=== PATIENT | female | born 1970 | race Caucasian/White ===

== ENCOUNTER 2020-02-12 08:18 | Outpatient (CLI) | payer OTHER, SELFPAY ==
--- NOTE | ~2020-02-12 | US_ITS ---
EXAMINATION: US carotid duplex BI EXAM DATE: 02/12/2020 09:04 INDICATION: Disturbance. TECHNIQUE: Grayscale, color and pulsed Doppler images of the cervical carotid arteries were obtained . The degree of vessel stenosis is placed in one of the following categories: normal, <50% stenosis, 50-69% stenosis, >=70% stenosis but less than near-occlusion, near-occlusion, or occlusion. Note that percent stenosis relative to normal distal artery lumen diameter is indirectly measured from velocit y measurements as described by Malcom, et al. Radiology 2003; 229:340-346. There is no prior study fo r comparison. FINDINGS: RIGHT SIDE: Right common carotid artery peak systolic velocity (PSV in cm/s): 128 Right bulb/internal carotid artery peak systolic velocity (PSV in cm/s): 123 Right internal carotid artery end diastolic velocity (EDV in cm/s): 33 Right ICA/CCA peak systolic ratio: 1.0 Right external carotid artery peak systolic velocity (PSV in cm/s): 198 Right vertebral artery antegrade flow: yes There is no focal plaque identified. LEFT SIDE: Left common carotid artery peak systolic velocity (PSV in cm/s): 122 Left bulb/internal carotid artery peak systolic velocity (PSV in cm/s): 110 Left internal carotid artery end diastolic velocity (EDV in cm/s): 37 Left ICA/CCA peak systolic ratio: 0.9 Left external carotid artery peak systolic velocity (PSV in cm/s): 122 Left vertebral artery antegrade flow: yes There is no focal plaque identified. IMPRESSION: 1. Normal right internal carotid artery. 2. Normal left internal carotid artery. Reviewed, dictated and finalized at location A.
== END 2020-02-12 08:19 | disposition home or self-care (01) ==
LOC: ANHIMG 08:20
PROVIDERS: PCP Internal Medicine; Visit Provider Clinical Nurse Specialist
DX: H53.9 Unspecified visual disturbance (principal)
CPT/HCPCS: 93880

== ENCOUNTER → 2021-09-28 14:49 | Outpatient (CLI) | payer OTHER, SELFPAY ==
--- NOTE | ~2021-09-28 | MR_ITS ---
EXAMINATION: MR shoulder RT wo con DATE: 09/28/2021 15:29 INDICATION: Right shoulder pain TECHNIQUE: Magnetic resonance imaging (MRI) of the right shoulder was performed without intravenous c ontrast. Sequences included axial PD-weighted FS FSE, coronal oblique PD-weighted FS FSE, coronal obl ique T2-weighted FS FSE, sagittal PD-weighted FS FSE, and sagittal T1-weighted SE. COMPARISON: None. FINDINGS: Coracoacromial arch: The acromion undersurface is curved in morphology (type II). The coracoacromial ligament is normal. M oderate acromioclavicular osteoarthritis with small inferiorly directed osteophytes. Rotator cuff: Severe supraspinatus tendinopathy with small amount of subtle bursal sided fraying without discrete t ear. Moderate infraspinatus tendinopathy also without discrete tear. The teres minor tendon is normal . Mild to moderate subscapularis tendinopathy with small split tear between the portion of the tendon attached to the lesser tuberosity and the portion attached to the transverse humeral ligament. Is pa rtial subluxation of the long head of the biceps tendon across the medial rim of the intertubercular groove and into the tear defect. Normal rotator cuff muscle bulk and signal. Biceps tendon, glenoid labrum and glenohumeral cartilage: Long head of the biceps tendon is normal. Small tear at the base of the 9:30-10:30 position of the po sterior superior glenoid labrum. Partial-thickness cartilage loss at the glenoid with smooth chondral surface which is greatest at the posterior superior glenoid. Additional partial thickness cartilage loss along the apex of the humeral head. Fluid: Physiologic amount of fluid in the glenohumeral joint and biceps tendon sheath. No loose osteochondr al bodies. Small amount of fluid in the subacromial/subdeltoid bursa consistent with mild bursitis. Bones: No fracture or pathologic marrow replacing process. Mild cystic changes along the superior facet of t he greater tuberosity as well as at the lesser tuberosity likely related to chronic rotator cuff dise ase. IMPRESSION: 1. Severe supraspinatus and moderate infraspinatus tendinopathy with small amount of shallow bursal s ided fraying of the distal supraspinatus tendon. 2. Mild to moderate subscapularis tendinopathy with the long head of the biceps tendon subluxed acros s the medial rim of the intertubercular groove into a 1 cm long longitudinal split tear situated betw een the portion of the tendon attached to the lesser tuberosity and the bursal side of the tendon whi ch is contiguous with the transverse humeral ligament. 3. Mild glenohumeral osteoarthritis with small tear at the posterior superior glenoid labrum. 4. Moderate acromioclavicular osteoarthritis with mild underlying subacromial/subdeltoid bursitis. Reviewed, dictated and finalized at location A. IMPRESSION: 1. Severe supraspinatus and moderate infraspinatus tendinopathy with small amou nt of shallow bursal sided fraying of the distal supraspinatus tendon. 2. Mild to moderate subscapularis tendinopathy with the long head of the biceps tendon subluxed across the medial rim of the intertubercular groove into a 1 c m long longitudinal split tear situated between the portion of the tendon attac hed to the lesser tuberosity and the bursal side of the tendon which is contigu ous with the transverse humeral ligament. 3. Mild glenohumeral osteoarthritis with small tear at the posterior superior g lenoid labrum. 4. Moderate acromioclavicular osteoarthritis with mild underlying subacromial/s ubdeltoid bursitis.
== END ==
PROVIDERS: Visit Provider Orthopaedic Surgery
DX: M19.011 Primary osteoarthritis, right shoulder (principal)
CPT/HCPCS: 73221

== ENCOUNTER 2022-09-02 00:59 | Day surgery (SDC) | payer OTHER, SELFPAY ==
[2022-08-16 13:31] VITALS: BMI 39.5
[2022-09-02 09:20] VITALS: BP 139/75; PULSE 60; RESP 18; TEMP 35.9; O2SAT 100
[2022-09-02] MEDS: LACTATED RINGERS 1,000 ML 150 ML IV CONT (09:29)
--- NOTE | 2022-09-02 09:33 | WPDANESEPPF ---
Anes - Initial Pre Proc Eval Procedure: Operation Date: 09/02/22 10:30 Proposed Procedures p Screening Colonoscopy - Jamie Dixon MD Date/Time: 09/02/22 09:33 Surgeon: Jamie Dixon MD Pre Op Diagnosis: neoplasm screening Patient Data Age: 52 Gender: F Height: 1.73 m Weight: 119 kg Last Vital Signs Temp 35.9 C L 09/02/22 09:20 Pulse 60 09/02/22 09:20 Resp 18 09/02/22 09:20 BP 139/75 09/02/22 09:20 Pulse Ox 100 09/02/22 09:20 O2 Del Method Room Air 09/02/22 09:20 Allergies Allergy/AdvReac Type Severity Reaction Status Date / Time No Known Allergies Allergy Verified 09/02/22 09:19 Home Medications Medication Instructions Recorded Confirmed Type multivitamin 1 tablet PO DAILY 04/17/21 08/16/22 History cetirizine 10 mg capsule (Zyrtec) 10 mg PO DAILY 07/17/22 08/16/22 History montelukast 10 mg tablet 10 mg PO DAILY 08/16/22 08/16/22 History Patient hx anesthesia problems: none Family hx anesthesia problems: none Results Review: All pre-operative results and documents have been reviewed as part of the pre-operative evaluation. [facility] Past Medical History Medical History Genital warts Hammer toe Screening mammogram, encounter for Surgical History Surgical History Delivery by section x2 2002, 2006 History of cervical polypectomy (01/24/12) in office--benign endocervical polyp History of dilation and curettage 02/04/12 hscope d&c--benign proliferative endometrium 02/23/14 hscope d&c--early secretory endometrium History of endometrial ablation 06/18/12 Novasure ablation--menorrhagia History of foot surgery (~2001) hammer toes History of rotator cuff surgery (03/18/17) left shoulder Family History Family History Father Diabetes mellitus Family history of lung cancer Family history of atrial fibrillation Heart disease Kidney disease Grandparent Family history of cardiovascular disease Family history of pancreatic cancer Family history of lung cancer Family history of throat cancer Mother Family history of liver disease Family history of atrial fibrillation Cerebrovascular accident Osteoporosis Social History Social History Smoking status: Never smoker Alcohol intake: current Drinks per week: 1 Alcohol use details: occasionally Substance use: never Substance use type: does not use Lack of Transportation: No Lack of Food: Never True Current Housing: I Have Housing Concerned About Future Housing: No Difficulty Paying Gas/Electric Bills: No Difficulty Paying for Meds: No Currently Unemployed: No Education: Bachelor's Degree Difficulty w/ Childcare or Family Care: No Living arrangements: with family Additional living arrangements comments: Occupation/Education: occupation 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[employer] Gender identity (if verbalized by the patient): Female Sexual Orientation (if Verbalized by the Patient): Straight or Heterosexual Spiritual care concerns: No Anes - Eval Final PreProcedure Day of Procedure 09/02/22 09:33 Patient weight: morbidly obese Heart: regular rate and rhythm Lungs: clear to auscultation and normal air movement Airway: Mallampati scale class II Neurological: alert and oriented Last oral intake: >/= 8 hours ASA classification: III Emergent: no Anesthetic plan: proceed Anesthesia type and monitoring: general GIVS Results Review: All pre-operative results and documents have been reviewed as part of the pre-operative evaluation. Informed Consent: The patient's anesthetic plan and its attendant risks and benefits were discussed with the patient/family/POA. Question
--- NOTE | 2022-09-02 09:57 | PM.HPGS ---
History of Present Illness History of Present Illness Consent: Risks, benefits, and alternatives have been discussed and questions answered. Patient agrees to proceed with procedure. Chief complaint: neoplasm screening Narrative: Romi Bradley is a 52 year old female here for first screening colonoscopy Review of Systems Constitutional: Constitutional: Denies headache(s) and Denies weakness Eyes: Eyes: Denies blurry vision ENT: Reports Normal hearing present, Denies headache(s) and Denies neck pain Cardiovascular: Cardiovascular: Denies chest pain and Denies dyspnea Respiratory: Respiratory: Denies dyspnea Gastrointestinal: Gastrointestinal: Reports no additional gastrointestinal complaints Genitourinary: Genitourinary: Denies dysuria Musculoskeletal: Musculoskeletal: Denies neck pain Integumentary/Breasts: Skin/Breast: Denies dry skin Neurologic: Reports Normal hearing present, Denies headache(s) and Denies weakness Psychiatric: Psychiatric: Denies anxiety Endocrine: Endocrine: Denies change in body appearance Hematologic/Lymphatic: Hematologic/Lymphatic: Denies easy bleeding Allergic/Immunologic: Allergic/Immunologic: Denies urticaria PMF Past Medical History Medical History (Updated 09/02/22 @ 09:57 by Jamie Dixon MD) Colon cancer screening Genital warts Hammer toe Screening mammogram, encounter for Surgical History Surgical History Delivery by section x2 2002, 2006 History of cervical polypectomy (01/24/12) in office--benign endocervical polyp History of dilation and curettage 02/04/12 hscope d&c--benign proliferative endometrium 02/23/14 hscope d&c--early secretory endometrium History of endometrial ablation 06/18/12 Novasure ablation--menorrhagia History of foot surgery (~2001) hammer toes History of rotator cuff surgery (03/18/17) left shoulder Family History Family History Father Diabetes mellitus Family history of lung cancer Family history of atrial fibrillation Heart disease Kidney disease Grandparent Family history of cardiovascular disease Family history of pancreatic cancer Family history of lung cancer Family history of throat cancer Mother Family history of liver disease Family history of atrial fibrillation Cerebrovascular accident Osteoporosis Social History Social History Smoking status: Never smoker Alcohol intake: current Drinks per week: 1 Alcohol use details: occasionally Substance use: never Substance use type: does not use Lack of Transportation: No Lack of Food: Never True Current Housing: I Have Housing Concerned About Future Housing: No Difficulty Paying Gas/Electric Bills: No Difficulty Paying for Meds: No Currently Unemployed: No Education: Bachelor's Degree Difficulty w/ Childcare or Family Care: No Living arrangements: with family Additional living arrangements comments: Occupation/Education: occupation 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[employer] Gender identity (if verbalized by the patient): Female Sexual Orientation (if Verbalized by the Patient): Straight or Heterosexual Spiritual care concerns: No Meds Home Medications and Allergies Home Medications Medication Instructions Recorded Confirmed Type multivitamin 1 tablet PO DAILY 04/17/21 08/16/22 History cetirizine 10 mg capsule (Zyrtec) 10 mg PO DAILY 07/17/22 08/16/22 History montelukast 10 mg tablet 10 mg PO DAILY 08/16/22 08/16/22 History Allergies Allergy/AdvReac Type Severity Reaction Status Date / Time No Known Allergies Allergy Verified 09/02/22 09:19 Vital Signs Vital Signs - 24 hr 09/02/22 09:20 Temperature 96.6 F L Pulse Rate 60 Respiratory Rate 18 Blood Pressure 139/
[2022-09-02 10:18] VITALS: BP 87/48; PULSE 82; RESP 20; O2SAT 97
[2022-09-02 10:28] VITALS: BP 97/52; PULSE 72; RESP 17; O2SAT 96
[2022-09-02 10:38] VITALS: BP 102/52; PULSE 74; RESP 16; O2SAT 98
== END 2022-09-02 10:49 | disposition home or self-care (01) ==
PROVIDERS: PCP Physician Assistant; Visit Provider Internal Medicine Gastroenterology
PROC: 0DJD8ZZ Inspection of Lower Intestinal Tract, Via Natural or Artificial Opening Endoscopic (ICD-10-PCS; CPT 45378; principal; 2022-09-02 10:30)
DX: Z12.11 Encounter for screening for malignant neoplasm of colon (principal); K57.30 Diverticulosis of large intestine without perforation or abscess without bleeding; K64.8 Other hemorrhoids; E66.01 Morbid (severe) obesity due to excess calories; Z68.39 Body mass index [BMI] 39.0-39.9, adult
CPT/HCPCS: 45378; J2704; J7120

== ENCOUNTER 2022-09-27 08:03 | Outpatient (CLI) | payer OTHER, SELFPAY ==
--- NOTE | ~2022-09-27 | MM_ITS ---
EXAMINATION: MM screening laura BI w cami HISTORY: Screening mammogram TECHNIQUE: Craniocaudal and mediolateral oblique 3-D tomosynthesis images were obtained and synthetic 2-D images were generated. CAD analysis was submitted and interpreted. COMPARISON: 03/23/2018, 02/22/2017, 12/21/2015 bilateral screening mammogram examinations BREAST PARENCHYMAL COMPOSITION: There are scattered areas of fibroglandular density. FINDINGS: There is no evidence of suspicious mass, calcification, or architectural distortion to sugg est malignancy in either breast. There has been no suspicious interval change. IMPRESSION: 1. No mammographic evidence of malignancy. 2. Recommend routine screening mammography in one year. BI-RADS Category 1: Negative Reviewed, dictated and finalized at location A.
== END 2022-09-27 08:04 | disposition home or self-care (01) ==
LOC: ANHIMG 08:04
PROVIDERS: PCP Physician Assistant; Visit Provider Obstetrics & Gynecology
DX: Z12.31 Encounter for screening mammogram for malignant neoplasm of breast (principal)
CPT/HCPCS: 77063; 77067

== ENCOUNTER 2023-09-29 07:21 | Outpatient (CLI) | payer OTHER, SELFPAY ==
--- NOTE | ~2023-09-29 | MM_ITS ---
EXAMINATION: MM screening laura BI w cami HISTORY: Screening TECHNIQUE: Craniocaudal and mediolateral oblique 3-D tomosynthesis images were obtained and synthetic 2-D images were generated. CAD analysis was submitted and interpreted. COMPARISON: Comparison to multiple prior studies sequentially, with oldest reviewed study dated 09/2014. BREAST PARENCHYMAL COMPOSITION: Not dense: There are scattered areas of fibroglandular density. FINDINGS: There is no evidence of suspicious mass, calcification, or architectural distortion to sugg est malignancy in either breast. There has been no suspicious interval change. IMPRESSION: 1. No mammographic evidence of malignancy. 2. Recommend routine screening mammography in one year. BI-RADS Category 1: Negative Reviewed, dictated and finalized at location A.
== END 2023-09-29 07:22 | disposition home or self-care (01) ==
LOC: ANHIMG 07:23
PROVIDERS: PCP Physician Assistant; Visit Provider Obstetrics & Gynecology
DX: Z12.31 Encounter for screening mammogram for malignant neoplasm of breast (principal)
CPT/HCPCS: 77063; 77067

== ENCOUNTER 2023-11-07 16:58 | Observation (INO) | payer OTHER, SELFPAY ==
[2023-11-07] VITALS (15 sets, daily range): BP systolic 102–142; BP diastolic 67–118; PULSE 56–158; RESP 12–20; TEMP 36.2–36.8; O2SAT 97–100
--- NOTE | ~2023-11-07 | XR_ITS ---
EXAMINATION: XR chest 2V DATE: 11/07/2023 17:39 INDICATION: Mid chest pain TECHNIQUE: PA and lateral views of the chest were obtained. COMPARISON: Chest radiograph dated 02/08/2013 FINDINGS: The lungs remain clear with no focal airspace opacities, pulmonary edema, pleural effusion or pneumot horax. The cardiomediastinal silhouette is normal. Moderate thoracic spondylosis. IMPRESSION: 1. No acute cardiopulmonary disease. Reviewed, dictated and finalized at location A.
--- NOTE | ~2023-11-07 | CT_ITS ---
EXAMINATION: CTA chest PE protocol DATE: 11/08/2023 17:43 INDICATION: AFib, chest pain, elevated Trop TECHNIQUE: Computed tomography angiography (CTA) of the chest was performed with 100 mL Omnipaque-350 intravenous contrast timed to evaluate the pulmonary arteries. Coronal maximum intensity projection 3D-reconstructions were created by the technologist. The dose-length product (DLP) was 840.19 mGy-cm. Automated exposure control and iterative reconstruction technique were employed. COMPARISON: X-ray chest, same date. FINDINGS: Lung parenchyma and airways: Scattered patchy areas of groundglass opacity. Mild septal thickening. P atent airways. Pleura: Unremarkable. Thoracic inlet, axillae and chest wall: Unremarkable. Thoracic aorta: No significant dilation. No dissection. Mediastinum: Normal. Heart and pericardium: Mild cardiomegaly. Coronary artery calcifications: Absent. Upper abdomen: No significant finding. Bones: No acute osseous finding. Pulmonary arteries: Study quality: Adequate. No pulmonary emboli detected. IMPRESSION: No CT evidence of acute pulmonary embolus. No acute process detected in the chest. Reviewed, dictated and finalized at location K.
--- NOTE | 2023-11-07 17:09 | ECG_ITS ---
SEE SCANNED COPY FOR CONFIRMED REPORT MTDD
[2023-11-07 17:25] LABS: Basophils Percent Auto 0.5 % (0.2-1.2); Eosinophils Absolute Auto 0.1 K/mm3 (0-0.3); Eosinophils Percent Auto 1.6 % (0-4.4); Hematocrit 41.8 % (37.0-47.0); Hemoglobin 13.4 g/dL (12.0-15.0); Immature Granulocyte Absolute 0.04 K/mm3 (0.00-0.031); Immature Granulocyte Percent A 0.5 % (0-0.5); Lymphocytes Absolute Auto 1.65 K/mm3 (0.9-3.2); Lymphocytes Percent Auto 21.3 % (18.3-44.2); Mean Corpuscular HGB Conc 32.1 g/dl (32-36); Mean Corpuscular Hemoglobin 27.5 pg (26-34); Mean Corpuscular Volume 85.7 fl (80-100); Mean Platelet Volume 9.8 fl (7.4-10.4); Monocytes Absolute Auto 0.5 K/mm3 (0.1-0.6); Monocytes Percent Auto 6.7 % (2.6-8.5); Neutrophils Absolute Auto 5.4 K/mm3 (1.3-6.7); Neutrophils Percent Auto 69.4 % (45.5-73.1); Platelet Count Result 301 k/mm3 (150-375); Red Blood Count 4.88 M/mm3 (4.2-5.4); Red Cell Distribution Width 14.2 % (11.5-14.5); White Blood Count 7.7 K/mm3 (4.5-10.0)
[2023-11-07 17:34] LABS: Prothrombin Time 13.5 Seconds (11.1-14.7)
[2023-11-07 17:35] LABS: Alanine Aminotransferase 33 U/L (6-35); Albumin Level 4.2 g/dL (3.5-5.1); Alkaline Phosphatase 87 U/L (38-126); Anion Gap 8 mmol/L (4-12); Aspartate Amino Transferase 37 U/L (14-36); Bilirubin,Total 0.5 mg/dL (0.2-1.3); Blood Urea Nitrogen 16 mg/dL (7-17); Carbon Dioxide 23 mmol/L (22-30); Chloride 108 mmol/L (98-107); Estimated CRCL calculation 129 ml/min; Estimated Glomerular Filt Rate > 60; Glucose 119 mg/dL (65-110); Lipase 202 U/L (23-300); Partial Thromboplastin Time 30.7 Seconds (22.3-36.8); Potassium 4.1 mmol/L (3.4-5.0); Sodium 139 mmol/L (137-145)
[2023-11-07 17:47] LABS: Troponin I 0.026 ng/mL (0.000-0.034)
--- NOTE | 2023-11-07 17:47 | ED.GENADULT ---
HPI - General Adult General Chief complaint: Arrhythmia/Palpitations Stated complaint: chest pain/panic attack Time Seen by Provider: 11/07/23 17:25 History of Present Illness HPI narrative: Patient is a 53 year old female with history of vertigo, phantom smells here with palpitations and chest pain. Patient notes that at 1 pm she began feeling mid sternal chest pressure along with palpitations. She notes that it is anxiety provoking and caused her to seek care. About 2 months ago she had a similar episode but it self resolved. She has been awaiting to get in with her PCP but there has been a delay in being able to get into the clinic and coordinate schedules with her PCP. Patient denies any recent illnesses. Denies any changes in medications. No personal cardiac history. She notes that both of her parents have history of afib. Related Data Home Medications Medication Instructions Recorded Confirmed multivitamin 1 tablet PO DAILY 04/17/21 07/18/23 cetirizine 10 mg capsule (Zyrtec) 10 mg PO DAILY 07/17/22 07/18/23 calcium carbonate (Calcium Antacid) 400 mg PO DAILY 04/28/23 07/18/23 Allergies Allergy/AdvReac Type Severity Reaction Status Date / Time No Known Allergies Allergy Verified 11/07/23 17:08 Review of Systems Review of Systems: All systems reviewed & are unremarkable except as noted in HPI and below [facility] Past Medical History Medical History Colon cancer screening Genital warts Hammer toe Screening mammogram, encounter for Surgical History Surgical History Delivery by section x2 2002, 2006 History of cervical polypectomy (01/24/12) in office--benign endocervical polyp History of dilation and curettage 02/04/12 hscope d&c--benign proliferative endometrium 02/23/14 hscope d&c--early secretory endometrium History of endometrial ablation 06/18/12 Novasure ablation--menorrhagia History of foot surgery (~2001) hammer toes History of rotator cuff surgery (03/18/17) left shoulder Family History Family History Father Diabetes mellitus Family history of lung cancer Family history of atrial fibrillation Heart disease Kidney disease Grandparent Family history of cardiovascular disease Family history of pancreatic cancer Family history of lung cancer Family history of throat cancer Mother Family history of liver disease Family history of atrial fibrillation Cerebrovascular accident Osteoporosis Carcinoma of colon Social History Social History Smoking status: Never smoker Second hand tobacco smoke exposure: No Alcohol intake: current Drinks per week: 1 Alcohol use details: occasionally Substance use: never Substance use type: does not use Lack of Transportation: No Lack of Food: Never True Current Housing: I Have Housing Concerned About Future Housing: No Difficulty Paying Gas/Electric Bills: No Difficulty Paying for Meds: No Currently Unemployed: No Education: Bachelor's Degree Difficulty w/ Childcare or Family Care: No Living arrangements: with family Additional living arrangements comments: Occupation/Education: occupation 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 HEAD: Normocephalic, atraumatic. EYES: PERRLA and EOMI. ENT: Nares clear. Mucous membranes moist. NECK: Supple. CHEST: Clear to auscultation. No respiratory distress. HEART: Tachycardia, irregularly irregular. Normal peripheral pulses. ABDOMEN: Soft,
[2023-11-07] MEDS: METOPROLOL TARTRATE INJ 5 MG/5 ML VIAL IV PUSH (17:58)
[2023-11-07] MEDS: LACTATED RINGERS 1,000 ML 999 ML IV CONT (18:02)
[2023-11-07] MEDS: ONDANSETRON INJ 4 MG/2 ML VIAL IV PUSH (18:02)
[2023-11-07] MEDS: ASPIRIN 81 MG CHEWABLE TABLET 324 MG PO (18:15)
[2023-11-07 20:47] LABS: Troponin I 0.128 ng/mL (0.000-0.034)
--- NOTE | 2023-11-07 20:50 | ECG_ITS ---
SEE SCANNED COPY FOR CONFIRMED REPORT MTDD
[2023-11-07] MEDS: ENOXAPARIN 120 MG/0.8 ML SYRINGE SUB-Q (21:32)
--- NOTE | 2023-11-07 21:43 | ADMGEN ---
2143: This patient, Romi Bradley, was admitted to IMU Room 211-01. Patient/family oriented to hospital policies and general routines including ID bracelet, bed and alarms, visiting hours, pain management, procedures, bathroom and other care routines, personal items, smoking policy, room service/diet, and visiting hours. Information on how to activate the Rapid Response Team has been discussed. Patient/Family are encouraged to report perceived risks to care and to ask questions if they do not understand what they are told or what they should do.
--- NOTE | 2023-11-07 23:22 | PM.IMHP ---
H&P: HPI History of Present Illness Date/Time: 11/07/23 23:00 Chief Complaint: Palpitations. Narrative: This is a pleasant 53-year-old female out significant medical history presented to the emergency department via private vehicle for evaluation of palpitations. The patient provides the following history. She has been working on a stressful project at work and today she was sitting at her desk when she suddenly developed palpitations and heaviness in the center of her chest associated with mild shortness of breath and nausea. Symptoms lasted several hours and did not let up so she came in for evaluation. On arrival to the ED her heart rate was in the upper 190s, presumably in rapid atrial fibrillation. She converted to normal sinus rhythm after receiving 5 mg IV metoprolol tartrate. The heaviness she had been feeling in her chest went away as soon as her heart rate slowed down. She has had similar palpitation though they have always been self-limiting and have never lasted this long. Several times they have occurred at nighttime or while lying down in bed. She has been told that she has a heart murmur and remembers having an echo done many years ago and that it was benign. She has no known history of thyroid disease or sleep apnea. No significant caffeine or alcohol use. She has not had any episodes of exertional chest pain or shortness of breath. Review of Systems Review of Systems: 12 systems were reviewed and are negative except for as per HPI. [facility] Past Medical History Medical History (Updated 11/07/23 @ 23:27 by Brionna Kolb PA-C) Morbid obesity with BMI of 40.0-44.9, adult Perimenopause Phantosmia Surgical History Surgical History Delivery by section x2 2002, 2006 History of cervical polypectomy (01/24/12) in office--benign endocervical polyp History of dilation and curettage 02/04/12 hscope d&c--benign proliferative endometrium 02/23/14 hscope d&c--early secretory endometrium History of endometrial ablation 06/18/12 Novasure ablation--menorrhagia History of foot surgery (2001) hammer toes History of rotator cuff surgery (03/18/17) left shoulder Family History Family History Father Diabetes mellitus Family history of lung cancer Family history of atrial fibrillation Heart disease Kidney disease Grandparent Family history of cardiovascular disease Family history of pancreatic cancer Family history of lung cancer Family history of throat cancer Mother Family history of liver disease Family history of atrial fibrillation Cerebrovascular accident Osteoporosis Carcinoma of colon Social History Social History (Updated 11/07/23 @ 23:28 by Brionna Kolb PA-C) Social History: Surrogate medical decision maker: Doyle Rohanlele, spouse. Code status: Full code. Smoking status: Never smoker Second hand tobacco smoke exposure: No Alcohol intake: current Drinks per week: 1 Alcohol use details: occasionally Substance use: never Substance use type: does not use Do You Feel Safe in your Home?: Yes Lack of Transportation: No Lack of Food: Never True Current Housing: I Have Housing Concerned About Future Housing: No Difficulty Paying Gas/Electric Bills: No Difficulty Paying for Meds: No Currently Unemployed: No Education: Bachelor's Degree Difficulty w/ Childcare or Family Care: No Living arrangements: with family Additional living arrangements comments: . Lives with spouse in [place]. They have 2 children. 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 Spiritual care concerns: No Meds Home Medications and Allergies Home Medications Medication Instructions Recorded Confirmed Type multivitamin 1 tablet PO DAILY 04/17/21
[2023-11-07] MEDS: MELATONIN 5 MG TABLET PO (23:30)
[2023-11-07 23:34] LABS: Cholesterol 191 mg/dL (0-200); HDL Direct 51 mg/dL; Triglycerides 140 mg/dL (<150)
[2023-11-07 23:44] LABS: LDL Cholesterol Direct 116 mg/dL
[2023-11-07 23:52] LABS: Troponin I 0.396 ng/mL (0.000-0.034)
[2023-11-07] MEDS: METOPROLOL TARTRATE 25 MG TABLET PO (23:59)
[2023-11-08] VITALS (13 sets, daily range): BP systolic 102–117; BP diastolic 51–71; PULSE 60–92; RESP 16–18; TEMP 36.2–36.8; O2SAT 95–99
[2023-11-08 05:02] LABS: Anion Gap 2 mmol/L (4-12); Blood Urea Nitrogen 17 mg/dL (7-17); Calcium 8.6 mg/dL (8.4-10.2); Carbon Dioxide 31 mmol/L (22-30); Chloride 106 mmol/L (98-107); Estimated CRCL calculation 112 ml/min; Estimated Glomerular Filt Rate > 60; Glucose 108 mg/dL (65-110); Potassium 4.5 mmol/L (3.4-5.0); Sodium 139 mmol/L (137-145)
--- NOTE | 2023-11-08 06:00 | ECHO_ITS ---
Patient Info Name: Romi Bradley Age: 53 years : 1970 Gender: Female Ht: 68 in Wt: 273 lbs BSA: 2.50 m2 HR: 63 bpm BP: 102 / 51 mmHg Heart Rhythm: Sinus Rhythm Technical Quality: Good Exam Date: 11/08/2023 8:43 AM Exam Location: Echo Lab Patient Status: Outpatient Admit Date: 11/07/2023 Staff Ordering Physician: Radha Tello MD Java Software Engineer: Prince Leija RDCS Attending Provider: Sánchez Fernandez MD Exam Type: CA echo doppler color flow Study Info Indications - elevated troponin Complete two-dimensional, color flow and Doppler transthoracic echocardiogram is performed. Summary 1. Complete two-dimensional, color flow and Doppler transthoracic echocardiogram is performed. 2. Technically difficult study with limited views. Regional wall motion assessment limited due to poor endomyocardial border definition several views. 3. Left ventricular chamber dimension is normal. 4. Left ventricular systolic function is normal, estimated at 65-70%. 5. There is moderately increased left ventricular wall thickness. 6. The left ventricular diastolic function is normal. 7. Left atrial chamber dimension is mildly enlarged. 8. Right atrial chamber dimension is mildly enlarged. 9. There is mild mitral valve regurgitation. 10. The mitral valve has thickened leaflets. 11. There is trace tricuspid valve regurgitation. 12. Mild pulmonary hypertension, estimated pulmonary arterial systolic pressure is 35 mmHg. Left Ventricle Technically difficult study with limited views. Regional wall motion assessment limited due to poor endomyocardial border definition several views. Left ventricular chamber dimension is normal. Left ventricular systolic function is normal, estimated at 65-70%. There is moderately increased left ventricular wall thickness. The left ventricular diastolic function is normal. Right Ventricle Right ventricular chamber dimension is normal. Right ventricular systolic function is normal. Left Atria Left atrial chamber dimension is mildly enlarged. Right Atria Right atrial chamber dimension is mildly enlarged. Aortic Valve The aortic valve is not well visualized. There is no aortic valve stenosis. There is no aortic valve regurgitation. Pulmonic Valve The pulmonic valve is not well visualized. There is trace pulmonic regurgitation. Mitral Valve The mitral valve has thickened leaflets. There is mild mitral valve regurgitation. Tricuspid Valve The tricuspid valve leaflets are normal. There is trace tricuspid valve regurgitation. Mild pulmonary hypertension, estimated pulmonary arterial systolic pressure is 35 mmHg. Pericardium/Pleural The pericardium appears normal. There is small pericardial effusion. Aorta The aortic root size at the sinus of Valsalva is normal. The prox ascending aorta size is normal. Left Ventricular Outflow Tract Name Value Normal LVOT 2D LVOT Diameter 2.2 cm LVOT Doppler LVOT Peak Gradient 11 mmHg LVOT Mean Gradient 6 mmHg LVOT VTI 40 cm LVOT VTI/AV VTI Ratio 1.0 LVOT Stroke Volume 155 ml LVOT CO
[2023-11-08] MEDS: CALCIUM CARBONATE (TUMS) 500 MG (200 MG ELEMENTAL) 400 MG BY MOUTH (09:12)
[2023-11-08] MEDS: LORATADINE 10 MG TABLET PO (09:13)
[2023-11-08] MEDS: METOPROLOL TARTRATE 25 MG TABLET PO (09:13)
[2023-11-08] MEDS: MULTIVITAMINS THERAPEUTIC TAB (*BKC) 1 TABLET PO (09:14)
[2023-11-08] MEDS: MONTELUKAST SODIUM 10 MG TABLET PO (09:14)
--- NOTE | 2023-11-08 11:14 | PM.CNCAR ---
Assessment and Plan Assessment and plan (1) Atrial fibrillation with rapid ventricular response: Code(s): I48.91 - Unspecified atrial fibrillation Status: Acute Assessment and Plan: New diagnosis paroxysmal atrial fibrillation with RVR symptomatic presents with sustained very rapid AFib with heart rates in the 190s with associated chest pain, shortness of breath, nausea high fatigue. Chest pain resolved immediately after conversion to sinus rhythm with gradual resolution of her other symptoms. CHADS2 Vasc score 1 (female) associated with nonetheless, given elevated troponin associated chest pain I recommend initiation of aspirin 81 mg daily as well as statin therapy. Continue beta-dean therapy but change metoprolol tartrate to Toprol XL 25 mg daily upon discharge. I discussed pathophysiology, management options associated with atrial fibrillation bleeding versus stroke risk, antiplatelet versus anticoagulant therapy antiarrhythmic versus AV jasper blocking agents. We discussed at length contributing medical conditions and assessing for secondary reversible treatable causes. Apnea link negative. TSH normal. Electrolytes unremarkable. (2) Elevated troponin: Code(s): R79.89 - Other specified abnormal findings of blood chemistry Status: Acute Assessment and Plan: As above, while troponin elevation most likely type 2 infarction secondary to demand ischemia not 2nd to primary acute coronary syndrome and/or plaque rupture given associated chest pain with elevated troponin on recommend outpatient noninvasive ischemic evaluation with Lexiscan nuclear stress test to be set up in our office. Furthermore, add aspirin 81 mg daily, Atorvastatin 40 mg at bedtime. Repeat troponin and 12 lead ECG. She has no known prior history of CAD, myocardial infarction. Repeat 12 lead ECG. The patient remains asymptomatic, sinus rhythm with hour troponin trend improvement in ECG changes she may be acceptable for discharge later today to follow up as an outpatient within the next 4 weeks had a stress test with the next 1-2 weeks. Greatly he discussion held with the patient this regard. Patient verbalized understanding agree with care. (3) LVH (left ventricular hypertrophy): Code(s): I51.7 - Cardiomegaly Status: Acute Assessment and Plan: Moderate LVH by echocardiogram without a known history of hypertension or prior treatment etiology unclear at this time. No other symptoms or history suggestive of high likelihood for infiltrative process at this time. Nonetheless, patient has been counseled to monitor blood pressure closely at home. Further recommendations and potential addition of Humberto inhibitor versus ARB may be considered as appropriate. She is not decompensated heart failure and is otherwise asymptomatic in this regard. This was an incidental finding yet nonetheless with that should be monitored moving forward as an outpatient. (4) Mixed hyperlipidemia: Code(s): E78.2 - Mixed hyperlipidemia Status: Acute Assessment and Plan: As above, add atorvastatin 40 mg at bedtime. (5) Morbid obesity with BMI of 40.0-44.9, adult: Code(s): E66.01 - Morbid (severe) obesity due to excess calories; Z68.41 - Body mass index [BMI] 40.0-44.9, adult Status: Acute Assessment and Plan: Lifestyle modification counseling performed. History of Present Illness History of Present Illness Consult date/time: Date of service: 11/08/23 11:14 Requesting physician: Brionna Kolb PA-C Consult reason: atrial fibrillation Reason For Visit: New Onset AFIB with RVR,Elevated Troponin Narrative: Patient is a 53-year-old female with no significant past medical history who presented emergency department complaints of palpitations which began suddenly while at work during stressful situation with associated heaviness center of her chest, shortness of breath and nausea. The symptoms persisted fo
--- NOTE | 2023-11-08 11:16 | ECG_ITS ---
SEE SCANNED COPY FOR CONFIRMED REPORT MTDD
[2023-11-08 12:29] LABS: Troponin I 0.276 ng/mL (0.000-0.034)
--- NOTE | 2023-11-08 18:16 | PM.DS ---
DS: Admitting Diagnosis Discharge Date 11/08/23 Admitting Diagnosis Palpitations DS: Discharge Diagnosis Discharge Diagnosis (1) Atrial fibrillation with rapid ventricular response: Code(s): I48.91 - Unspecified atrial fibrillation Status: Acute (2) Elevated troponin: Code(s): R79.89 - Other specified abnormal findings of blood chemistry Status: Acute (3) LVH (left ventricular hypertrophy): Code(s): I51.7 - Cardiomegaly Status: Acute (4) Morbid obesity with BMI of 40.0-44.9, adult: Code(s): E66.01 - Morbid (severe) obesity due to excess calories; Z68.41 - Body mass index [BMI] 40.0-44.9, adult Status: Acute (5) Mixed hyperlipidemia: Code(s): E78.2 - Mixed hyperlipidemia Status: Acute DS: Summary Hospital Course Reason for hospitalization: 53yo female with morbid obesity here for palpitations. Please see H&P for details. Hospital Course: The patient presented to the emergency department for evaluation of palpitations and mid chest heaviness. CXR was clear. CBC, CMP, PT, PTT and lipase were normal. TSH normal. Troponin peaked at 0.396. She was found to be in rapid atrial fibrillation but converted to normal sinus rhythm after receiving 5 mg IV metoprolol. EKG showing normal sinus with LVH. She does not have HTN. Apnea link was normal on room air. Echo showing normal LV systolic and diastolic fxn with EF 65-70%, moderately increased LV wall thickness and mild valvular disease. Also with mild pulmonary HTN. Elevated Troponin related to demand ischemia from the rapid atrial fibrillation. Cardiology consulted. She ws monitored on tele. Tele showing 8 beat run of NSVT. Potassium and mag levels normal. She did receive aspirin 324 mg x 1 and enoxaparin 1 milligram/kilogram x1 as well but further anticoagulation was held. [id number] 1. She was started on oral metoprolol. CTA chest was negative for PE. She overall did well and was able to be discharged home on 11/08/23. Status at Discharge Cognitive/behavioral status at discharge: stable Time Spent with Patient Time attestation: Total time spent providing and/or coordinating discharge services: 35 minutes Time spent: Greater than 30 minutes Exam Narrative: AF 98.0 115/65 68 18 97% ra Gen - NARD Chest - CTA bilaterally, nml RR CV - RRR S1/S2. Tele showing 8 beat run of NSVT Abd - Soft, NT/ND, Positive BS Ext - No pedal edema Neuro - Alert and oriented. Nonfocal exam. Psych - Nml mood and affect Skin - Warm and dry DS: Data Data Completed and Pending Labs on day of discharge: Labs from last 24 hours 11/08/23 11/08/23 11/07/23 11:55 03:53 23:13 Sodium 139 Potassium 4.5 Chloride 106 Carbon Dioxide 31 H Anion Gap 2 L BUN 17 Creatinine 0.70 Estim Creat Clear Calc 112 Estimated GFR > 60 Glucose 108 Calcium 8.6 Troponin I 0.276 H* 0.396 H* D Triglycerides 140 Cholesterol 191 LDL Cholesterol Direct 116 HDL Direct 51 TSH 11/07/23 11/07/23 20:15 17:18 Sodium Potassium Chloride Carbon Dioxide Anion Gap BUN Creatinine Estim Creat Clear Calc Estimated GFR Glucose Calcium Troponin I 0.128 H* D Triglycerides Cholesterol LDL Cholesterol Direct HDL Direct TSH 1.850 Discharge Plan Discharge Attending physician on discharge: Obey Brenner Consulting providers: Jean Guillaume Discharging Clinician: Obey Brenner Anticipated Discharge Date/Time: 11/08/23 18:33 Patient Disposition: Home, Self-Care Activity: no straining Diet: heart healthy Discharge Instructions: Check blood pressure 1 to 2 times a day. Record and bring into your doctor for review. Call your doctor if your blood pressure is greater than 180/110. Contact your doctor or call 911 and come to the Emergency Room if you have recurrent chest pain, palpitations or other worrisome symp
--- NOTE | 2023-11-08 20:19 | PC.NURSE ---
Patient discharged by Rochelle Hensley RN.
== END 2023-11-08 19:30 | disposition home or self-care (01) ==
LOC: ANHED 21:17 → ANHIMU 21:43
PROVIDERS: Internal Medicine Cardiovascular Disease; Physician Assistant; Admitting Provider Hospitalist; Emergency Provider Student in an Organized Health Care Education/Training Program; PCP Physician Assistant; Visit Provider Internal Medicine
DX: I48.91 Unspecified atrial fibrillation (principal); I34.0 Nonrheumatic mitral (valve) insufficiency; R79.89 Other specified abnormal findings of blood chemistry; I51.7 Cardiomegaly; R43.9 Unspecified disturbances of smell and taste; F41.9 Anxiety disorder, unspecified; E78.2 Mixed hyperlipidemia; I27.20 Pulmonary hypertension, unspecified; E66.01 Morbid (severe) obesity due to excess calories; Z68.41 Body mass index [BMI] 40.0-44.9, adult; F10.90 Alcohol use, unspecified, uncomplicated; Z79.899 Other long term (current) drug therapy
CPT/HCPCS: 36415; 71046; 71275; 80048; 80053; 80061; 83690; 83735; 84443; 84484; 85025; 85610; 85730; 93005; 93306; 94762; 96361; 96372; 96374; 96375; 99285; A9270; G0378; J1650; J2405; J7120; Q9967

== ENCOUNTER 2023-11-21 13:56 | Outpatient (CLI) | payer OTHER, SELFPAY ==
[2023-11-21 14:14] LABS: Basophils Absolute Auto 0.1 K/mm3 (0.0-0.1); Basophils Percent Auto 0.8 % (0.2-1.2); Eosinophils Absolute Auto 0.1 K/mm3 (0-0.3); Eosinophils Percent Auto 2.1 % (0-4.4); Hematocrit 41.3 % (37.0-47.0); Hemoglobin 13.4 g/dL (12.0-15.0); Immature Granulocyte Absolute 0.02 K/mm3 (0.00-0.031); Immature Granulocyte Percent A 0.3 % (0-0.5); Lymphocytes Absolute Auto 1.66 K/mm3 (0.9-3.2); Lymphocytes Percent Auto 26.6 % (18.3-44.2); Mean Corpuscular HGB Conc 32.4 g/dl (32-36); Mean Corpuscular Hemoglobin 27.7 pg (26-34); Mean Corpuscular Volume 85.5 fl (80-100); Mean Platelet Volume 9.9 fl (7.4-10.4); Monocytes Absolute Auto 0.4 K/mm3 (0.1-0.6); Monocytes Percent Auto 6.7 % (2.6-8.5); Neutrophils Percent Auto 63.5 % (45.5-73.1); Platelet Count Result 268 k/mm3 (150-375); Red Blood Count 4.83 M/mm3 (4.2-5.4); Red Cell Distribution Width 14.1 % (11.5-14.5); White Blood Count 6.2 K/mm3 (4.5-10.0)
[2023-11-21 16:42] LABS: Alanine Aminotransferase 46 U/L (6-35); Albumin Level 4.6 g/dL (3.5-5.1); Alkaline Phosphatase 84 U/L (38-126); Anion Gap 6 mmol/L (4-12); Aspartate Amino Transferase 37 U/L (14-36); Bilirubin,Total 0.7 mg/dL (0.2-1.3); Blood Urea Nitrogen 12 mg/dL (7-17); Calcium 9.7 mg/dL (8.4-10.2); Carbon Dioxide 31 mmol/L (22-30); Chloride 104 mmol/L (98-107); Cholesterol 144 mg/dL (0-200); Estimated Glomerular Filt Rate > 60; Glucose 94 mg/dL (65-110); HDL Direct 56 mg/dL; Sodium 141 mmol/L (137-145); Triglycerides 143 mg/dL (<150)
[2023-11-21 16:53] LABS: LDL Cholesterol Direct 69 mg/dL
[2023-11-21 18:05] LABS: Folic Acid > 20.0 ng/mL (2.76->20)
== END 2023-11-21 13:57 | disposition home or self-care (01) ==
LOC: ANHLAB 13:58
PROVIDERS: PCP Physician Assistant; Visit Provider Physician Assistant
DX: Z00.00 Encounter for general adult medical examination without abnormal findings (principal)
CPT/HCPCS: 36415; 80053; 80061; 82607; 82746; 84443; 85025

== ENCOUNTER 2024-03-09 12:30 | Outpatient (RCR) | payer OTHER, SELFPAY ==
--- NOTE | 2024-02-04 13:46 | OPREHPOC ---
Outpatient Therapy Plan of Care This is a Multidisciplinary Plan of Care that may contain components documented by all disciplines (PT, OT, and ST.) PT Problem 1 PT Problem #1 Knowledge Deficit PT Goal 1 Goal *indep with HEP Target Visit 8 PT Problem 2 PT Problem #2 Pain PT Goal 1 Goal 1* pain rating at the worst of 3/10 2* self assessment Quick DASH rating of 8% limitation in activity level 3* pt report she is not taking any over the counter meds for shoulder pain Target Visit 8 PT Problem 3 PT Problem #3 Impaired Flexibility PT Goal 1 Goal increase R shoulder flexibility to improve ability for dressing 1* standing shoulder IR- reach behind back, fingers to bra strap 2* shoulder IR without pain increase Target Visit 8 PT Problem 4 PT Problem #4 Impaired Strength PT Goal 1 Goal increase strength of R shoulder to improve ability to use R UE for home and self care tasks 1* pt maintain good shoulder-scapular stability with exercises 2* prone overhead lift x 20 reps 3* push ups from knees x 10 reps Target Visit 8
--- NOTE | 2024-02-04 13:47 | PTOPEVAL1 ---
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 x ray reports changes in A-C joint. Self assessment with Quick DASH rating of 16% limitation in activity. 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 Medical history includes L shoulder surgery, pain/ tendonitis in both elbows. With the evaluation: shoulder flexion and abduction motions are WNL, most pain increase with abduction > IR motion; rounded shoulder posture and weakness of scapular musculature. Skilled PT services are indicated for modalities to decrease pain; therapeutic exercise to increase strength and flexibility over R shoulder- scapular complex and education for home exercises and posture correction. Plan of Care Interventions Electrical Stimulation,Hot Pack/Cold Pack,Manual Therapy,Neuro Re-education,Patient Education,Therapeutic Activities,Therapeutic Exercise,Ultrasound,Other Other Interventions GÉNESIS iqbal PT Services Indicated Yes Treatment Frequency and 1-2 x/wk for 8
--- NOTE | 2024-03-03 09:57 | PCPTNOTE ---
Patient was canceled 02/26/24 due to therapist out with illness.
--- NOTE | 2024-03-05 11:32 | PCPTNOTE ---
Pt. cancelled today and RS to Friday.
--- NOTE | 2024-03-09 13:21 | PTOPDC ---
Assessment and note entered by Earlene Gonzalez, PT, DPT Evaluation Information Assessment Status Discharge Diagnosis R shoulder pain ICD-10 Condition Codes (PT) M25.511 Onset September 2023 Subjective Information Pt states her shoulder is doing awesome, she states it feels almost perfect. She has not had any pain in a couple of weeks. She states it still gets sore and tired but this has improved. She states her pain/soreness is highest once she leaves therapy. Reported Pain Level Pain Score 0: Self Report Pain Score 0: Self Report Assessment PT Clinical Summary Pt presents to therapy today for her progress report following 6 visits of therapy. She reports improved pain, ROM, and function. She has met all of her therapy goals and no longer needs skilled therapy services. Educated to continue HEP upon discharge
== END 2024-03-09 14:19 | disposition home or self-care (01) ==
LOC: ANHGOSHPT 12:30
PROVIDERS: PCP Physician Assistant; Visit Provider Physician Assistant Surgical
DX: M25.511 Pain in right shoulder (principal)
CPT/HCPCS: 97110; 97112; 97140; 97161; 97530

== ENCOUNTER 2024-08-13 07:34 | Outpatient (CLI) | payer OTHER, SELFPAY ==
--- OUTSIDE RECORDS SUMMARY | 2024-08-13 07:38 | XMS_ITS | Clinical Summary ---
Author Organization [facility] [address] Address [address] [place] [id number] Care Team Providers Care Autocad Draftsman Name Role Phone Hiren Nuno Primary Care Provider Allergies No known active allergies Medications aspirin 81 mg enteric coated tablet Take 1 tablet (81 mg total) by mouth daily 4 Active montelukast (SINGULAIR) 10 mg tablet Take 1 tablet (10 mg total) by mouth daily 4 Active multivit with calcium,iron,min (MULTIPLE VITAMIN, WOMENS ORAL) Take by mouth Active calcium carbonate-vitamin D3 1,250 mg (500 mg elemental)-125 unit per tablet Take 1 tablet by mouth daily Active metoprolol XL (TOPROL-XL) 25 mg extended release tabletIndications:P aroxysmal atrial fibrillation (CMS/HCC) (HCC) Take 1 tablet (25 mg total) by mouth daily 90 tablet 3 4 Active atorvastatin (LIPITOR) 40 mg tabletIndications:H yperlipidemia, unspecified hyperlipidemia type Take 1 tablet (40 mg total) by mouth nightly at bedtime. 90 tablet 3 4 Active Active Problems Problem Noted Date Diagnosed Date Dizziness 01/30/2016 Overview (10/24/2016): Dizziness Surgical History Surgery Date Site/Laterality Comments SECTION 2002, 2006 Medical History Medical History Date Comments Hx Other Medical Hx Other Medical Bilateral foot surgery Anxiety 1988 Family History Medical History Relation Name Comments Diabetes Father Shaheed Diabetes mellit us; Heart disease Father Shaheed Heart disease; Kidney disease Father Shaheed Obesity Father Shaheed Sensorineural hearing loss Maternal Grandfather Sensorineural hearing loss; Sensorineural hearing loss Maternal Grandmother Sensorineural hearing loss; Alcohol abuse Mother Sherri Arthritis Mother Sherri Depression Mother Sherri Diabetes Mother Sherri Diabetes cory us; Stroke Mother Sherri Relation Name Status Comments Father Shaheed Maternal Grandfather Maternal Grandmother Mother Sherri Social History Tobacco Use Types Packs/Day Years Used Date Smoking Tobacco: Never Smokeless Tobacco: Never Alcohol Use Standard Drinks/Week Comments Yes 0 (1 standard drink = 0.6 oz pur e alcohol) Comments Unknown Sex and Gender Information Value Date Recorded Sex Assigned at Not on file Legal Sex 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 Gender Identity Female 03/30/2024 9:27 PM CDT Sexual Orientation Straight 03/30/2024 9: 27 PM CDT Obstetrics History Last Filed Vital Signs Vital Sign Reading Time Taken Comments Blood Pressure 116/66 01/08/2024 9:28 AM CDT Pulse 57 01/08/2024 9:28 AM CDT Temperature - - Respiratory Rate - - Oxygen Saturation 96% 01/08/2024 9:28 AM CDT Inhaled Oxygen Concentration - - Weight 123.8 kg (273 lb) 01/08/2024 9:28 AM CDT Height 175.3 cm (5' 9 ) 01/08/2024 9:28 AM CDT Body Mass Index 40.32 01/08/2024 9:28 AM CDT Plan of Treatment Health Maintenance Due Date Last Done Comments Breast Cancer Screening-Mammogram 1970 Cervical Cancer Screening 1970 Colon Cancer Screening-Colonoscopy 1970 Depression Screening 1970 Hepatitis C Screening 1970 DTaP/Tdap/Td Vaccine (1 - Tdap) 1982 Hepatitis B Screening 1989 Regular Well Visit/Exam 18-64 1989 Zoster Vaccine (2 of 2) 07/05/2022 05/10/2022 Covid-19 Vaccine ( - season) 2024 05/12/2023, 06/18/2022, 06/09/2021, Additional history exists Influenza Vaccine (#1) 2024 3, 06/18/2022, 05/02/2021, Additional history exists Pneumococcal vaccine <65 Aged Out No longer eligible based on patient's age to complete this topic Insurance * Guarantor: Romi Bradley Account Type Relation to Patient Date of Phone Billing Address Personal/Family Self [address] [place] [address] [facility] [employer] Member Subscriber Plan / Payer (Ef fective 2023-Present) Name:Romi Bradley Relation to Subscriber:Spouse Name:SILVERIO BRADLEY Date of :1967 Address: [address] [place] [address] Payer ID:[id number] Type:MANAGED CARE OTHER Address: [address] [place] [address] * Guarantor: Romi Bradley Account Type Relation to Patient Date of Phone Billing Address Personal/Family Self [address] [place] [address] [facility] [employer] Member Subscriber Plan / Payer ( fective 2023-Present) Name:Romi Bradley Relation to Subscriber:Spouse Name:SILVERIO BRADLEY Date of :1967 (Home) Address: [address] [place] [address] Payer ID:[id number] Type:MANAGED CARE OTHER Address: [address] [place] [address] * Guarantor: Romi Bradley Account Type Relation to Patient Date of Phone Billing Address Personal/Family Self 1970 [address] [place] [address] Care Teams Autocad Draftsman Relationship Specialty Start Date End Date Hiren Nuno PA [address] [facility] [address] [place] [address] PCP - General Physician Corporation Secretary 09/12/23
--- OUTSIDE RECORDS SUMMARY | 2024-08-13 07:38 | XMS_ITS | Referral Summary ---
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
--- OUTSIDE RECORDS SUMMARY | 2024-08-13 07:39 | XMS_ITS | Referral Summary ---
Author Organization [facility] Address [address] [place] [address] Care Team Providers Care Fractionating Still Operator Name Role Phone Ray Turner DO Primary Care Provider [phone] Source Comments [facility],non-owned Affiliates and Associated Physician Practices is amultiple site organization consisting of ambulatory clinics and hospital sitesin [place], [place], [place] and [place]. This disclosure is being madepursuant to the Care Everywhere program and may not contain all information available regarding this patient. Last updated 18.[facility] Allergies No known active allergies Medications * Be aware that medications may not be up to date on this document. Alwaysverify current medications with the patient. Medication Sig Dispensed Refills Start Date End Date Status Montelukast Sodium (SINGULAIR PO) Active Cetirizine HCl (ZYRTEC PO) Active Immunizations Name Administration Dates Next Due INFLUENZA VACCINE, QUADR. (F LUZONE; FLULAVAL; FLUARIX; AFLURIA QUADRIVALENT; 6MO+), 0.5 ML (IIV4) 05/02/2021 Social History Tobacco Use Types Packs/Day Years Used Date Smoking Tobacco: Never Smokeless Tobacco: Never Comments:parents smoked Sex and Gender Information Value Date Recorded Sex Assigned at Female 04/30/2021 6:33 PM CDT Gender Identity Female 04/30/2021 6:33 PM CDT Sexual Orientation Straight 04/30/2021 6: 33 PM CDT Last Filed Vital Signs Vital Sign Reading Time Taken Comments Blood Pressure 126/78 05/02/2021 12:27 PM CDT Pulse 76 05/02/2021 12:27 PM CDT Temperature 36.7 ??C (98.1 ??F) 05/02/2021 12:27 PM C DT Respiratory Rate 18 05/02/2021 12:27 PM CDT Oxygen Saturation 96% 05/02/2021 12:27 PM CDT Inhaled Oxygen Concentration - - Weight 117.5 kg (259 lb) 09/09/2018 10:54 AM YARD SWITCH OPERATOR Height 170.2 cm (5' 7 ) 09/09/2018 10:54 AM YARD SWITCH OPERATOR Body Mass Index 40.57 09/09/2018 10:54 AM YARD SWITCH OPERATOR Plan of Treatment Not on file Care Teams Fractionating Still Operator Relationship Specialty Start Date End Date Ray Turner DO PCP - General Internal Medicine 07/02/16
--- OUTSIDE RECORDS SUMMARY | 2024-08-13 07:39 | XMS_ITS | Clinical Summary ---
Author Organization [facility] [employer] Address [address] [place] [address] Care Team Providers Care Horse Buyer Name Role Phone Ray Turner DO Primary Care Provider [phone] Source Comments [facility] [employer],non-owned Affiliates and Associated Physician Practices is amultiple site organization consisting of ambulatory clinics and hospital sitesin [place], [place], [place] and [place]. This disclosure is being madepursuant to the Care Everywhere program and may not contain all information available regarding this patient. 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 Plan of Treatment Health Maintenance Due Date Last Done Comments COLOGUARD (AGES 45-75) - COL ON CA SCREENING 1971 COLON MONITORING 1971 COLONOSCOPY - COLON CA SCREENING 1971 CT COLONOGRAPHY - COLON CA SCREENING 1971 Colorectal Cancer Screening 1971 FIT - COLON CA SCREENING 1971 FLEX SIG - COLON CA SCREENING 1971 LIPID TESTING 1971 MAMMOGRAM 1971 PAP SMEAR 1971 HIV SCREENING 1986 HEPATITIS C SCREENING 12/31/1988 DTAP/TDAP/TD VACCINES (1 - Tdap) 1990 HEPATITIS B VACCINE (1 of 3 - 19+ 3-dose series) 1990 PNEUMOCOCCAL VACCINE 50+ (1 of 1 - PCV) 2021 ZOSTER VACCINE (1 of 2) 2021 COVID-19 VACCINE (3 - 2023-2 5 season) 2024 11/06/2020, 10/10/2020 INFLUENZA VACCINE (#1) 2024 , 05/05/2020 DEPRESSION SCREENING 07/14/2024 HIB VACCINE Aged Out No longer eligi ble based on patient's age to complete this topic HPV VACCINE Aged Out No longer eligi ble based on patient's age to complete this topic MENINGOCOCCAL (Group B) VACCINE Aged Out No longer eligible b ased on patient's age to complete this topic MENINGOCOCCAL VACCINE Aged Out No kip luz eligible based on patient's age to complete this topic PNEUMOCOCCAL VACCINE Aged Out No long er eligible based on patient's age to complete this topic Care Teams Horse Buyer Relationship Specialty Start Date End Date Ray Turner DO PCP - General Internal Medicine 07/02/16
--- OUTSIDE RECORDS SUMMARY | 2024-08-13 07:39 | XMS_ITS | Patient Health Summary ---
Author Organization [facility] Address [address] [place] [address] Care Team Providers Care Systems Software Developer Name Role Phone Ray Turner DO Primary Care Provider [phone] Note from [facility],non-owned Affiliates and Associated Physician Practices is amultiple site organization consisting of ambulatory clinics and hospital sitesin [place], [place], [place] and [place]. This disclosure is being madepursuant to the Care Everywhere program and may not contain all information available regarding this patient. Last updated 18.[facility] Allergies No known active allergies Medications * Be aware that medications may not be up to date on this document. Alwaysverify current medications with the patient. * Montelukast Sodium (SINGULAIR PO) * Cetirizine HCl (ZYRTEC PO) Immunizations * INFLUENZA VACCINE, QUADR. 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 Height 170.2 cm (5' 7 ) 09/09/2018 10:54 AM IT TECHNICAL SPECIALIST Body Mass Index 40.57 09/09/2018 10:54 AM IT TECHNICAL SPECIALIST Procedures * STREP A SCREEN - POINT OF CARE (AMB) STL(Performed 05/02/2021) Performed for Need for prophylactic vaccination and inoculation against influenza * INFLUENZA A+B - POINT OF CARE (AMB)(Performed 09/09/2018) Performed for Lower respiratory infection * STREP A SCREEN - POINT OF CARE (AMB) STL(Performed 09/09/2018) Performed for Lower respiratory infection * STREP A SCREEN - POINT OF CARE (AMB) STL(Performed 03/21/2018) Performed for Enlarged submental lymph node, Upper respiratory tract infection, unspecified type Results * STREP A SCREEN - POINT OF CARE (AMB) STL (05/02/2021 12:40 PM CDT) Only the most recent of3 resultswithin the time period is included. Strep A Rapid POCT Negative Negative [facility] Strep A Internal Control Present [facility] Lot # [id number] [facility] Expiration Date 11/10/21 [facility] Throat ENTIRE THROAT (SURFACE REGION OF NECK) / Unknown 05/02/2021 12:40 PM CDT Michelle Ekaterina Bharati PACE-FINANCIAL WRITER [facility] - POINT OF CA RE ORDERABLES [facility] [address] [place] [address], [facility] [phone] * INFLUENZA A+B - POINT OF CARE (AMB) (09/09/2018 11:05 AM IT TECHNICAL SPECIALIST) Influenza A Antigen Rapid Negative Negative Influenza B Antigen Rapid Negative Negative Influenza Internal Control present NEGATIVE - POSITIVE Influenza Lot Number [id number] Influenza Expiration Date 04 16 2020 Other NASOPHARYNGEAL SWAB / Unknown 09/09/2018 11:05 AM IT TECHNICAL SPECIALIST Randolph Moralez DRIVER TRAINER-FINANCIAL WRITER LAB - POINT OF CA RE ORDERABLES Care Teams Systems Software Developer Relationship Specialty Start Date End Date Ray Turner DO PCP - General Internal Medicine 07/02/16
[2024-08-13 07:56] LABS: Hematocrit 40.1 % (37.0-47.0); Hemoglobin 13.1 g/dL (12.0-15.0); Mean Corpuscular HGB Conc 32.7 g/dl (32-36); Mean Corpuscular Hemoglobin 28.1 pg (26-34); Mean Corpuscular Volume 86.1 fl (80-100); Mean Platelet Volume 9.7 fl (7.4-10.4); Platelet Count Result 216 k/mm3 (150-375); Red Blood Count 4.66 M/mm3 (4.2-5.4); Red Cell Distribution Width 14.1 % (11.5-14.5); White Blood Count 6.8 K/mm3 (4.5-10.0)
[2024-08-13 08:08] LABS: Hemoglobin A1C 5.8 % (<5.7)
[2024-08-13 08:16] LABS: Alanine Aminotransferase 39 U/L (6-35); Albumin Level 3.9 g/dL (3.5-5.1); Alkaline Phosphatase 74 U/L (38-126); Anion Gap 7 mmol/L (4-12); Aspartate Amino Transferase 29 U/L (14-36); Bilirubin,Total 0.6 mg/dL (0.2-1.3); Blood Urea Nitrogen 19 mg/dL (7-17); Calcium 9.1 mg/dL (8.4-10.2); Carbon Dioxide 29 mmol/L (22-30); Chloride 106 mmol/L (98-107); Cholesterol 145 mg/dL (0-200); Estimated Glomerular Filt Rate > 60; Glucose 95 mg/dL (65-110); HDL Direct 50 mg/dL; Potassium 4.4 mmol/L (3.4-5.0); Sodium 142 mmol/L (137-145); Triglycerides 141 mg/dL (<150)
[2024-08-13 08:27] LABS: LDL Cholesterol Direct 76 mg/dL
== END 2024-08-13 07:35 | disposition home or self-care (01) ==
LOC: ANHLAB 07:36
PROVIDERS: PCP Nurse Practitioner; Visit Provider Nurse Practitioner
DX: Z00.00 Encounter for general adult medical examination without abnormal findings (principal); E78.5 Hyperlipidemia, unspecified; E66.01 Morbid (severe) obesity due to excess calories; Z68.41 Body mass index [BMI] 40.0-44.9, adult; D64.9 Anemia, unspecified
CPT/HCPCS: 36415; 80053; 80061; 83036; 84443; 85027

== ENCOUNTER 2024-10-21 09:30 | Outpatient (CLI) | payer OTHER, SELFPAY ==
--- NOTE | ~2024-10-21 | MM_ITS ---
EXAMINATION: MM screening laura BI w cami HISTORY: Screening TECHNIQUE: Craniocaudal and mediolateral oblique 3-D tomosynthesis images were obtained and synthetic 2-D images were generated. CAD analysis was submitted and interpreted. COMPARISON: Comparison to multiple prior studies sequentially, with oldest reviewed study dated 09/2014. BREAST PARENCHYMAL COMPOSITION: Not dense: There are scattered areas of fibroglandular density. FINDINGS: There is no evidence of suspicious mass, calcification, or architectural distortion to sugg est malignancy in either breast. There has been no suspicious interval change. IMPRESSION: 1. No mammographic evidence of malignancy. 2. Recommend routine screening mammography in one year. BI-RADS Category 1: Negative Reviewed, dictated and finalized at location A.
--- OUTSIDE RECORDS SUMMARY | 2024-10-21 09:53 | XMS_ITS | Encounter Summary ---
Author Organization [facility] Address [address] [place] [id number] Care Team Providers Care Business Services Vice President Name Role Phone Hiren Nuno Primary Care Provider Encounter Details Date Type Department Care Team (Late st Contact Info) Description 10/01/2024 Results Follow-Up [facility] at [address] [place] [address] Niko Boswell MD [address] [address] Social History Tobacco Use Types Packs/Day Years Used Date Smoking Tobacco: Never Smokeless Tobacco: Never Alcohol Use Standard Drinks/Week Comments Yes 0 (1 standard drink = 0.6 oz pur e alcohol) Personal Safety Answer Date Recorded Have you ever been in or are you currently in a harmful physical or emotional relationship or is someone making you feel afraid or unsafe? 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
--- OUTSIDE RECORDS SUMMARY | 2024-10-21 09:53 | XMS_ITS | Clinical Summary ---
Author Organization [facility] [address] Address [address] [place] [id number] Care Team Providers Care Major Gifts Manager Name Role Phone Hiren Nuno Primary Care [...] mg extended release tabletIndications:P aroxysmal atrial fibrillation (HCC) Take 1 tablet (25 mg total) by mouth daily 90 tablet 3 4 Active atorvastatin (LIPITOR) 40 mg tabletIndications:H yperlipidemia, unspecified hyperlipidemia type Take 1 tablet (40 mg total) by mouth nightly at bedtime. 90 tablet 3 4 Active Active Problems Problem Noted Date Diagnosed Date Biatrial enlargement 09/02/2024 LVH (left ventricular hypertrophy) 09/02/2024 Hypersomnolence 09/02/2024 Hyperlipidemia LDL goal <100 09/02/2024 PAF (paroxysmal atrial fibrillation) 09/02/2024 Systolic ejection murmur 09/02/2024 Severe obesity 09/02/2024 Body mass index 40.0-44.9, adult (CMS/HCC) 09/02 Dizziness 01/30/2016 Overview (10/24/2016): Dizziness Encounters Date Type Department Care Team Description 10/01/2024 Telephone [facility] Cardiology [address] [facility] [address] [place] [address] Jonnie Sanchez MD 10/01/2024 Results Follow-Up [facility] Cardiology at [address] [place] [address] Jonnie Sanchez MD 09/30/2024 11:00 AM CDT Ancillary Procedure [facility] Cardiology at [address] [place] [phone] PAF (paroxysmal atrial fibrillation) (HCC); LVH (left ventricular hypertrophy); Biatrial enlargement; Systolic ejection murmur 09/20/2024 10:28 AM CDT - 09/20/2024 1:24 PM CDT Emergency [facility] Emergency Department [address] [place] [address] Adolph Palacios MD Atrial fibrillation with rapid ventricular response (HCC) (Primary Dx) Discharge Disposition: Discharge to home or self care 09/16/2024 Results Follow-Up [facility] Cardiology [address] [phone] Jonnie Sanchez MD Sleep apnea in adult (Primary Dx) 09/15/2024 8:00 AM 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 - 09/15/2024 11:59 PM [employer]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 Hospital Encounter [facility] [address] [place] [address] Hypersomnolence Discharge Disposition: Discharge to home or self care 09/02/2024 8:30 AM 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 Office Visit [facility] Cardiology [address] [facility] [address] [place] [phone] Jonnie Sanchez MD PAF (paroxysmal atrial fibrillation) (HCC) (Primary Dx); Hyperlipidemia LDL goal <100; Hypersomnolence; LVH (left ventricular hypertrophy); Biatrial enlargement; Systolic ejection murmur; Severe obesity (HCC); Body mass index 40.0-44.9, adult (CMS/HCC) (HCC) 09/02/2024 Orders Only [facility] Cardiology [address] [place] [address] Provider, MD Anjelica from Last 3 Months Surgical History Surgery Date Site/Laterality Comments SECTION 2002, 2006 Medical History Medical History Date Comments Hx Other Medical Hx Other Medical Bilateral foot surgery Anxiety 1988 Family History Medical History Relation Name Comments Diabetes Father Shaheed Diabetes mellit us; Heart disease Father Shahede Heart disease; Kidney disease Father Shaheed Obesity Father Shaheed Sensorineural hearing loss Maternal Grandfather Sensorineural hearing loss; Sensorineural hearing loss Maternal Grandmother Sensorineural hearing loss; Alcohol abuse Mother Sherri Arthritis Mother Sherri Depression Mother Sherri Diabetes Mother Sherri Diabetes mellit us; Stroke Mother Sherri Relation Name Status [...] on file Legal Sex Female 4:09 AM [employer] VE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 Gender Identity Female 03/30/2024 9:27 PM CDT Sexual Orientation Straight 03/30/2024 9: 27 PM CDT Obstetrics History Last Filed Vital Signs Vital Sign Reading Time Taken Comments Blood Pressure 125/95 09/20/2024 12:00 PM CDT Pulse 66 09/20/2024 12:00 PM CDT Temperature 36.4 C (97.6 F) 09/20/2024 10:34 AM CDT Respiratory Rate 16 09/20/2024 12:0 0 PM CDT Oxygen Saturation 97% 09/20/2024 12: 00 PM CDT Inhaled Oxygen Concentration - - Weight 128.8 kg (283 lb 15.2 oz) 2024 10:34 AM CDT Height 175.3 cm (5' 9.02 ) 09/20/2024 1 0:34 AM CDT Body Mass Index 41.91 09/20/2024 10:34 AM CDT Plan of Treatment Health Maintenance Due Date Last Done Comments Breast Cancer Screening-Mammogram 1971 Cervical Cancer Screening 1971 Colon Cancer Screening-Colonoscopy 1971 Depression Screening 1971 Hepatitis C Screening 1971 DTaP/Tdap/Td Vaccine (1 - Tdap) 1982 Hepatitis B Screening 1989 Regular Well Visit/Exam 18-64 1989 Pneumococcal vaccine <65 (1 of 2 - PCV) 1990 Zoster Vaccine (2 of 2) 07/05/2022 05/10/2022 Covid-19 Vaccine (6 - 2023-2 5 season) 2024 05/12/2023, 06/18/2022, 06/09/2021, Additional history exists Influenza Vaccine (Season Ended) 2025 05/12/2023, 06/18/2022, 05/02/2021, Additional history exists Procedures Procedure Name Priority Date/Time Associated Diagnosis Comments TRANSTHORACIC ECHO (TTE) COMPLETE W DOPPLER/CF WO CONTRAST Routine 09/30/2024 12:00 PM CDT PAF (paroxysmal atrial fibrillation) (HCC) LVH (left ventricular hypertrophy) Biatrial enlargement Systolic ejection murmur ECG 12-LEAD Routine 09/20/2024 1:52 PM CDT ED CRITICAL CARE Routine 09/20/2024 1:24 PM CDT TROPONIN I HIGH-SENSITIVITY 2-HOUR Timed 09/20/2024 12:49 PM CDT XR CHEST PA LATERAL 2 VIEWS ED 09/20/2024 12:30 PM CDT POCUS CARDIAC 09/20/2024 12:19 PM CDT ECG 12-LEAD STAT 09/20/2024 10:55 AM CDT URINALYSIS, MICROSCOPIC ONLY STAT 09/20/2024 10:52 AM CDT URINE CULTURE STAT 09/20/2024 10:52 AM CDT URINALYSIS AND REFLEX TO MICROSCOPIC AND CULTURE STAT 09/20/2024 10:52 AM CDT EGFR STAT 09/20/2024 10:51 AM CDT PRO B-TYPE NATRIURETIC PEPTIDE STAT 09/20/2024 10:51 AM CDT TROPONIN I HIGH-SENSITIVITY SERIES (BASELINE, 2HR, 4HR, 6HR) STAT 09/20/2024 10:51 AM CDT TSH STAT 09/20/2024 10:51 AM CDT BASIC METABOLIC PANEL STAT 09/20/2024 10:51 AM CDT PORTABLE/HOME SLEEP STUDY Routine 09/16/2024 Hypersomnolence LIPID PANEL Routine 08/13/2024 5:39 PM 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 from Last 3 Months Results * TRANSTHORACIC ECHO (TTE) COMPLETE W DOPPLER/CF WO CONTRAST (09/30/2024 12:00 PM CDT) LV EF 70-75 % CONS SCIMAGE Anatomical Region Laterality Modality Ultrasound 09/30/2024 11:1 2 AM CDT Narrative 09/30/2024 12:56 PM CDT [facility] [address], [address], [place] [address] P:[phone] P:[phone] Echocardiographic Report Patient Name: ROMI BRADLEY : 1970 Study Date: 09/30/2024 11:12:56 AM Gender: F Tech: Location: [facility] Ref Provider: JONNIE SANCHEZ Height(Cm): 175 BSA: 2.5 Weight(Kg): 128.4 Heart Rate: 69 BP: 125 / 95 Quality: Good Order Provider: JONNIE SANCHEZ PROCEDURES: Echocardiographic Report: Transthoracic echocardiogram with complete 2D, M-Mode, and color Doppler examination. With Strain Analysis. INDICATIONS: Left Ventricular Hypertrophy, Biatrial Enlargement, Systolic Ejection Murmur and I48.0 Paroxysmal atrial fibrillation. MEASUREMENTS: 2D/MM Value Range Doppler Value Range EF Mod BP 69 % [ 54 - 74 ] PRISCA Vmax 2.19 cm2 [ 2.00 - 4.00 ] EF Teich MM 74 % [ 54 - 74 ] AV Mean PG 25 mmHg Estimated EF 70-75 % AV Peak Maximiliano 3.61 m/s [ 1.00 - 1.70 ] LVIDd 2D 4.51 cm [ 3.80 - 5.20 ] AV Peak PG 52 mmHg LVIDd MM 4.38 cm [ 3.80 - 5.20 ] AV VTI 68.48 cm LVIDs 2D 2.38 cm [ 2.20 - 3.50 ] LVOT Diam 1.95 cm [ 1.70 - 2.10 ] LVIDs MM 2.51 cm [ 2.20 - 3.50 ] LVOT Peak Maximiliano 2.64 m/s [ 0.70 - 1.10 ] LVPWd 2D 1.31 cm [ 0.60 - 0.90 ] LVOT VTI 45.35 cm LVPWd MM 1.32 cm [ 0.60 - 0.90 ] MV E Peak Maximiliano 1.11 m/s [ 0.60 - 1.30 ] IVSd 2D 1.28 cm [ 0.60 - 0.90 ] MV A Peak Maximiliano 0.53 m/s [ 1.00 - 1.20 ] IVSd MM 1.47 cm [ 0.60 - 0.90 ] MV Decel Time 187 msec [ 104 - 258 ] LA Dimension MM 4.47 cm [ 2.70 - 3.80 ] PV Peak Maximiliano 0.99 m/s [ 0.40 - 0.80 ] AoR Diam MM 3.03 cm [ 2.70 - 3.70 ] TR Peak Maximiliano 2.35 m/s [ 1.00 - 2.80 ] LA Volume Index 32 cc/m2 [ 16 - 34 ] TR Peak PG 22 mmHg ACS MM 2.27 cm RVSP 30.00 mmHg [ 10.00 - 36.00 ] Lateral E` 0.06 m/s [ 0.10 - 0.15 ] E/E` 18 2D/MM Value Range Doppler Value Range - FINDINGS: Interpretation Site: Exam was interpreted at [facility]. Left Ventricle: Normal left ventricular systolic function. No focal wall motion abnormalities. Normal left ventricular size. Severe concentric left ventricular hypertrophy. Resting outflow tract gradient with Valsalva of up to 186 mmHG. There is pseudonormal diastolic dysfunction Grade II. Ejection fraction is measured at 69 %. Ejection Fraction is visually estimated to be 70-75 %. Global Longitudinal Strain is -11 %. GLS is abnormal. Right Ventricle: Normal right ventricular size. Normal right ventricular systolic function. Mild right ventricular hypertrophy. Left Atrium: There is mild enlargement of left atrium. Right Atrium: The right atrium is normal in size. Atrial Septum: Normal atrial septum. Mitral Valve: Mitral valve leaflets appear mildly thickened. Moderate mitral valve regurgitation. There is no hemodynamically significant mitral stenosis by Doppler. Mild systolic anterior motion of mitral valve. Aortic Valve: No evidence of hemodynamically significant aortic stenosis by Doppler. Aortic cusps appear mildly sclerotic. Trileaflet aortic valve. Trace aortic valve regurgitation. Tricuspid Valve: Normal appearance of the tricuspid valve. Normal right ventricular systolic pressure. Estimated peak RVSP is 30 mmHg. Mild tricuspid regurgitation. Pulmonic Valve: Normal appearance of the pulmonic valve. No pulmonic stenosis. Mild pulmonic regurgitation. Pericardium: Normal pericardium with no significant pericardial effusion. Aorta: Normal aortic root. IVC: Normal size and normal respiratory collapse consistent with normal right atrial pressure (<5 mmHg). CONCLUSIONS: Normal left ventricular systolic function. No focal wall motion abnormalities. Normal left ventricular size. Severe concentric left ventricular hypertrophy. Resting outflow tract gradient with Valsalva of up to 186 mmHG There is pseudonormal diastolic dysfunction Grade II. Ejection fraction is measured at 69 %. Ejection Fraction is visually estimated to be 70-75 %. Global Longitudinal Strain is -11 %. GLS is abnormal. Normal right ventricular size. Normal right ventricular systolic function. Mild right ventricular hypertrophy. There is mild enlargement of left atrium. Mitral valve leaflets appear mildly thickened. Moderate mitral valve regurgitation. Mild systolic anterior motion of mitral valve. Mild tricuspid regurgitation. Mild pulmonic regurgitation. Normal sinus rhythm. Electronically Signed By: Jonnie Sanchez MD 09/30/2024 12:56:00 PM CDT Procedure Note Jonnie Sanchez MD - 09/30/2024 [facility] [address] [facility], [address], [place] [address] [phone] P:[phone] Echocardiographic Report Patient Name: ROMI BRADLEY : 1970 Study Date: 09/30/2024 11:12:56 AM Gender: F Tech: Location: [facility] Ref Provider: JONNIE SANCHEZ Height(Cm): 175 BSA: 2.5 Weight(Kg): 128.4 Heart Rate: 69 BP: 125 / 95 Quality: Good Order Provider: JONNIE SANCHEZ PROCEDURES: Echocardiographic Report: Transthoracic echocardiogram with complete 2D, M-Mode, and color Dopplerexamination. With Strain Analysis. INDICATIONS: Left Ventricular Hypertrophy, Biatrial Enlargement, Systolic EjectionMurmur and I48.0 Paroxysmal atrial fibrillation. MEASUREMENTS: 2D/MM Value Range Doppler ValueRange EF Mod BP 69 % [ 54 - 74 ] PRISCA Vmax 2.19cm2 [ 2.00 - 4.00 ] EF Teich MM 74 % [ 54 - 74 ] AV Mean PG 25mmHg Estimated EF 70-75 % AV Peak Maximiliano 3.61m/s [ 1.00 - 1.70 ] LVIDd 2D 4.51 cm [ 3.80 - 5.20 ] AV Peak PG 52mmHg LVIDd MM 4.38 cm [ 3.80 - 5.20 ] AV VTI 68.48cm LVIDs 2D 2.38 cm [ 2.20 - 3.50 ] LVOT Diam 1.95 cm[ 1.70 - 2.10 ] LVIDs MM 2.51 cm [ 2.20 - 3.50 ] LVOT Peak Maximiliano 2.64m/s [ 0.70 - 1.10 ] LVPWd 2D 1.31 cm [ 0.60 - 0.90 ] LVOT VTI 45.35cm LVPWd MM 1.32 cm [ 0.60 - 0.90 ] MV E Peak Maximiliano 1.11m/s [ 0.60 - 1.30 ] IVSd 2D 1.28 cm [ 0.60 - 0.90 ] MV A Peak Maximiliano 0.53m/s [ 1.00 - 1.20 ] IVSd MM 1.47 cm [ 0.60 - 0.90 ] MV Decel Time 187msec [ 104 - 258 ] LA Dimension MM 4.47 cm [ 2.70 - 3.80 ] PV Peak Maximiliano 0.99m/s [ 0.40 - 0.80 ] AoR Diam MM 3.03 cm [ 2.70 - 3.70 ] TR Peak Maximiliano 2.35m/s [ 1.00 - 2.80 ] LA Volume Index 32 cc/m2 [ 16 - 34 ] TR Peak PG 22mmHg ACS MM 2.27 cm RVSP 30.00mmHg [ 10.00 - 36.00 ] Lateral E` 0.06 m/s [ 0.10 - 0.15 ] E/E` 18 2D/MM Value Range Doppler ValueRange - FINDINGS: Interpretation Site: Exam was interpreted at [facility]. Left Ventricle: Normal left ventricular systolic function. No focal wall motionabnormalities. Normal left ventricular size. Severe concentric left ventricular hypertrophy.Resting outflow tract gradient with Valsalva of up to 186 mmHG. There is pseudonormaldiastolic dysfunction Grade II. Ejection fraction is measured at 69 %. EjectionFraction is visually estimated to be 70-75 %. Global Longitudinal Strain is -11 %. GLSis abnormal. Right Ventricle: Normal right ventricular size. Normal right ventricular systolic function.Mild right ventricular hypertrophy. Left Atrium: There is mild enlargement of left atrium. Right Atrium: The right atrium is normal in size. Atrial Septum: Normal atrial septum. Mitral Valve: Mitral valve leaflets appear mildly thickened. Moderate mitral valveregurgitation. There is no hemodynamically significant mitral stenosis by Doppler. Mildsystolic anterior motion of mitral valve. Aortic Valve: No evidence of hemodynamically significant aortic stenosis by Doppler.Aortic cusps appear mildly sclerotic. Trileaflet aortic valve. Trace aortic valveregurgitation. Tricuspid Valve: Normal appearance of the tricuspid valve. Normal right ventricularsystolic pressure. Estimated peak RVSP is 30 mmHg. Mild tricuspid regurgitation. Pulmonic Valve: Normal appearance of the pulmonic valve. No pulmonic stenosis. Mildpulmonic regurgitation. Pericardium: Normal pericardium with no significant pericardial effusion. Aorta: Normal aortic root. IVC: Normal size and normal respiratory collapse consistent with normal rightatrial pressure (<5 mmHg). CONCLUSIONS: Normal left ventricular systolic function. No focal wall motionabnormalities. Normal left ventricular size. Severe concentric left ventricular hypertrophy.Resting outflow tract gradient with Valsalva of up to 186 mmHG There is pseudonormaldiastolic dysfunction Grade II. Ejection fraction is measured at 69 %. EjectionFraction is visually estimated to be 70-75 %. Global Longitudinal Strain is -11 %. GLSis abnormal. Normal right ventricular size. Normal right ventricular systolic function.Mild right ventricular hypertrophy. There is mild enlargement of left atrium. Mitral valve leaflets appear mildly thickened. Moderate mitral valveregurgitation. Mild systolic anterior motion of mitral valve. Mild tricuspid regurgitation. Mild pulmonic regurgitation. Normal sinus rhythm. Electronically Signed By: Jonnie Sanchez MD 09/30/2024 12:56:00 PM CDT us Jonnie Sanchez MD CV ECHO PROCEDURES Final Result * ECG 12-LEAD (09/20/2024 1:52 PM CDT) Narrative [facility] - 09/20/2024 1:52 PM CDT Adolph Palacios MD 09/20/2024 1:53 PM ECG 12 lead Date/Time: 09/20/2024 1:52 PM Performed by: Adolph Palacios MD Authorized by: Lanre Shafer MD Rate: ECG rate: 63 ECG rate assessment: normal Rhythm: Rhythm: sinus rhythm Ectopy: Ectopy: none QRS: QRS axis: Normal QRS intervals: Normal Conduction: Conduction: normal ST segments: ST segments: Normal T waves: T waves: inverted Inverted: AVL and I Other findings: Other findings: LVH with strain Previous ECG: Previous ECG: Compared to current Date of previous EC09/20/2024 Comparison ECG info: Spont conversion from atrial fib with REVR to noraml sinus rhythm. Similarity: Changes noted Interpretation: Interpretation: No acute injury pattern Recommended Follow-up: Recommended follow up: cardiac workup Procedure Note Adolph Palacios MD - 09/20/2024 1:24 PM CDT Procedure ECG 12 lead Date/Time: 09/20/2024 1:52 PM Performed by: Adolph Palacios MD Authorized by: Lanre Shafer MD Rate: ECG rate: 63 ECG rate assessment: normal Rhythm: Rhythm: sinus rhythm Ectopy: Ectopy: none QRS: QRS axis: Normal QRS intervals: Normal Conduction: Conduction: normal ST segments: ST segments: Normal T waves: T waves: inverted Inverted: AVL and I Other findings: Other findings: LVH with strain Previous ECG: Previous ECG: Compared to current Date of previous EC09/20/2024 Comparison ECG info: Spont conversion from atrial fib with REVR tonoraml sinus rhythm. Similarity: Changes noted Interpretation: Interpretation: No acute injury pattern Recommended Follow-up: Recommended follow up: cardiac workup Adolph Palacios MD 09/20/24 1353 us Lanre Shafer MD ECG ORDERABLES Final Re sult [facility] * Critical Care (09/20/2024 1:24 PM CDT) Narrative Adolph Palacios MD - 09/20/2024 1:24 PM CDT Aodlph Palacios MD 09/20/2024 6:30 PM Critical Care Performed by: Adolph Palacios MD Authorized by: Adolph Palacios MD Critical care provider statement: As reflected in the history, physical exam, orders, notes, and/or MDM, I was personally present while the patient was critically ill and provided critical care services for 25 minutes, excluding time involved in separately billable procedures. Critical care was necessary to treat or prevent imminent or life-threatening deterioration of the following condition(s): unstable vital signs atrial fibrillation Critical care was time spent by me providing the following: continuous telemetry, serial bedside patient exams, interpretation of bedside monitors, imaging, and arterial/venous lab draws, continuous pulse oximetry and serial laboratory checks initiation of rate controlling agent I provided emergent necessary critical care medicine services to this patient. I ordered and reviewed test results and/or imaging studies. I spent time discussing the management and therapeutic options for this critically ill patient with the patient themselves or with the appropriate designated surrogate decision-maker. I spent time documenting in the medical record. us Adolph Palacios MD IN CLINIC/BEDSIDE ORDERA BLES Final Result * Troponin I high-sensitivity 2-hour (09/20/2024 12:49 PM CDT) Trop I hs 11 <=17 ng/L Comment: Interpretive Data For further hscTnI resources including the diagnostic algorithm and an aid in interpretation, copy and paste this link: https://bjhlab.testcatalog.org/show/hsTrop-1 Current Interpretive Data last revised 2020. Trop I hs delta 3 ng/L [facility] Trop I hs interp Insignificant [facility] Blood 09/20/2024 12:4 9 PM CDT 09/20/2024 1:21 PM CDT us Adolph Palacios MD LAB BLOOD ORDERABLES Fin al Result [facility] Department [place] [address] * XR Chest Pa Lateral 2 Vw (09/20/2024 12:30 PM CDT) Anatomical Region Laterality Modality Body, Chest N/A Computed Radiogr aphy 09/20/2024 12:3 2 PM CDT Impressions 09/20/2024 12:32 PM CDT No priors for comparison. No focal consolidation effusion or pneumothorax. Cardiomediastinal silhouette is normal. Electronically signed by: Angel Sheehan M.D. Narrative 09/20/2024 12:32 PM CDT EXAMINATION: 2 view chest radiograph Procedure Note Angel Sheehan MD PhD - 09/20/2024 EXAMINATION: 2 view chest radiograph IMPRESSION: No priors for comparison. No focal consolidation effusion or pneumothorax. Cardiomediastinal silhouette is normal. Electronically signed by: Angel Sheehan M.D. Adolph Palacios MD IMG XR PROCEDURES Final Result * POCUS Cardiac (09/20/2024 12:19 PM CDT) Anatomical Region Laterality Modality Other 09/20/2024 11:5 7 AM CDT Narrative 09/20/2024 2:01 PM CDT Performed by: Suzie Qureshi Cardiac: Exam type: Diagnostic Exam Information: Indication(s) for Exam: Tachycardia or arrhythmia Findings : Pericardial effusion: Absent Left ventricle: Normal EF Right ventricle: Normal IVC: Normal IVC respiratory variation: High collapsibility (>50%) Interpretation: Normal LVEF Electronically signed by Suzie Qureshi on Friday, September 20, 2024 at 12:30 PM I have reviewed the images & the resident's interpretation. I agree with the findings. Electronically signed by Radha Lainez on Friday, September 20, 2024 at 2:01 PM I have reviewed the images & the resident's interpretation. I agree with the findings. Procedure Note Radha Lainez MD - 09/20/2024 Performed by: Suzie Qureshi Cardiac: Exam type: Diagnostic Exam Information: Indication(s) for Exam: Tachycardia or arrhythmia Findings : Pericardial effusion: Absent Left ventricle: Normal EF Right ventricle: Normal IVC: Normal IVC respiratory variation: High collapsibility (>50%) Interpretation: Normal LVEF Electronically signed by Suzie Qureshi on Friday, September 20, 2024 at 12:30PM I have reviewed the images & the resident's interpretation. I agree withthe findings. Electronically signed by Radha Lainez on Friday, September 20, 2024 at 2:01PM I have reviewed the images & the resident's interpretation. I agree withthe findings. us Radha Lainez MD POCUS ORDERABLES Final Resu lt * (ABNORMAL) ECG 12-LEAD (09/20/2024 10:55 AM CDT) Narrative [facility] - 09/20/2024 10:55 AM CDT Adolph Palacios MD 09/20/2024 11:03 AM ECG 12 lead Date/Time: 09/20/2024 10:55 AM Performed by: Adolph Palacios MD Authorized by: Adolph Palacios MD Rate: ECG rate: 145 ECG rate assessment: tachycardic Rhythm: Rhythm: atrial fibrillation Ectopy: Ectopy: none QRS: QRS axis: Normal QRS intervals: Normal Conduction: Conduction: normal ST segments: ST segments: Abnormal Elevation: V1, V2 and aVR Depression: I, aVL, V5 and V6 T waves: T waves: inverted Inverted: I and aVL Other findings: Other findings: prolonged qTc interval Previous ECG: Previous ECG: Unavailable Interpretation: Interpretation: abnormal Recommended Follow-up: Recommended follow up: cardiac workup and further workup in the ED Procedure Note Adolph Palacios MD - 09/20/2024 10:55 AM CDT Procedure ECG 12 lead Date/Time: 09/20/2024 10:55 AM Performed by: Adolph Palacios MD Authorized by: Adolph Palacios MD Rate: ECG rate: 145 ECG rate assessment: tachycardic Rhythm: Rhythm: atrial fibrillation Ectopy: Ectopy: none QRS: QRS axis: Normal QRS intervals: Normal Conduction: Conduction: normal ST segments: ST segments: Abnormal Elevation: V1, V2 and aVR Depression: I, aVL, V5 and V6 T waves: T waves: inverted Inverted: I and aVL Other findings: Other findings: prolonged qTc interval Previous ECG: Previous ECG: Unavailable Interpretation: Interpretation: abnormal Recommended Follow-up: Recommended follow up: cardiac workup and further workup in the ED Adolph Palacios MD 09/20/24 1100 Adolph Palacios MD 09/20/24 1103 Adolph Palacios MD ECG ORDERABLES Edited R esult - Final [facility] * (ABNORMAL) Urinalysis reflex to microscopic and culture Urine (09/20/2024 10:52 AM CDT) Color, ur Yellow Yellow Clarity, ur Turbid(A) Clear [facility] Specific gravity, ur 1.011 1.003 - 1.030 [facility] pH, urine 6.0 [facility] Comment: Interpretive Data U rine pH is affected by diet, medications, systemic acid-base disturbances, and renal tubular function. pH may affect urinary stone formation. For example, urine pH below 6.0 may help reduce the tendency for calcium phosphate stones and pH greater than 6.0 may reduce the tendency for uric acid stone formation. Source: [facility] Current Interpretive Data was last revised on 2017 Protein, ur ql Trace Negative [facility] Glucose, ur ql Negative Negative [facility] Ketones, ur Negative Negative [facility] Bilirubin, ur Negative Negative [facility] Blood, ur Negative Negative [facility] Urobilinogen, ur <2.0 <2.0 mg/dL [facility] Nitrite, ur Negative Negative [facility] Leukocyte esterase, ur 3+(A) Negative [facility] UA reflex comment Reflex to microscopic UA will be performed. [facility] Urine 09/20/2024 10:5 2 AM CDT 09/20/2024 11:03 AM CDT Adolph Palacios MD LAB MICROBIOLOGY - GENER AL ORDERABLES Final Result [facility] [place] [address] * (ABNORMAL) Urinalysis, microscopic only (09/20/2024 10:52 AM CDT) Pathologist [facility] WBC, ur 11-20(A) 0 - 5 /HPF RBC, ur 0-2 0 - 2 /HPF [facility] Epithelial cells, squamous, ur 21-50(A) 0 - 5 /HPF [facility] Comment:Suggestive of contam ination. Consider recollection by clean catch. Bacteria, ur 3+(A) [facility] Culture Reflex Comment Reflex to urine culture will be performed. [facility] Urine 09/20/2024 10:5 2 AM CDT 09/20/2024 11:03 AM CDT Adolph Palacios MD LAB URINE ORDERABLES Fin al Result Performing Organization Address City/[facility] Co de Phone Number [facility] [place] [address] * Urine culture Urine (09/20/2024 10:52 AM CDT) Pathologist [facility] Report Final Report: Less than 100,000 colonies/mL (clinically insignificant growth based on current clinical standards) Organism (CLINICALLY INSIGNIFICANT GROWTH [facility] Urine 09/20/2024 10:5 2 AM CDT 09/20/2024 12:51 PM CDT Narrative [facility] - 09/21/2024 3:42 PM CDT Urine culture reflexed based upon urinalysis results. Testing performed by [facility] ([phone]) Adolph Palacios MD LAB MICROBIOLOGY - GENER AL ORDERABLES Final Result Performing Organization Address City/[facility]/ZIP Co de Phone Number [facility] [place] [address] * Troponin I high-sensitivity series (baseline, 2hr, 4hr, 6hr) (09/20/2024 10:51 AM CDT) Trop I hs 8 <=17 ng/L Comment: Interpretive Data For further hscTnI resources including the diagnostic algorithm and an aid in interpretation, copy and paste this link: https://bjhlab.testcatalog.org/show/[email or web address] Current Interpretive Data last revised 2020. Blood 09/20/2024 10:5 1 AM CDT 09/20/2024 11:08 AM CDT us Adolph Palacios MD LAB BLOOD ORDERABLES Fin al Result Performing Organization Address City/[facility]/ZIP Co de Phone Number [facility] [place] [address] * eGFR (09/20/2024 10:51 AM CDT) eGFR >90 >=60 mL/min/1. 73 m2 Comment: Interpretive Data Reference Interval Normal >/= 90 mL/min/1.73m2 Mildly decreased* 60 - 89 mL/min/1.73m2 Mildly to moderately decreased 45 - 59 mL/min/1.73m2 Moderately to severely decreased 30 - 44 mL/min/1.73m2 Severely decreased 15 - 29 mL/min/1.73m2 Kidney Failure < 15 mL/min/1.73m2 *Relative to young adult level Estimated glomerular filtration rate is determined by the 2020 CKD-EPI equation recommended by the National Kidney Foundation (A Unifying Approach to GFR Estimation: Recommendations of the NKF-ASK Task Force on Reassessing the Inclusion of Race in Diagnosing Kidney Disease, JASN 2020). The CKD-EPI equation should not be used for patients with unstable renal function and has not been validated in children and those over 70. Current interpretive data was last reviewed 2021. Blood 09/20/2024 10:5 1 AM CDT 09/20/2024 11:08 AM CDT us Lanre Shafer MD LAB BLOOD ORDERABLES Fin al Result [facility] [place] [address] * (ABNORMAL) Pro B-type natriuretic peptide (09/20/2024 10:51 AM CDT) NT-proBNP 2,537(H) <=300 pg/mL Comment: Interpretive Comments: A. Dyspnea in Acute Care Setting All Ages: < 300 pg/ml, acute heart failure unlikely. < 50 yrs: 300 - 450 pg/ml, further investigation warranted. > 450 pg/ml, acute heart failure likely. 50 - 74 yrs: 300 - 900 pg/ml, further investigation warranted. > 900 pg/ml, acute heart failure likely . > or = 75 yrs: 450 - 1800 pg/ml, further investigation warranted. > 1800 pg/ml, acute heart failure likely. B. Non-acute Setting < 75 yrs < 125 pg/ml, rules out heart failure. > or = 125 pg/ml, further investigation warranted. > or = 75 yrs < 450 pg/ml, rules out heart failure. > or = 450 pg/ml, further investigation warranted. - Knowledge of each individual patient's NT-proBNP range may be more useful than using similar cut-points for every patient. Please note that marked elevations in NT-proBNP levels may be observed in state other than Left Ventricular Congestive Failure, including: acute coronary syndromes, right heart strain/failure (including pulmonary embolism and cor pulmonale), critical illness, renal failure, as well as advanced age. - References: 1. Lilian STEPHENSON et.al. Eur Heart J. 2006:27:330-337. 2. Justina RW, Augusto AM. J. AM Guerita Cardiol: Cardiovasc Imag. 2009;2: 216- 225. Interpretive Data Last Revised Date: 2018. Blood 09/20/2024 10:5 1 AM CDT 09/20/2024 11:08 AM CDT us Adolph Palacios MD LAB BLOOD ORDERABLES Fin al Result [facility] [place] [address] * TSH (09/20/2024 10:51 AM CDT) Pathologist [facility] Thyroid Stimulating Hormone 2.48 0.30 - 4.20 mcIUnit/mL Blood 09/20/2024 10:5 1 AM CDT 09/20/2024 11:08 AM CDT Lanre Shafer MD LAB BLOOD ORDERABLES Fin al Result Performing Organization Address City/[facility] de Phone Number [facility] [place] [address] * Basic metabolic panel (09/20/2024 10:51 AM CDT) [facility] Sodium 141 135 - 145 mmol/L Potassium, pl 3.9 3.3 - 4.9 mmol/L [facility] Chloride 107 97 - 110 mmol/L [facility] CO2 25 22 - 32 mmol/L [facility] Anion gap 9 2 - 15 mmol/L [facility] BUN 19 6 - 25 mg/dL [facility] Creatinine 0.71 0.60 - 1.10 mg/dL [facility] Glucose 126 70 - 199 mg/dL [facility] Comment: Interpretive Data Fasting glucose >/= 126 mg/dl is diagnostic for diabetes. Fasting is defined as no caloric intake for at least 8 hours. Fasting glucose between 100 mg/dl to 125 mg/dl is diagnostic of prediabetes. In a patient with classic symptoms of hyperglycemia or hyperglycemic crisis, a random glucose >/= 200 mg/dl is diagnostic for diabetes. In the absence of unequivocal hyperglycemia, results should be confirmed by repeat testing. The classification and Diagnosis of Diabetes Diabetes Care 202; 46: S19-S40. Current interpretive data was last revised 2022. Calcium 8.8 8.5 - 10.3 mg/dL [facility] Blood 09/20/2024 10:5 1 AM CDT 09/20/2024 11:08 AM CDT Lanre Shafer MD LAB BLOOD ORDERABLES Fin al Result Performing Organization Address [facility] Co de Phone Number [facility] [place] [address] * Portable/Home Sleep Study (09/16/2024) Shannan Juan MD - 09/16/2024 HOME SLEEP APNEA TEST HISTORY: Romi Bradley is a 54 y.o. female who presents for Home sleep apnea test. (HSAT). Reason for sleep study: Snoring, atrial fibrillation [place] Sleepiness Score: 14 Weight: 284 lbs BMI: 41.94 PROCEDURE: This is a single night diagnostic study. This Home Sleep apnea Test (HSAT) utilized an unattended FDA approved [employer] apnea link home air portable monitoring device investigating for obstructive sleep apnea. The patient was provided instructions of the device and application by the registered creative technologist at the [facility]. This test was performed without a electrical design technologist in attendance. In this study, the following parameters were monitored: Emerald-nasal airflow, snoring, chest respiratory effort, abdominal respiratory effort, body position, movement, oxygen saturation, and heart rate. Respiratory events are scored according to the criteria from The [place] [employer] (AASM) Manual for the scoring of sleep and associated events - version 2.6. FINDINGS: The recorded bed time starts at 10:36 pm. The total recording duration is 7:30 hours. The respiratory events (RE) included 17 apneas and 24 hypopneas. The total Respiratory event index (KRISHNA) was 5.6 per hour. Obstructive apnea index was 0.4, central apnea index was 0.0, mixed apnea index was 0.0. Lowest SpO2 was 80 % and time spent < 88% was 0:08 hours. Oxygen desaturation index was 5.7. Patient spent 2:11 hours in supine and 4:59 hours in non-supine position. Average heart rate was 74/min, minimum heart rate was 62/min, and maximum heart rate was 97/min. INTERPRETATION: This is an adequate quality Home Sleep apnea Test. (HSAT) 1. This home sleep apnea test is positive for mild obstructive sleep apnea with Respiratory Event Index (equivalent of Apnea Hypopnea Index) of 5.6 per hour. RECOMMENDATIONS: 1. Based on the findings of this home sleep test, the patient has mild obstructive sleep apnea. Given the comorbid conditions including atrial fibrillation and hypersomnolence, patient will benefit from treatment of mild obstructive sleep apnea. Treatment with Positive Airway Pressure (PAP) devices such as continuous PAP (CPAP), auto- adjusting PAP (APAP), and bi-level PAP (Bi-PAP) is recommended. Consider CPAP titration study to determine the optimal pressure required to alleviate sleep disordered breathing. 2. Other treatment options include ENT evaluation for upper airway abnormalities, or mandibular advancement device. 3. Obesity, hypothyroidism or obstructive/structural abnormalities in the upper airway can be contributory to obstructive sleep apnea/hypopnea. An evaluation and management of these factors should be considered. 4. Hypnotics and sedatives can worsen the sleep apnea, hence should be avoided. 5. Patients with sleep apnea may have excessive daytime sleepiness. Patients should avoid driving, if drowsy or sleepy. 6. Weight loss for ideal body weight range is recommended. Limitations of the study: 1. A sleep EEG was not recorded; therefore, the actual amount of time spent in sleep, stages of sleep and respiratory events associated with arousals cannot be determined by this study. 2. All indexes are computed against monitoring time, not total sleep time. For this reason, the degree of severity may be underestimated * Please note: The severity of the sleep apnea may vary from night to night depending on body position during sleep, REM sleep and sleep efficiency. These factors should be taken into consideration. Shannan Nickerson MD [facility] Sleep [facility] Narrative Shannan Nickerson MD - 09/16/2024 Ocst is ready for review Jonnie Sanchez MD SLEEP CENTER ORDERABLES F inal Result * Lipid panel (08/13/2024 5:39 PM MOTOR VEHIC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) SCRIBED Cholesterol, Total 145 <200 EXTERNAL LAB SCRIBED HDL 50 >40 EXTERNAL LAB SCRIBED LDL 76 <100 EXTERNAL LAB SCRIBED Triglycerides 141 <150 EXTERNAL LAB Blood Historical Provider LAB BLOOD ORDERABLES Edit ed Result - Final EXTERNAL LAB from Last 3 Months Insurance [facility] [employer] Member Subscriber Plan / Payer ( fective 2023-Present) Name:Romi Bradley Relation to Subscriber:Spouse Name:SILVERIO BRADLEY Date of :1967 Address: [address] [place] [address] Payer ID:[id number] Type:MANAGED CARE OTHER Address: [address] [place] [address] * Guarantor: Romi Bradley Account Type Relation to Patient Date of Phone Billing Address Personal/Family Self [address] [place] [address] [facility] [employer] Member Subscriber Plan / Payer ( fective 2023-Present) Name:Romi Bradley Relation to Subscriber:Spouse Name:SILVERIO BRADLEY Date of :1967 (Home) Address: [address] [place] [address] Payer ID:[id number] Type:MANAGED CARE OTHER Address: [address] [place] [address] Care Teams Major Gifts Manager Relationship Specialty Start Date End Date Hiren Nuno PA [address] [place], [place] [id number] PCP - General Physician Regional Merchandising Manager 09/12/23
--- OUTSIDE RECORDS SUMMARY | 2024-10-21 09:53 | XMS_ITS | Referral Summary ---
Author Organization [facility] Address [address] [place] [phone] Care Team Providers Care Insulation Extruder Operator Name Role Phone Hiren Nuno Primary Care Provider Encounters Date Type Department Care Team Description 10/01/2024 Telephone [facility] [address] [facility] [facility] [address] [place] [phone] Jonnie Sanchez MD 10/01/2024 Results Follow-Up [facility] Cardiology at [address] [place] [address] Jonnie Sanchez MD 09/30/2024 11:00 AM CDT Ancillary Procedure [facility] Cardiology at [address] [place] [address] PAF (paroxysmal atrial fibrillation) (HCC); LVH (left ventricular hypertrophy); Biatrial enlargement; Systolic ejection murmur 09/20/2024 10:28 AM CDT - 09/20/2024 1:24 PM CDT Emergency [facility] Emergency Department [address] [place] [phone] Adolph Palacios MD Atrial fibrillation with rapid ventricular response (HCC) (Primary Dx) Discharge Disposition: Discharge to home or self care 09/16/2024 Results Follow-Up [facility] Cardiology [address] [facility] [address] [place] [phone] Jonnie Sanchez MD Sleep apnea in adult (Primary Dx) 09/15/2024 8:00 AM GLASS GRINDER - 09/15/2024 11:59 PM GLASS GRINDER Hospital Encounter [facility] [address] [place] [address] Hypersomnolence Discharge Disposition: Discharge to home or self care 09/02/2024 Orders Only [facility] [address] [place] [address] ProviderAnjelica MD 09/02/2024 8:30 AM GLASS GRINDER Office Visit [facility] Cardiology [address] [place] [phone] Jonnie Sanchze MD PAF (paroxysmal atrial fibrillation) (HCC) (Primary Dx); Hyperlipidemia LDL goal <100; Hypersomnolence; LVH (left ventricular hypertrophy); Biatrial enlargement; Systolic ejection murmur; Severe obesity (HCC); Body mass index 40.0-44.9, adult (CMS/HCC) (HCC) from Last 3 Months Allergies No known active allergies Medications aspirin [...] (CMS/HCC) 09/02 Dizziness 01/30/2016 Overview (10/24/2016): Dizziness Social History [...] on file Legal Sex Female 4:09 AM GLASS GRINDER Gender Identity Female 03/30/2024 9:27 PM CDT [...] 09/20/2024 10:34 AM CDT Plan of Treatment Not on file Procedures Procedure Name Priority Date/Time Associated Diagnosis [...] Hypersomnolence LIPID PANEL Routine 08/13/2024 5:39 PM GLASS GRINDER from Last 3 Months Results * TRANSTHORACIC ECHO (TTE) COMPLETE W DOPPLER/CF WO CONTRAST (09/30/2024 12:00 PM CDT) LV EF 70-75 % CONS SCIMAGE Anatomical Region Laterality Modality Ultrasound 09/30/2024 11:1 2 AM CDT Narrative 09/30/2024 12:56 PM CDT [facility] Cardiology [address] , [address], [place] [address] P:[phone] P:[phone] Echocardiographic Report Patient Name: ROMI BRADLEY : [...] FINDINGS: Interpretation Site: Exam was interpreted at [facility]. Left Ventricle: Normal left ventricular systolic [...] Procedure Note Jonnie Sanchez MD - 09/30/2024 [facility] Cardiology [address] [facility], [address], [place] [address] P:[phone] P:[phone] Echocardiographic Report Patient Name: ROMI BRADLEY : [...] FINDINGS: Interpretation Site: Exam was interpreted at [facility]. Left Ventricle: Normal left ventricular systolic [...] Jonnie Sanchez MD 09/30/2024 12:56:00 PM CDT Jonnie Sanchez MD CV ECHO PROCEDURES Final [...] Shafer MD ECG ORDERABLES Final Re sult [facility] * Critical Care (09/20/2024 1:24 PM CDT) Narrative Adolph Palacios MD - 09/20/2024 1:24 PM CDT Adolph Palacios MD 09/20/2024 6:30 PM Critical Care [...] spent time documenting in the medical record. Adolph Palacios MD IN CLINIC/BEDSIDE ORDERA BLES Final Result * Troponin I high-sensitivity 2-hour (09/20/2024 12:49 PM CDT) Trop I hs 11 <=17 ng/L Comment: Interpretive Data For further hscTnI resources including the diagnostic algorithm and an aid in interpretation, copy and paste this link: https://bjhlab.testcatalog.org/show/hsTrop-1 Current Interpretive Data last revised 2020. Trop I hs delta 3 ng/L [facility] Trop I hs interp Insignificant [facility] Blood 09/20/2024 12:4 9 PM CDT 09/20/2024 1:21 PM CDT Adolph Palacios MD LAB BLOOD ORDERABLES Fin al Result [facility] [address] [facility] [place] [address] * XR Chest Pa Lateral 2 Vw [...] 12-LEAD (09/20/2024 10:55 AM CDT) Narrative [facility] - 09/20/2024 10:55 AM CDT Adolph Palacios MD 09/20/2024 11:03 AM ECG 12 lead Date/Time: 09/20/2024 10:55 AM Performed by: Adolph Palacios MD Authorized by: Adolph Palcaios MD Rate: ECG rate: 145 ECG rate [...] ECG ORDERABLES Edited R esult - Final [facility] * (ABNORMAL) Urinalysis reflex to microscopic and culture Urine (09/20/2024 10:52 AM CDT) Color, ur Yellow Yellow Clarity, ur Turbid(A) Clear [facility] Specific gravity, ur 1.011 1.003 - 1.030 [facility] pH, urine 6.0 [facility] Comment: Interpretive Data U rine pH is affected by diet, medications, systemic acid-base disturbances, and renal tubular function. pH may affect urinary stone formation. For example, urine pH below 6.0 may help reduce the tendency for calcium phosphate stones and pH greater than 6.0 may reduce the tendency for uric acid stone formation. Source: [employer] Current Interpretive Data was last revised on 2017 Protein, ur ql Trace Negative [facility] Glucose, ur ql Negative Negative [facility] Ketones, ur Negative Negative [facility] Bilirubin, ur Negative Negative [facility] Blood, ur Negative Negative [facility] Urobilinogen, ur <2.0 <2.0 mg/dL [facility] Nitrite, ur Negative Negative [facility] Leukocyte esterase, ur 3+(A) Negative [facility] UA reflex comment Reflex to microscopic UA will be performed. [facility] Urine 09/20/2024 10:5 2 AM CDT 09/20/2024 11:03 AM CDT Adolph Palacios MD LAB MICROBIOLOGY - GENER AL ORDERABLES Final Result Performing Organization Address [facility] de Phone Number [facility] [place] [address] * (ABNORMAL) Urinalysis, microscopic only (09/20/2024 10:52 AM CDT) WBC, ur 11-20(A) 0 - 5 /HPF RBC, ur 0-2 0 - 2 /HPF [facility] Epithelial cells, squamous, ur 21-50(A) 0 - 5 /HPF [facility] Comment:Suggestive of contam ination. Consider recollection by clean catch. Bacteria, ur 3+(A) [facility] Culture Reflex Comment Reflex to urine culture will be performed. [facility] Urine 09/20/2024 10:5 2 AM CDT 09/20/2024 11:03 AM CDT Adolph Palacios MD LAB URINE ORDERABLES Fin al Result Performing Organization Address [facility] de Phone Number [facility] [place] [address] * Urine culture Urine (09/20/2024 10:52 AM CDT) Report Final Report: Less than 100,000 colonies/mL (clinically insignificant growth based on current clinical standards) Organism (CLINICALLY INSIGNIFICANT GROWTH [facility] Urine 09/20/2024 10:5 2 AM CDT 09/20/2024 12:51 PM CDT Narrative [facility] - 09/21/2024 3:42 PM CDT Urine culture reflexed based upon urinalysis results. Testing performed by [facility] ([phone]) Adolph Palacios MD LAB MICROBIOLOGY - GENER AL ORDERABLES Final Result Performing Organization Address [facility] de Phone Number [facility] Department [place] [address] * Troponin I high-sensitivity series (baseline, 2hr, 4hr, 6hr) (09/20/2024 10:51 AM CDT) Trop I hs 8 <=17 ng/L Comment: Interpretive Data For further hscTnI resources including the diagnostic algorithm and an aid in interpretation, copy and paste this link: https://bjhlab.testcatalog.org/show/hsTrop-1 Current Interpretive Data last revised 2020. Blood 09/20/2024 10:5 1 AM CDT 09/20/2024 11:08 AM CDT Adolph Palacios MD LAB BLOOD ORDERABLES Fin al Result Performing Organization Address [facility] de Phone Number [facility] Department [place] [address] * eGFR (09/20/2024 10:51 AM CDT) eGFR [...] LAB BLOOD ORDERABLES Fin al Result [facility] [place] [address] * (ABNORMAL) Pro B-type natriuretic peptide (09/20/2024 [...] et.al. Eur Heart J. 2006:27:330-337. 2. Justina CHENG, Augusto REILLY. J. AM Guerita Cardiol: Cardiovasc Imag. 2009;2: 216- 225. Interpretive Data Last Revised Date: 2018. Blood 09/20/2024 10:5 1 AM CDT 09/20/2024 11:08 AM CDT Adolph Palacios MD LAB BLOOD ORDERABLES Fin al Result Performing Organization Address City/[facility] Co de Phone Number [facility] Department [place] [address] * TSH (09/20/2024 10:51 AM CDT) [facility] Thyroid Stimulating Hormone 2.48 0.30 - 4.20 mcIUnit/mL Blood 09/20/2024 10:5 1 AM CDT 09/20/2024 11:08 AM CDT Lanre Shafer MD LAB BLOOD ORDERABLES Fin al Result Performing Organization Address [facility] de Phone Number [facility] [place] [address] * Basic metabolic panel (09/20/2024 10:51 AM CDT) [facility] Sodium 141 135 - 145 mmol/L Potassium, pl 3.9 3.3 - 4.9 mmol/L [facility] Chloride 107 97 - 110 mmol/L [facility] CO2 25 22 - 32 mmol/L [facility] Anion gap 9 2 - 15 mmol/L [facility] BUN 19 6 - 25 mg/dL [facility] Creatinine 0.71 0.60 - 1.10 mg/dL [facility] Glucose 126 70 - 199 mg/dL [facility] Comment: Interpretive Data Fasting glucose >/= [...] classification and Diagnosis of Diabetes Diabetes Care 2021; 46: S19-S40. Current interpretive data was last revised 2022. Calcium 8.8 8.5 - 10.3 mg/dL [facility] Blood 09/20/2024 10:5 1 AM CDT 09/20/2024 11:08 AM CDT us Lanre Shafer MD LAB BLOOD ORDERABLES Fin al Result [facility] [place] [address] * Portable/Home Sleep Study (09/16/2024) Shannan Juan MD - 09/16/2024 HOME SLEEP APNEA TEST HISTORY: Romi Bradley is a 54 y.o. female who presents for Home sleep apnea test. (HSAT). Reason for sleep study: Snoring, atrial fibrillation [place] Sleepiness Score: 14 Weight: 284 lbs BMI: 41.94 PROCEDURE: This is a single night diagnostic study. This Home Sleep apnea Test (HSAT) utilized an unattended FDA approved RedMed apnea link home air portable monitoring device investigating for obstructive sleep apnea. The patient was provided instructions of the device and application by the registered mri technologist at the [facility]. This test was performed without a pathology technologist in attendance. In this study, the following parameters were monitored: Emerald-nasal airflow, snoring, chest respiratory effort, abdominal respiratory effort, body position, movement, oxygen saturation, and heart rate. Respiratory events are scored according to the criteria from The [place] [employer] (AASM) Manual for [...] be taken into consideration. Shannan Nickerson MD [facility] Sleep Medicine Narrative Shannan Nickerson MD - 09/16/2024 Ocst is ready for review us Jonnie Sanchez MD SLEEP CENTER ORDERABLES F inal Result * Lipid panel (08/13/2024 5:39 PM GLASS GRINDER) SCRIBED Cholesterol, Total 145 <200 EXTERNAL LAB SCRIBED HDL 50 >40 EXTERNAL LAB SCRIBED LDL 76 <100 EXTERNAL LAB SCRIBED Triglycerides 141 <150 EXTERNAL LAB Blood us Historical Provider LAB BLOOD ORDERABLES Edit ed Result - Final EXTERNAL LAB from Last 3 Months Insurance * Guarantor: Romi Bradley Account Type Relation to Patient Date of Phone Billing Address Personal/Family Self 1970 [address] [place] [address] [facility] [employer] * Guarantor: Romi Bradley Account Type Relation to Patient Date of Phone Billing Address Personal/Family Self 1970 [address] [place] [address] [facility] Care Teams Insulation Extruder Operator Relationship Specialty Start Date End Date Hiren Nuno [place] [address] [place] [address] PCP - General Physician Last [place] 09/12/23
== END 2024-10-21 09:31 | disposition home or self-care (01) ==
PROVIDERS: PCP Nurse Practitioner; Visit Provider Obstetrics & Gynecology
DX: Z12.31 Encounter for screening mammogram for malignant neoplasm of breast (principal)
CPT/HCPCS: 77063; 77067

== ENCOUNTER 2024-11-25 22:30 | Observation (INO) | payer OTHER, SELFPAY ==
[2024-11-25] VITALS (10 sets, daily range): BP systolic 96–131; BP diastolic 82–112; PULSE 123–150; RESP 12–20; O2SAT 96–99
--- OUTSIDE RECORDS SUMMARY | 2024-11-25 22:32 | XMS_ITS | Encounter Summary ---
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
--- OUTSIDE RECORDS SUMMARY | 2024-11-25 22:32 | XMS_ITS | Encounter Summary ---
Author Organization [facility] Healthcare Address [address] [place] [address] Care Team Providers Care Erp Engineer Name Role Phone Hiern Nuno Primary Care Provider Encounter Details Date Type Department Care Team (Late st Contact Info) Description 10/22/2024 Results Follow-Up [facility] Medical Group Cardiology at [address] [place] [address] Niko Boswell MD [address] [address] Social History Tobacco Use Types [...] on file Legal Sex Female 4:09 AM CRYSTALIZER Gender Identity Female 03/30/2024 9:27 PM CDT Sexual Orientation Straight 03/30/2024 9: 27 PM CDT documented as of this encounter Plan of Treatment Not on file documented as of this encounter Visit Diagnoses Not on filedocumented in this encounter Care Teams Erp Engineer Relationship Specialty Start Date End Date Hiren Nuno PA [address] [facility] [address] [place] [id number] PCP - General Physician Well Tender 09/12/23 documented as of this encounter
--- OUTSIDE RECORDS SUMMARY | 2024-11-25 22:32 | XMS_ITS | Clinical Summary ---
Author Organization [facility] [address] Address [address] [place] [phone] Care Team Providers Care Unit Coordinator Name Role Phone Hiren Nuno Primary Care [...] Encounters Date Type Department Care Team Description 11/15/2024 Telephone [facility] Cardiology [address] [facility] [address]th [place] [address] [place] [address] Fred Thomas MD 10/25/2024 Telephone [facility] Cardiology [facility] 8th [place] [address] [place] [address] Corey Mera 10/22/2024 Telephone [facility] Medical [facility] Cardiology [address] [place] [address] [place] [phone] Jonnie Boswell MD 10/22/2024 Results Follow-Up [facility] Cardiology at [address] [place] [address] Jonnie Boswell MD 10/21/2024 12:57 PM CDT - 10/21/2024 11:59 PM CDT Hospital Encounter [facility] [address] [place] [id number] LVH (left ventricular hypertrophy) Discharge Disposition: Discharge to home or self care 10/01/2024 Telephone [facility] Cardiology [address] [place] [address] [address] [place] [address] Jonnie Boswell MD 10/01/2024 Results Follow-Up [facility] Cardiology at [address] [place] [address] Jonnie Boswell MD 09/30/2024 11:00 AM CDT Ancillary Procedure [facility] Cardiology at [address] [place] [address] PAF (paroxysmal atrial fibrillation) ([facility]); LVH (left ventricular hypertrophy); Biatrial enlargement; Systolic ejection murmur 09/20/2024 10:28 AM CDT - 09/20/2024 1:24 PM CDT Emergency [facility] Emergency Department 1 [place] [address] Adolph Palacios MD Atrial fibrillation with rapid ventricular response (HCC) (Primary Dx) Discharge Disposition: Discharge to home or self care 09/16/2024 Results Follow-Up [facility] Medical [facility] Cardiology [address] [facility] [address] [address] Jonnie Boswell MD Sleep apnea in adult (Primary Dx) 09/15/2024 8:00 AM DIRECTOR RISK - 09/15/2024 11:59 PM DIRECTOR RISK Hospital Encounter [facility] 1 [place] [address] Hypersomnolence Discharge Disposition: Discharge to home or self care 09/02/2024 8:30 AM DIRECTOR RISK Office Visit [facility] Cardiology [address] [place] [address] Jonnie Boswell MD PAF (paroxysmal atrial fibrillation) (HCC) (Primary Dx); Hyperlipidemia LDL goal <100; Hypersomnolence; LVH (left ventricular hypertrophy); Biatrial enlargement; Systolic ejection murmur; Severe obesity (HCC); Body mass index 40.0-44.9, adult (CMS/HCC) (HCC) 09/02/2024 Orders Only [facility] Cardiology [address] [place] [address] Provider, MD Anjelica from Last 3 Months Surgical History Surgery Date Site/Laterality Comments SECTION 2006 Medical History Medical History Date Comments [...] on file Legal Sex Female 4:09 AM DIRECTOR RISK Gender Identity Female 03/30/2024 9:27 PM CDT Sexual Orientation Straight 03/30/2024 9: 27 PM CDT Obstetrics History Last Filed Vital Signs Vital Sign Reading Time Taken Comments Blood Pressure 125/95 09/20/2024 12:00 PM CDT Pulse 66 09/20/2024 12:00 PM CDT Temperature 36.4 C (97.6 F) 09/20/2024 10:34 AM CDT Respiratory Rate 16 09/20/2024 12:00 PM CDT Oxygen Saturation 97% 09/20/2024 12:00 PM CDT Inhaled Oxygen Concentration - - Weight 122.5 kg (270 lb) 10/21/2024 1:10 PM CDT Height 172.7 cm (5' 8 ) 10/21/2024 1:10 PM CDT Body Mass Index 41.05 10/21/2024 1:10 PM CDT Plan of Treatment Health Maintenance Due Date Last Done Comments Breast Cancer Screening-Mammogram 1970 Cervical Cancer Screening 1971 Colon Cancer Screening-Colonoscopy 1971 Depression Screening 1971 Hepatitis C Screening 1971 DTaP/Tdap/Td Vaccine (1 - Tdap) 1982 Hepatitis B Screening 1989 Regular Well Visit/Exam 18-64 1989 Pneumococcal vaccine <65 (1 of 2 - PCV) 1990 Zoster Vaccine (2 of 2) 07/05/2022 05/10/2022 Covid-19 Vaccine (2023-2 5 season) 2024 05/12/2023, 06/18/2022, 06/09/2021, Additional history exists Influenza Vaccine (Season Ended) 2025 05/12/2023, 06/18/2022, 05/02/2021, Additional history exists Procedures Procedure Name Priority Date/Time Associated Diagnosis Comments MRI CARDIAC M&FUNC W WO CONTRAST Schedule Routine, Read Routine (OP Routine) 10/21/2024 2:20 PM CDT LVH (left ventricular hypertrophy) TRANSTHORACIC ECHO (TTE) COMPLETE W DOPPLER/CF WO [...] CDT PORTABLE/HOME SLEEP STUDY Routine 09/16/2024 Hypersomnolence from Last 3 Months Results * MRI Cardiac M&F W WO Contrast (10/21/2024 2:20 PM CDT) Anatomical Region Laterality Modality Body N/A Magnetic Resonan ce 10/21/2024 3:19 PM CDT Impressions 10/22/2024 7:41 AM CDT 1. Concentric left ventricular hypertrophy, most notably at the mid ventricle and base, resulting in stenosis of the LVOT. This may be secondary to hypertrophic cardiomyopathy versus hypertension. 2. There is moderate mitral valve regurgitation. There is systolic anterior motion of the anterior mitral valve leaflet. 3. Normal left ventricle (EDVi = 69 mL/m2) with normal function (EF = 65%). 4. No delayed gadolinium enhancement suggestive of an infiltrative cardiomyopathy or infarct. Dictated by: Shanice Christie MD The radiology attending physician has personally reviewed this study, and had reviewed and/or edited this written report and agrees with it. Electronically signed by: Jessica Rock M.D. Narrative 10/22/2024 7:41 AM CDT EXAM: MRI CARDIAC M/T/FUNC W WO CONTRAST HISTORY: Hypertrophic cardiomyopathy suspected, further testing LVH TECHNIQUE: Multiplanar MR imaging of the heart utilizing HASTE and TRUEFISP imaging sequences was performed before and after the administration of 20 mL intravenous gadolinium contrast agent according to a custom monitored protocol. 3-D postprocessing was subsequently performed on a dedicated 3-D workstation. COMPARISON: CTA heart and coronary arteries from 12/23/23 FINDINGS: There is concentric left ventricular hypertrophy most notable at the mid-cavity and base with a maximum myocardial thickness of 18 mm at the mid-cavity during diastole; this is located 43 mm from the mitral valve annulus in diastole. This results in left ventricular outflow stenosis where a subvalvular stenotic jet is seen. There is systolic anterior motion of the anterior mitral valve leaflet. The length of the anterior mitral valve leaflet in diastole is 34 mm. There is stenosis and mitral regurgitation. The atria are normal in size. The right ventricle is normal in size. There is some right ventricular hypertrophy. No focal wall motion abnormality. 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 Functional information: Left ventricle: Ejection fraction: 65% End diastolic volume: 167 mL (69 mL/m2, indexed) End systolic volume: 59 mL (24 mL/m2, indexed) Stroke volume: 108 mL (45 mL/m2, indexed) Cardiac output: 7.8 L/min Cardiac index: 3.21 L/min/m2 End diastolic mass: 173 g (71.5 g/m2, indexed) LVEDV/LVEDM = .96 Right ventricle: Ejection fraction: 51% End diastolic volume: 186 mL (76.5 mL/m2, indexed) End systolic volume: 92 mL (37.8 mL/m2, indexed) Stroke volume: 94 mL (38.9 mL/m2, indexed) Cardiac output: 6.8 L/min Cardiac index: 2.79 L/min/m2 Valves: Mitral valve: regurgitation Tricuspid valve: normal Pulmonic valve: normal Aortic valve: normal No delayed gadolinium enhancement to suggest infiltrative cardiomyopathy or infarct. No signal abnormalities on the T1 or T2 maps. Flow Quantification: Aorta above valve: Peak velocity: 148 m/sec Peak pressure gradient: 8.8 mmHg Fwd flow: 69 mL Rev flow: 2.9 mL Net flow: 66 mL Regurgitant fraction: 4% Aorta below valve: (Flow calculations are less accurate in this region below the valve plane due to increased turbulence.) Peak velocity: 2.0 m/sec Gradient across LVOT: 16 mmHg Pulmonary artery above valve: Peak velocity: 75 m/sec Peak pressure gradient: 8.1 mmHg Fwd flow: 75 mL Rev flow: 0.7 mL Net flow: 75 mL Regurgitant fraction: 0.9% Mitral valve regurgitant fraction (calculated): (108 mL - 69 mL) / 108 mL = 36% No thoracic lymphadenopathy. Procedure Note Jessica Rock MD - 10/22/2024 EXAM: MRI CARDIAC M/T/FUNC W WO CONTRAST HISTORY: Hypertrophic cardiomyopathy suspected, further testing LVH TECHNIQUE: Multiplanar MR imaging of the heart utilizing HASTE and TRUEFISP imaging sequences was performed before and after the administration of 20 mL intravenous gadolinium contrast agent according to a custom monitored protocol. 3-D postprocessing was subsequently performed on a dedicated 3-D workstation. COMPARISON: CTA heart and coronary arteries from 12/23/23 FINDINGS: There is concentric left ventricular hypertrophy most notable at the mid-cavity and base with a maximum myocardial thickness of 18 mm at the mid-cavity during diastole; this is located 43 mm from the mitral valve annulus in diastole. This results in left ventricular outflow stenosis where a subvalvular stenotic jet is seen. There is systolic anterior motion of the anterior mitral valve leaflet. The length of the anterior mitral valve leaflet in diastole is 34 mm. There is stenosis and mitral regurgitation. The atria are normal in size. The right ventricle is normal in size. There is some right ventricular hypertrophy. No focal wall motion abnormality. 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 Functional information: Left ventricle: Ejection fraction: 65% End diastolic volume: 167 mL (69 mL/m2, indexed) End systolic volume: 59 mL (24 mL/m2, indexed) Stroke volume: 108 mL (45 mL/m2, indexed) Cardiac output: 7.8 L/min Cardiac index: 3.21 L/min/m2 End diastolic mass: 173 g (71.5 g/m2, indexed) LVEDV/LVEDM = .96 Right ventricle: Ejection fraction: 51% End diastolic volume: 186 mL (76.5 mL/m2, indexed) End systolic volume: 92 mL (37.8 mL/m2, indexed) Stroke volume: 94 mL (38.9 mL/m2, indexed) Cardiac output: 6.8 L/min Cardiac index: 2.79 L/min/m2 Valves: Mitral valve: regurgitation Tricuspid valve: normal Pulmonic valve: normal Aortic valve: normal No delayed gadolinium enhancement to suggest infiltrative cardiomyopathy or infarct. No signal abnormalities on the T1 or T2 maps. Flow Quantification: Aorta above valve: Peak velocity: 148 m/sec Peak pressure gradient: 8.8 mmHg Fwd flow: 69 mL Rev flow: 2.9 mL Net flow: 66 mL Regurgitant fraction: 4% Aorta below valve: (Flow calculations are less accurate in this region below the valve plane due to increased turbulence.) Peak velocity: 2.0 m/sec Gradient across LVOT: 16 mmHg Pulmonary artery above valve: Peak velocity: 75 m/sec Peak pressure gradient: 8.1 mmHg Fwd flow: 75 mL Rev flow: 0.7 mL Net flow: 75 mL Regurgitant fraction: 0.9% Mitral valve regurgitant fraction (calculated): (108 mL - 69 mL) / 108 mL = 36% No thoracic lymphadenopathy. IMPRESSION: 1. Concentric left ventricular hypertrophy, most notably at the mid ventricle and base, resulting in stenosis of the LVOT. This may be secondary to hypertrophic cardiomyopathy versus hypertension. 2. There is moderate mitral valve regurgitation. There is systolic anterior motion of the anterior mitral valve leaflet. 3. Normal left ventricle (EDVi = 69 mL/m2) with normal function (EF = 65%). 4. No delayed gadolinium enhancement suggestive of an infiltrative cardiomyopathy or infarct. Dictated by: Shanice Christie MD The radiology attending physician has personally reviewed this study, and had reviewed and/or edited this written report and agrees with it. Electronically signed by: Jessica Rock M.D. us Jonnie Boswell MD IMG MRI PROCEDURES Final Result * TRANSTHORACIC ECHO (TTE) COMPLETE W DOPPLER/CF WO CONTRAST (09/30/2024 12:00 PM CDT) LV EF 70-75 % CONS SCIMAGE Anatomical Region Laterality Modality Ultrasound 09/30/2024 11:1 2 AM CDT Narrative 09/30/2024 12:56 PM CDT [facility] Cardiology [address] [facility], [address], [place] [address] P:[phone] P:[phone] Echocardiographic Report Patient Name: ROMI BRADLEY : 1970 Study Date: 09/30/2024 11:12:56 AM Gender: F Tech: Location: EDW Ref Provider: JONNIE BOSWELL Height(Cm): 175 BSA: 2.5 Weight(Kg): 128.4 Heart Rate: 69 BP: 125 / 95 Quality: Good Order Provider: DANIEL,JONNIE PROCEDURES: Echocardiographic Report: Transthoracic echocardiogram with complete [...] FINDINGS: Interpretation Site: Exam was interpreted at [facility]. Left Ventricle: Normal left ventricular systolic [...] Normal sinus rhythm. Electronically Signed By: Jonnie Boswell MD 09/30/2024 12:56:00 PM CDT Procedure Note Jonnie Boswell MD - 09/30/2024 [facility] Cardiology [address] , [address], [place] [address] P:[phone] P:[phone] Echocardiographic Report Patient Name: ROMI BRADLEY : 1970 Study Date: 09/30/2024 11:12:56 AM Gender: F Tech: Location: EDW Ref Provider: JONNIE BOSWELL Height(Cm): 175 BSA: 2.5 Weight(Kg): 128.4 Heart Rate: 69 BP: 125 / 95 Quality: Good Order Provider: JONNIE BOSWELL PROCEDURES: Echocardiographic Report: Transthoracic echocardiogram with complete [...] FINDINGS: Interpretation Site: Exam was interpreted at [facility]. Left Ventricle: Normal left ventricular systolic [...] Normal sinus rhythm. Electronically Signed By: Jonnie Boswell MD 09/30/2024 12:56:00 PM CDT us Jonnie Boswell MD CV ECHO PROCEDURES Final Result * [...] cardiac workup Adolph Palacios MD 09/20/24 1353 Lanre Shafer MD ECG ORDERABLES Final Re sult [facility] * Critical Care (09/20/2024 1:24 PM CDT) [...] Trop I hs delta 3 ng/L [facility] Trop I hs interp Insignificant [facility] Blood 09/20/2024 12:4 9 PM CDT 09/20/2024 1:21 PM CDT Adolph Palacios MD LAB BLOOD ORDERABLES Fin al Result [facility] [place] [address] * XR Chest Pa Lateral 2 Vw [...] normal. Electronically signed by: Angel Sheehan M.D. us Adolph Palacios MD IMG XR PROCEDURES Final [...] the ED Adolph Palacios MD 09/20/24 1100 Suzanne Adolph Hummel MD 09/20/24 1103 us Adolph Palacios MD ECG ORDERABLES Edited R esult - Final [facility] * (ABNORMAL) Urinalysis reflex to microscopic and culture Urine (09/20/2024 10:52 AM CDT) Color, ur Yellow Yellow Clarity, ur Turbid(A) Clear [facility] Specific gravity, ur 1.011 1.003 - 1.030 [facility] pH, urine 6.0 [facility] Comment: Interpretive Data U rine pH is affected by diet, medications, systemic acid-base disturbances, and renal tubular function. pH may affect urinary stone formation. For example, urine pH below 6.0 may help reduce the tendency for calcium phosphate stones and pH greater than 6.0 may reduce the tendency for uric acid stone formation. Source: [facility] Current Interpretive Data was last revised on 2017 Protein, ur ql Trace Negative [facility] Glucose, ur ql Negative Negative [facility] Ketones, ur Negative Negative [facility] Bilirubin, ur Negative Negative [facility] Blood, ur Negative Negative [facility] Urobilinogen, ur <2.0 <2.0 mg/dL [facility] Nitrite, ur Negative Negative [facility] Leukocyte esterase, ur 3+(A) Negative [facility] UA reflex comment Reflex to microscopic UA will be performed. [facility] Urine 09/20/2024 10:5 2 AM CDT 09/20/2024 11:03 AM CDT Narrative [id number]|2024-11-26 09:35:12|2024-11-26 09:35:12|PM.RUPALAR||||"Assessment and Plan Assessment and plan (1) Atrial fibrillation with rapid ventricular response: Code(s): I48.91 - Unspecified atrial fibrillation Status: Acute Assessment and Plan: Increase home Metoprolol from 25mg daily to 50mg daily. (2) Elevated troponin: Code(s): R79.89 - Other specified abnormal findings of blood chemistry Status: Acute Assessment and Plan: Likely demand ischemia from RVR. Coronary CTA from December 2023 shows normal coronary arteries with no CAD. No further workup for the elevated troponins indicated. Plan Okay to discharge home from a cardiac standpoint. Will arrange follow up in our office. Recommendations and plan discussed with Hospitalist. History of Present Illness History of Present Illness Consult date/time: 11/26/24 09:35 Requesting physician: Brionna Kolb PA-C Consult reason: atrial fibrillation Reason For Visit: AFib RVR, chest pain Narrative: Romi is a 54 year old patient with paroxysmal atrial fibrillation, hyperlipidemia who presented with palpitations, chest pain. Found to be in atrial fibrillation with RVR in the ED. Given Metoprolol 5mg IV in the ED, and subsequently converted to sinus. She has remained in sinus since then and is feeling well and back to her baseline now. Takes Metoprolol 25mg once daily at home. Initial troponin negative, repeat elevated at 0.314. TSH mildly elevated, however T4 and T3 normal. EKG with atrial fibrillation with RVR with diffuse ST depressions when in RVR. Coronary CTA from December 2023 shows normal coronary arteries with no CAD. Review of Systems Review of Systems: All systems reviewed & are unremarkable except as noted in HPI and below (HPI) [facility] Past Medical History Medical History Prediabetes Left ventricular hypertrophy Paroxysmal atrial fibrillation Perimenopause Morbid obesity with BMI of 40.0-44.9, adult Surgical History Surgical History History of foot surgery (2001) hammer toes History of rotator cuff surgery (03/18/17) left shoulder History of endometrial ablation 06/18/12 Novasure ablation--menorrhagia History of dilation and curettage 02/04/12 hscope d&c--benign proliferative endometrium 02/23/14 hscope d&c--early secretory endometrium History of cervical polypectomy (01/24/12) in office--benign endocervical polyp Delivery by section x2 2002, 2006 Family History Family History Father Diabetes mellitus Family history of lung cancer Family history of atrial fibrillation Heart disease Kidney disease Grandparent Family history of cardiovascular disease Family history of pancreatic cancer Family history of lung cancer Family history of throat cancer Mother Family history of liver disease Family history of atrial fibrillation Cerebrovascular accident Osteoporosis Carcinoma of colon Sibling No problems noted. Social History Social History Social History: Surrogate medical decision maker: Doyle Bradley, spouse. Code status: Full code. Smoking status: Never smoker Second hand tobacco smoke exposure: Yes Alcohol intake: former Drinks per week: 1 Alcohol use details: occasionally Substance use: never Substance use type: does not use Do You Feel Safe in your Home?: Yes Lack of Transportation: No Lack of Food: Never True Current Housing: I Have Housing Concerned About Future Housing: No Difficulty Paying Gas/Electric Bills: No Difficulty Paying for Meds: No Currently Unemployed: No Education: Bachelor's Degree Difficulty w/ Childcare or Family Care: No Living arrangements: with family Additional living arrangements comments: . Lives with spouse in [place]. They have 2 children. 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 Spiritual care concerns: No Meds Home Medications and Allergies Home Medications Medication Instructions Recorded Confirmed Type multivitamin 1 tablet PO DAILY 04/17/21 11/26/24 History cetirizine 10 mg capsule (Zyrtec) 10 mg PO DAILY 07/17/22 11/26/24 History calcium carbonate (Calcium Antacid) 400 mg PO DAILY 04/28/23 11/26/24 History atorvastatin 40 mg tablet 40 mg PO HS #30 tabs 11/08/23 11/26/24 Rx melatonin 5 mg tablet 5 mg PO HS PRN sleep 11/24/23 11/26/24 History aspirin 81 mg capsule 81 mg PO DAILY #90 caps 06/07/24 11/26/24 Rx montelukast 10 mg tablet 10 mg PO DAILY #90 tabs 10/13/24 11/26/24 Rx metoprolol succinate 50 mg 50 mg PO DAILY #30 tabs 11/26/24 Rx tablet,extended release 24 hr Allergies Allergy/AdvReac Type Severity Reaction Status Date / Time No Known Allergies Allergy Verified 11/25/24 22:31 Vital Signs Vital Signs - 24 hr 11/25/24 22:44 11/25/24 22:45 11/25/24 22:46 Temperature Pulse Rate 147 H 147 H 130 H Respiratory Rate 16 16 18 Blood Pressure 122/84 131/112 H Pulse Oximetry 97 98 98 Oxygen Delivery 11/25/24 23:00 11/25/24 23:04 11/25/24 23:10 Temperature Pulse Rate 150 H 136 H 123 H Respiratory Rate 20 19 Blood Pressure 96/82 L Pulse Oximetry 96 97 Oxygen Delivery 11/25/24 23:13 11/25/24 23:15 11/25/24 23:26 Temperature Pulse Rate 140 H 140 H 135 H Respiratory Rate 18 16 12 Blood Pressure 131/112 H 100/84 Pulse Oximetry 99 98 Oxygen Delivery Room Air 11/25/24 23:27 11/26/24 01:15 11/26/24 04:49 Temperature 36.8 C 36.8 C Pulse Rate 140 H 72 71 Respiratory Rate 18 18 Blood Pressure 150/85 H 160/75 H Pulse Oximetry 99 100 Oxygen Delivery 11/26/24 06:00 11/26/24 07:54 Temperature 36.4 C L Pulse Rate 71 68 Respiratory Rate 24 H Blood Pressure 133/75 Pulse Oximetry 98 Oxygen Delivery Exam Const: General: comfortable and no acute distress HENMT: Mouth: Yes moist mucous membranes Eyes: General: appearance normal, both eyes and all related structures Sclera: sclerae normal Resp: Effort & Inspection: normal respiratory effort Cardio: Rate: regular rate Rhythm: regular rhythm Skin: General skin exam: normal color Neuro: Speech: normal speech Psych: Mental Status: mental status grossly normal Affect: normal affect Results Labs and Meds 11/25/24 23:01 11/26/24 05:29 Lab results: Cardiac Enzymes 11/25/24 11/26/24 Range/Units 23:01 05:30 AST 47 H (14-36) U/L Troponin I 0.012 0.314 H* D (0.000-0.034) ng/mL Coagulation 11/25/24 Range/Units 23:01 PT 13.5 (11.1-14.7) Seconds APTT 27.8 (22.3-36.8) Seconds Lipids 11/26/24 Range/Units 05:29 Triglycerides 167 H (<150) mg/dL Cholesterol 149 (0-200) mg/dL CBC 11/25/24 Range/Units 23:01 WBC 8.3 (4.5-10.0) K/mm3 RBC 4.80 (4.2-5.4) M/mm3 Hgb 13.3 (12.0-15.0) g/dL Hct 41.2 (37.0-47.0) % Plt Count 258 (150-375) k/mm3 Lymph # (Auto) 2.24 (0.9-3.2) K/mm3 [place] # (Auto) 0.8 H (0.1-0.6) K/mm3 Eos # (Auto) 0.2 (0-0.3) K/mm3 Baso # (Auto) 0.1 (0.0-0.1) K/mm3 Comprehensive Metabolic Panel 11/25/24 11/26/24 Range/Units 23:01 05:29 Sodium 137 140 (137-145) mmol/L Potassium 4.1 3.9 (3.4-5.0) mmol/L Chloride 103 108 H (98-107) mmol/L Carbon Dioxide 27 24 (22-30) mmol/L BUN 21 H 20 H (7-17) mg/dL Creatinine 0.82 0.66 L (0.7-1.0) mg/dL Glucose 129 H 101 (65-110) mg/dL Calcium 8.9 8.6 (8.4-10.2) mg/dL AST 47 H (14-36) U/L ALT 41 H (6-35) U/L Alkaline Phosphatase 77 (38-126) U/L Total Protein 8.0 (6.3-8.2) g/dL Albumin 4.3 (3.5-5.1) g/dL Intake and Output 11/25/24 11/26/24 11/26/24 23:59 07:59 15:59 Intake Total 240 Balance 240 Intake: Oral 240 Other: # Unmeasured Voids 1 Patient Weight 11/26/24 23:59 Weight 130.5 kg"
--- OUTSIDE RECORDS SUMMARY | 2024-11-25 22:32 | XMS_ITS | Referral Summary ---
Author Organization [facility] [address] Address [address] [place] [phone] Care Team Providers Care Fishing Boat Mate Name Role Phone Hiren Nuno Primary Care Provider Encounters Date Type Department Care Team Description 11/15/[address] [facility] Cardiology [facility] [address]th [place] [address] [place] [address] Fred Thomas MD 10/25/[address] [facility] Cardiology [facility] 8th [place] [address] [place] [phone] Mera Nicole 10/22/2024 Telephone [facility] [address] [facility] [address] [place] [phone] Jonnie Boswell MD 10/22/2024 Results Follow-Up [facility] Cardiology at [address] [place] [phone] Jonnie Boswell MD 10/21/2024 12:57 PM CDT - 10/21/2024 11:59 PM CDT Hospital Encounter [facility] [address] [place] [address] LVH (left ventricular hypertrophy) Discharge Disposition: Discharge to home or self care 10/01/2024 Telephone [facility] [address] [facility] [address] [place] [phone] Jonnie Boswell MD 10/01/2024 Results Follow-Up [facility] Cardiology at [address] [place] [address] Jonnie Boswell MD 09/30/2024 11:00 AM CDT Ancillary Procedure [facility] Cardiology at [address] [place] [phone] PAF (paroxysmal atrial fibrillation) (HCC); LVH (left ventricular hypertrophy); Biatrial enlargement; Systolic ejection murmur 09/20/2024 10:28 AM CDT - 09/20/2024 1:24 PM CDT Emergency [facility] Emergency Department 1 [place] [address] Adolph Palacios MD Atrial fibrillation with rapid ventricular response (HCC) (Primary Dx) Discharge Disposition: Discharge to home or self care 09/16/2024 Results Follow-Up [facility] Cardiology [address] [facility] [address] [place] [phone] Jonnie Boswell MD Sleep apnea in adult (Primary Dx) 09/15/2024 8:00 AM LINUX DEVELOPER - 09/15/2024 11:59 PM LINUX DEVELOPER Hospital Encounter [facility] 1 [place] [address] Hypersomnolence Discharge Disposition: Discharge to home or self care 09/02/2024 Orders Only [facility] Cardiology [address] [facility] [address] [place] [phone] Anjelica Dixon MD 09/02/2024 8:30 AM LINUX DEVELOPER Office Visit [facility] Cardiology [address] [facility] [address] [place] [phone] Jonnie Boswell MD PAF (paroxysmal atrial fibrillation) [...] on file Legal Sex Female 4:09 AM LINUX DEVELOPER Gender Identity Female 03/30/2024 9:27 PM CDT [...] 10/21/2024 1:10 PM CDT Plan of Treatment Not on file [...] AM CDT Narrative 09/30/2024 12:56 PM CDT [facility] [address], [address], [place] [address] P:[phone] P:[phone] Echocardiographic Report Patient Name: ROMI BRADLEY : [...] FINDINGS: Interpretation Site: Exam was interpreted at [facility]. Left Ventricle: Normal left ventricular systolic [...] Procedure Note Jonnie Boswell MD - 09/30/2024 [facility] [address] [facility], [address], [place] [address] P:[phone] P:[phone] Echocardiographic Report Patient Name: ROMI BRADLEY : [...] FINDINGS: Interpretation Site: Exam was interpreted at [facility]. Left Ventricle: Normal left ventricular systolic [...] MD ECG ORDERABLES Final Re sult [facility] * Critical Care (09/20/2024 1:24 PM [...] Trop I hs delta 3 ng/L JERMAIN BJ Trop I hs interp Insignificant CERNER BJ H Blood 09/20/2024 12:4 9 PM CDT 09/20/2024 1:21 PM CDT us Adolph Palacios MD LAB BLOOD ORDERABLES Fin al Result JERMAIN LEVY [facility] [place] [address] * XR Chest Pa Lateral 2 Vw [...] 12-LEAD (09/20/2024 10:55 AM CDT) Narrative [facility] - 09/20/2024 10:55 AM CDT Adolph Palacios [...] ECG ORDERABLES Edited R esult - Final [facility] * (ABNORMAL) Urinalysis reflex to microscopic and culture Urine (09/20/2024 10:52 AM CDT) Color, ur Yellow Yellow Clarity, ur Turbid(A) Clear [facility] Specific gravity, ur 1.011 1.003 - 1.030 [facility] pH, urine 6.0 [facility] Comment: Interpretive Data U rine pH is affected by diet, medications, systemic acid-base disturbances, and renal tubular function. pH may affect urinary stone formation. For example, urine pH below 6.0 may help reduce the tendency for calcium phosphate stones and pH greater than 6.0 may reduce the tendency for uric acid stone formation. Source: [place] [employer] Current Interpretive Data was last revised on 2017 Protein, ur ql Trace Negative [facility] Glucose, ur ql Negative Negative [facility] Ketones, ur Negative Negative [facility] Bilirubin, ur Negative Negative [facility] Blood, ur Negative Negative [facility] Urobilinogen, ur <2.0 <2.0 mg/dL [facility] Nitrite, ur Negative Negative [facility] Leukocyte esterase, ur 3+(A) Negative [facility] UA reflex comment Reflex to microscopic UA will be performed. [facility] Urine 09/20/2024 10:5 2 AM CDT 09/20/2024 11:03 AM CDT Adolph Palacios MD LAB MICROBIOLOGY - GENER AL ORDERABLES Final Result Performing Organization Address [facility] de Phone Number [facility] [place] [address] * (ABNORMAL) Urinalysis, microscopic only (09/20/2024 10:52 AM CDT) WBC, ur 11-20(A) 0 - 5 /HPF RBC, ur 0-2 0 - 2 /HPF [facility] Epithelial cells, squamous, ur 21-50(A) 0 - 5 /HPF [facility] Comment:Suggestive of contam ination. Consider recollection by clean catch. Bacteria, ur 3+(A) [facility] Culture Reflex Comment Reflex to urine culture will be performed. [facility] Urine 09/20/2024 10:5 2 AM CDT 09/20/2024 11:03 AM CDT Adolph Palacios MD LAB URINE ORDERABLES Fin al Result Performing Organization Address [facility] de Phone Number [facility] [place] [address] * Urine culture Urine (09/20/2024 10:52 AM CDT) Report Final Report: Less than 100,000 colonies/mL (clinically insignificant growth based on current clinical standards) [id number]|2024-11-26 09:35:00|2024-11-26 09:35:00|FABIAN_BENTON|EDIS|Health Information Management|[id number]|"Assessment and Plan Assessment and plan (1) Atrial [...] arteries with no CAD. Review of Systems 2 Review of Systems: All systems reviewed & are unremarkable except as noted in HPI and below (HPI) [facility] Past Medical History Medical History Prediabetes Left [...] arrangements comments: . Lives with spouse in [place]. They have 2 children. 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 Spiritual care concerns: No Meds Home Medications [...] 133/75 Pulse Oximetry 98 Oxygen Delivery Exam 2 Const: General: comfortable and no acute distress HENMT: Mouth: Yes moist mucous membranes Eyes: General: appearance normal, both eyes and all related structures S clera: sclerae normal Resp: Effort & Inspection: normal [...] k/mm3 Lymph # (Auto) 2.24 (0.9-3.2) K/mm3 Howard # (Auto) 0.8 H (0.1-0.6) K/mm3 Eos [...] 1 Patient Weight 11/26/24 23:59 Weight 130.5 kg "
--- OUTSIDE RECORDS SUMMARY | 2024-11-25 22:32 | XMS_ITS | Clinical Summary ---
Author Organization [facility] Address [address] [facility] [place] [address] Care Team Providers Care Cognos Developer Name Role Phone Ray Turner DO Primary Care Provider [phone] Source Comments [facility],non-owned Affiliates and Associated Physician Practices is amultiple site organization consisting of ambulatory clinics and hospital sitesin [place], [place], [place] and [place]. This disclosure is being madepursuant to the Care Everywhere program and may not contain all information available regarding this patient. Last updated 18.[facility] Allergies No known active allergies Medications * Be aware that medications may not be up to date on this document. Alwaysverify current medications with the patient. Montelukast Sodium (SINGULAIR PO) Activ e Cetirizine HCl (ZYRTEC PO) Active Immunizations Immunization Administration Dates Next Due INFLUENZA VACCINE, QUADR. (F LUZONE; FLULAVAL; FLUARIX; AFLURIA QUADRIVALENT; 6MO+), 0.5 ML (IIV4) 05/02/2021 Family History Medical History Relation Name Comments Diabetes - Type 2 Father Relation Name Status Comments Father Social History Tobacco Use Types Packs/Day Years Used Date Smoking Tobacco: Never Smokeless Tobacco: Never Comments:parents smoked Comments No Sex and Gender Information Value Date Recorded Sex Assigned at Female 04/30/2021 6:33 PM CDT Legal Sex Female 12:16 PM SYSTEMS LIBRARIAN Gender Identity Female 04/30/2021 6:33 PM CDT Sexual Orientation Straight 04/30/2021 6: 33 PM CDT Last Filed Vital Signs Vital Sign Reading Time Taken Comments Blood Pressure 126/78 05/02/2021 12:27 PM CDT Pulse 76 05/02/2021 12:27 PM CDT Temperature 36.7 C (98.1 F) 05/02/2021 12:27 PM CDT Respiratory Rate 18 05/02/2021 12:27 PM CDT Oxygen Saturation 96% 05/02/2021 12:27 PM CDT Inhaled Oxygen Concentration - - Weight 117.5 kg (259 lb) 09/09/2018 10:54 AM SYSTEMS LIBRARIAN Height 170.2 cm (5' 7 ) 09/09/2018 10:54 AM SYSTEMS LIBRARIAN Body Mass Index 40.57 09/09/2018 10:54 AM SYSTEMS LIBRARIAN Plan of Treatment Health Maintenance Due Date Last Done Comments COLOGUARD (AGES 45-75) - COL ON CA SCREENING 1971 COLON MONITORING 1971 COLONOSCOPY - COLON CA SCREENING 1971 CT COLONOGRAPHY - COLON CA SCREENING 1971 Colorectal Cancer Screening 1971 FIT - COLON CA SCREENING 1971 FLEX SIG - COLON CA SCREENING 1971 LIPID TESTING 1971 MAMMOGRAM 1971 HIV SCREENING 1986 HEPATITIS C SCREENING 12/31/1988 DTAP/TDAP/TD VACCINES (1 - Tdap) 1990 HEPATITIS B VACCINE (1 of 3 - 19+ 3-dose series) 1990 PNEUMOCOCCAL VACCINE 50+ (1 of 1 - PCV) 2021 ZOSTER VACCINE (1 of 2) 2021 COVID-19 VACCINE (3 - 2023-2 5 season) 2024 11/06/2020, 10/10/2020 DEPRESSION SCREENING 07/14/2024 INFLUENZA VACCINE (Season Ended) 2025 05/02/2021, 05/05/2020 HIB VACCINE Aged Out No longer eligi ble based on patient's age to complete this topic HPV VACCINE Aged Out No longer eligi ble based on patient's age to complete this topic MENINGOCOCCAL (Group B) VACCINE SHARED DECISION-MAKING Aged Out No longer eligible based on patient's age to complete this topic MENINGOCOCCAL GROUPS A/C/Y/W VACCINE Aged Out No longer eligible b ased on patient's age to complete this topic [place] [address] Care Teams Cognos Developer Relationship Specialty Start Date End Date Ray Turner DO PCP - General Internal Medicine 07/02/16
--- NOTE | 2024-11-25 22:33 | ECG_ITS ---
Test Date: 2024-11-25 22:38:01 Measurements Intervals [place] Rate: 152 P: 0 WA: 0 QRS: -1 QRSD: 92 T: 119 QT: 301 QTc: 480 Interpretive Statements ATRIAL FIBRILLATION WITH RAPID VENTRICULAR RESPONSE VOLTAGE CRITERIA FOR LVH [MEETS CRITERIA IN ONE OF: R(aVL), S(V1), R(V5), R(V5/V6)+S(V1)] ST DEVIATION AND MODERATE T-WAVE ABNORMALITY, CONSIDER LATERAL ISCHEMIA [-0.1+ mV T WAVE IN I/aVL/V5/V6] ABNORMAL ECG No previous ECG available for comparison Electronically Signed On 11-26-2024 09:56:24 CDT by Niko Boswell M.D.
--- NOTE | 2024-11-25 22:55 | ED_ITS ---
HPI - Arrhythmia/Palpitations General Chief Complaint: Arrhythmia/Palpitations Stated Complaint: Afib-chest pressure, SHOB Time Seen by Provider: 11/25/24 22:41 History of Present Illness HPI narrative: 54-year-old female with history of paroxysmal atrial fibrillation, prediabetes, LVH. Patient presents to the emergency department with complaints of chest pressure and shortness of breath. She states that was onset about 1-1/2 hours ago and without any prodromal symptoms. She states it feels very similar to last time she was in AFib RVR back in September. She has been hospitalized for this previously. Sees Dr. Flores from Cardiology. She is on metoprolol 25 mg and baby aspirin but no other anticoagulation. No trauma or injury. No recent infectious symptoms or illnesses. No abdominal pain, leg swelling, calf cramping, history of DVT or PE, was otherwise in her normal state of health. Related Data Home Medications Medication Instructions Recorded Confirmed Last Taken Type multivitamin 1 tablet PO DAILY 04/17/21 11/26/24 Unknown History cetirizine 10 mg capsule (Zyrtec) 10 mg PO DAILY 07/17/22 11/26/24 Unknown History calcium carbonate (Calcium Antacid) 400 mg PO DAILY 04/28/23 11/26/24 Unknown History melatonin 5 mg tablet 5 mg PO HS PRN sleep 11/24/23 11/26/24 Unknown History Allergies Allergy/AdvReac Type Severity Reaction Status Date / Time No Known Allergies Allergy Verified 11/25/24 22:31 Review of Systems 2 Review of Systems: As reviewed above in HPI [facility] Past Medical History Medical History (Updated 11/26/24 @ 06:41 by Jony Valero MD) Prediabetes Left ventricular hypertrophy Paroxysmal atrial fibrillation Perimenopause Morbid obesity with BMI of 40.0-44.9, adult Surgical History Surgical History History of foot surgery (2001) hammer toes History of rotator cuff surgery (03/18/17) left shoulder History of endometrial ablation 06/18/12 Novasure ablation--menorrhagia History of dilation and curettage 02/04/12 hscope d&c--benign proliferative endometrium 02/23/14 hscope d&c--early secretory endometrium History of cervical polypectomy (01/24/12) in office--benign endocervical polyp Delivery by section x2 2002, 2006 Family History Family History Father Diabetes mellitus Family history of lung cancer Family history of atrial fibrillation Heart disease Kidney disease Grandparent Family history of cardiovascular disease Family history of pancreatic cancer Family history of lung cancer Family history of throat cancer Mother Family history of liver disease Family history of atrial fibrillation Cerebrovascular accident Osteoporosis Carcinoma of colon Sibling No problems noted. Social History Social History (Updated 11/26/24 @ 05:07 by Brionna Kolb PA-C) Social History: Surrogate medical decision maker: Doyle Bradley, spouse. Code status: Full code. Smoking status: Never smoker Second hand tobacco smoke exposure: Yes Alcohol intake: former Drinks per week: 1 Alcohol use details: occasionally Substance use: never Substance use type: does not use Do You Feel Safe in your Home?: Yes Lack of Transportation: No Lack of Food: Never True Current Housing: I Have Housing Concerned About Future Housing: No Difficulty Paying Gas/Electric Bills: No Difficulty Paying for Meds: No Currently Unemployed: No Education: Bachelor's Degree Difficulty w/ Childcare or Family Care: No Living arrangements: with family Additional living arrangements comments: . Lives with spouse in [place]. They have 2 children. 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 Spiritual care concerns: No Exam 2 Narrative: GENERAL: [Well-appearing, well-nourished, and in no acute distress.] HEAD: [Normocephalic, atraumatic.] EYES: [PERRLA and EOMI.] ENT: Nares clear, no rhinorrhea or epistaxis. Mucous membranes moist. NECK: Supple. CHEST: [Clear to auscultation. No respiratory distress.] HEART: Irregular rate and rhythm. No murmur heard. [Normal peripheral pulses.] ABDOMEN: [Soft, nondistended], [nontender], [No rigidity or guarding] EXTREMITIES: Normal range of motion. [No edema.] SKIN: Warm, dry, no rash. NEURO: [No focal deficits]. Alert and oriented [x3.] PSYCH: [Normal mood and affect.] Course Vital Signs Vital signs: Vital Signs Pulse Rate 147 H 11/25/24 22:44 Respiratory Rate 16 11/25/24 22:44 Blood Pressure 122/84 11/25/24 22:44 Pulse Oximetry 97 11/25/24 22:44 Temperature 36.8 C 11/26/24 04:49 Pulse Rate 71 11/26/24 06:00 Respiratory Rate 18 11/26/24 04:49 Blood Pressure 160/75 H 11/26/24 04:49 Pulse Oximetry 100 11/26/24 04:49 Oxygen Delivery Room Air 11/25/24 23:13 MDM - Arrhythmia/Palpitations MDM Narrative Medical decision making narrative: 54-year-old female with history of paroxysmal atrial fibrillation on metoprolol and baby aspirin. She also has a history of LVH, prediabetes. Presents to the emergency department with concerns of rapid heart rate. She has complained of chest pressure and shortness of breath. She is found to be AFib RVR with a heart rate in the 140s to 170s. Blood pressure is acceptable at 131/110. She is mentating appropriately, not any acute distress. She states symptoms have been onset for about 1.5 hours. No prodromal symptoms. Last episode was in September. She sees Dr. Boswell from Cardiology. Patient's examination shows clear breath sounds, irregular tachycardic rate and irregular rhythm on palpation of her pulses. She has warm extremities. Considerations presently are for AFib RVR, electrolyte derangements, renal failure, dehydration, ischemic event. Blood was obtained including serial troponins, chest x-ray, EKG, CBC, CMP obtained. She was given 5 mg of IV Lopressor Q 5 minutes p.r.n. for control of her heart rate. EKG is concerning for global strain pattern with ST segment elevation in AVR with global depressions concerning for potential underlying coronary disease for which she was anticoagulated this time with Lovenox injection 1 milligram/kilogram. Laboratory studies pending as well as repeat evaluations after rate control. Currently she is hemodynamically stable otherwise. Workup shows no leukocytosis or anemia. Initial troponin is negative. Electrolytes are unremarkable. Normal renal function. Delta troponin largely elevated 0.314. Given Lovenox injection. Patient did receive several doses of IV Lopressor with good rate control. She states that when her heart rate is no longer is elevated she no longer has the crushing chest pressure she was experiencing. Discussed the case with Dr. Lomeli the on-call medical equipment sales regarding patient's presentation concern for chest pain and strain pattern on EKG when in rapid ventricular response. Patient will be seen on inpatient basis. Given her hemodynamic stability at this time and improvement with rate control we will admit her to the IMU at this time. Spoke to the hospitalist who agreed and patient was comfortable with the plan. Medical Records Attestation: I reviewed the patient's medical records. Lab Data Attestation: I reviewed the patient's lab results. 11/25/24 23:01 11/26/24 05:29 Labs: Lab Results 11/25/24 Range/Units 23:01 WBC 8.3 (4.5-10.0) K/mm3 RBC 4.80 (4.2-5.4) M/mm3 Hgb 13.3 (12.0-15.0) g/dL Hct 41.2 (37.0-47.0) % MCV 85.8 (80-100) fl MCH 27.7 (26-34) pg MCHC 32.3 (32-36) g/dl RDW 14.1 (11.5-14.5) % Plt Count 258 (150-375) k/mm3 MPV 9.8 (7.4-10.4) fl Immature Gran % (Auto) 0.2 (0-0.5) % Neut % (Auto) 60.5 (45.5-73.1) % Lymph % (Auto) 27.2 (18.3-44.2) % Elmore % (Auto) 9.3 H (2.6-8.5) % Eos % (Auto) 2.2 (0-4.4) % Baso % (Auto) 0.6 (0.2-1.2) % Lymph # (Auto) 2.24 (0.9-3.2) K/mm3 [place]more # (Auto) 0.8 H (0.1-0.6) K/mm3 Eos # (Auto) 0.2 (0-0.3) K/mm3 Baso # (Auto) 0.1 (0.0-0.1) K/mm3 Abs Immat Gran (auto) 0.02 (0.00-0.031) K/mm3 Absolute Neuts (auto) 5.0 (1.3-6.7) K/mm3 Absolute Nucleated RBC 0.000 (0.0-0.012) K/mm3 Nucleated RBC % 0.0 (0.0-0.2) % PT 13.5 (11.1-14.7) Seconds INR 1.0 APTT 27.8 (22.3-36.8) Seconds Sodium 137 (137-145) mmol/L Potassium 4.1 (3.4-5.0) mmol/L Chloride 103 (98-107) mmol/L Carbon Dioxide 27 (22-30) mmol/L Anion Gap 7 (4-12) mmol/L BUN 21 H (7-17) mg/dL Creatinine 0.82 (0.7-1.0) mg/dL Estim Creat Clear Calc Not Reportable Estimated GFR > 60 (59 - ) Glucose 129 H (65-110) mg/dL Calcium 8.9 (8.4-10.2) mg/dL Total Bilirubin 0.7 (0.2-1.3) mg/dL AST 47 H (14-36) U/L ALT 41 H (6-35) U/L Alkaline Phosphatase 77 (38-126) U/L Troponin I 0.012 (0.000-0.034) ng/mL Total Protein 8.0 (6.3-8.2) g/dL Albumin 4.3 (3.5-5.1) g/dL Lipase 316 H (23-300) U/L TSH (Reflex) 5.900 H (0.465-4.68) uIU/mL Free T4 1.07 (0.78-2.19) ng/dL Total T3 1.47 (0.97-1.69) NG/ML ECG Data EKG #1: Attestation: I personally reviewed and interpreted this ECG as follows: ECG completion date: 11/25/24 ECG completion time: 22:38 Prior ECG tracings: available for review Interpretation: Atrial fibrillation with rapid ventricular response with global strain pattern, AVR ST elevation global ST depressions. QTC 480, no P waves, rate of 152 beats per minute, QRS complex 92. Final interpretation AFib RVR with global strain pattern Critical Care Time Critical Care Time Critical Care Time: Yes Total Critical Care Time: 35 Discharge Plan Discharge Clinical Impression: Atrial fibrillation with rapid ventricular response, Elevated troponin, Chest pain Patient Disposition: Still a Patient Condition: Stable
[2024-11-25] MEDS: METOPROLOL TARTRATE INJ 5 MG/5 ML VIAL IV PUSH ×2 (23:04→23:27)
[2024-11-25 23:07] LABS: Basophils Absolute Auto 0.1 K/mm3 (0.0-0.1); Basophils Percent Auto 0.6 % (0.2-1.2); Eosinophils Absolute Auto 0.2 K/mm3 (0-0.3); Eosinophils Percent Auto 2.2 % (0-4.4); Hematocrit 41.2 % (37.0-47.0); Hemoglobin 13.3 g/dL (12.0-15.0); Immature Granulocyte Absolute 0.02 K/mm3 (0.00-0.031); Immature Granulocyte Percent A 0.2 % (0-0.5); Lymphocytes Absolute Auto 2.24 K/mm3 (0.9-3.2); Lymphocytes Percent Auto 27.2 % (18.3-44.2); Mean Corpuscular HGB Conc 32.3 g/dl (32-36); Mean Corpuscular Hemoglobin 27.7 pg (26-34); Mean Corpuscular Volume 85.8 fl (80-100); Mean Platelet Volume 9.8 fl (7.4-10.4); Monocytes Absolute Auto 0.8 K/mm3 (0.1-0.6); Monocytes Percent Auto 9.3 % (2.6-8.5); Neutrophils Percent Auto 60.5 % (45.5-73.1); Platelet Count Result 258 k/mm3 (150-375); Red Cell Distribution Width 14.1 % (11.5-14.5); White Blood Count 8.3 K/mm3 (4.5-10.0)
[2024-11-25 23:17] LABS: Prothrombin Time 13.5 Seconds (11.1-14.7)
[2024-11-25 23:18] LABS: Partial Thromboplastin Time 27.8 Seconds (22.3-36.8)
[2024-11-25 23:19] LABS: Alanine Aminotransferase 41 U/L (6-35); Albumin Level 4.3 g/dL (3.5-5.1); Alkaline Phosphatase 77 U/L (38-126); Anion Gap 7 mmol/L (4-12); Aspartate Amino Transferase 47 U/L (14-36); Bilirubin,Total 0.7 mg/dL (0.2-1.3); Blood Urea Nitrogen 21 mg/dL (7-17); Calcium 8.9 mg/dL (8.4-10.2); Carbon Dioxide 27 mmol/L (22-30); Chloride 103 mmol/L (98-107); Estimated Glomerular Filt Rate > 60; Glucose 129 mg/dL (65-110); Lipase 316 U/L (23-300); Potassium 4.1 mmol/L (3.4-5.0); Sodium 137 mmol/L (137-145)
[2024-11-25] MEDS: LACTATED RINGERS 1,000 ML 999 ML IV CONT (23:26)
[2024-11-25 23:31] LABS: Troponin I 0.012 ng/mL (0.000-0.034)
[2024-11-25] MEDS: ENOXAPARIN 80 MG/0.8 ML SYRINGE SUB-Q (23:52)
[2024-11-25] MEDS: ENOXAPARIN 60 MG/0.6 ML SYRINGE 45 MG SUB-Q (23:53)
--- NOTE | 2024-11-26 00:25 | PM.IMHP ---
H&P: HPI History of Present Illness Date/Time: 11/26/24 02:30 Chief Complaint: Chest pain, racing heart. Narrative: This is a very pleasant 54-year-old female with history of paroxysmal atrial fibrillation, left ventricular hypertrophy, hyperlipidemia, and prediabetes who presented to the emergency department via private vehicle with complaints of chest pain and racing heart. She was diagnosed with atrial fibrillation in October 2023 and she has been on a baby aspirin and metoprolol succinate 25 mg daily since that time. Echocardiogram on initial workup showed no obvious wall motion abnormalities, an ejection fraction of 65 to 70%, moderate left ventricular hypertrophy, and mild mitral valve regurgitation. Coronary CTA in December 2023 showed normal coronary arteries with a calcium score of 0 and more recently she had a cardiac MRI which showed left ventricular hypertrophy and she has been referred to Dr. Fred Thomas at [facility] with an upcoming appointment sometime in January. In any event, she estimates that she goes into rapid atrial fibrillation every couple of months. Last evening, approximally 1.5 hours prior to arrival to the ED, she was simply sitting down chatting with her when she developed sudden onset of racing heart, chest pressure, and shortness of breath simply while sitting down. The symptoms are similar to prior episodes when she has been in rapid atrial fibrillation however the chest pressure seems to be much more intense and she states it feels as though “several elephants are dancing on my chest.” She denies fever, cold and flu symptoms, exertional chest pain, syncope, near syncope, abdominal pain, nausea, vomiting, sweats, edema, and calf pain. In the ED: Vital signs on arrival include a heart rate of 147 and a blood pressure of 122/84. Labs were significant for a WBC count of 8.3, hemoglobin 13.3, platelets 258, lipase 316, TSH 5.90, troponin 0.012. EKG showed rapid atrial fibrillation with a rate of [address] depressions in lead 1, 2, V5, and V6. She was given metoprolol tartrate 5 mg IV zoroastrian of normal sinus rhythm. She was also given enoxaparin 1 mg/kg and she is being admitted in this setting for close monitoring and Cardiology consultation. Review of Systems Review of Systems: 12 systems were reviewed and are negative except for as per HPI. [facility] Past Medical History Medical History (Updated 11/26/24 @ 05:09 by Brionna Kolb PA-C) Prediabetes Left ventricular hypertrophy Paroxysmal atrial fibrillation Perimenopause Morbid obesity with BMI of 40.0-44.9, adult Surgical History Surgical History History of foot surgery (2001) hammer toes History of rotator cuff surgery (03/18/17) left shoulder History of endometrial ablation 06/18/12 Novasure ablation--menorrhagia History of dilation and curettage 02/04/12 hscope d&c--benign proliferative endometrium 02/23/14 hscope d&c--early secretory endometrium History of cervical polypectomy (01/24/12) in office--benign endocervical polyp Delivery by section x2 2002, 2006 Family History Family History Father Diabetes mellitus Family history of lung cancer Family history of atrial fibrillation Heart disease Kidney disease Grandparent Family history of cardiovascular disease Family history of pancreatic cancer Family history of lung cancer Family history of throat cancer Mother Family history of liver disease Family history of atrial fibrillation Cerebrovascular accident Osteoporosis Carcinoma of colon Sibling No problems noted. Social History Social History (Updated 11/26/24 @ 05:07 by Brionna Kolb PA-C) Social History: Surrogate medical decision maker: Doyle Bradley, spouse. Code status: Full code. Smoking status: Never smoker Second hand tobacco smoke exposure: Yes Alcohol intake: former Drinks per week: 1 Alcohol use details: occasionally Substance use: never Substance use type: does not use Do You Feel Safe in your Home?: Yes Lack of Transportation: No Lack of Food: Never True Current Housing: I Have Housing Concerned About Future Housing: No Difficulty Paying Gas/Electric Bills: No Difficulty Paying for Meds: No Currently Unemployed: No Education: Bachelor's Degree Difficulty w/ Childcare or Family Care: No Living arrangements: with family Additional living arrangements comments: . Lives with spouse in [place]. They have 2 children. 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 Spiritual care concerns: No Meds Home Medications and Allergies Home Medications Medication Instructions Recorded Confirmed Type multivitamin 1 tablet PO DAILY 04/17/21 11/26/24 History cetirizine 10 mg capsule (Zyrtec) 10 mg PO DAILY 07/17/22 11/26/24 History calcium carbonate (Calcium Antacid) 400 mg PO DAILY 04/28/23 11/26/24 History atorvastatin 40 mg tablet 40 mg PO HS #30 tabs 11/08/23 11/26/24 Rx metoprolol succinate 25 mg 25 mg PO DAILY #30 tabs 11/08/23 11/26/24 Rx tablet,extended release 24 hr melatonin 5 mg tablet 5 mg PO HS PRN sleep 11/24/23 11/26/24 History aspirin 81 mg capsule 81 mg PO DAILY #90 caps 06/07/24 11/26/24 Rx montelukast 10 mg tablet 10 mg PO DAILY #90 tabs 10/13/24 11/26/24 Rx Allergies Allergy/AdvReac Type Severity Reaction Status Date / Time No Known Allergies Allergy Verified 11/25/24 22:31 Vital Signs Vital Signs - 24 hr 11/25/24 22:44 11/25/24 22:45 11/25/24 22:46 Pulse Rate 147 H 147 H 130 H Respiratory Rate 16 16 18 Blood Pressure 122/84 131/112 H Pulse Oximetry 97 98 98 Oxygen Delivery 11/25/24 23:00 11/25/24 23:04 11/25/24 23:10 Pulse Rate 150 H 136 H 123 H Respiratory Rate 20 19 Blood Pressure 96/82 L Pulse Oximetry 96 97 Oxygen Delivery 11/25/24 23:13 11/25/24 23:15 11/25/24 23:26 Pulse Rate 140 H 140 H 135 H Respiratory Rate 18 16 12 Blood Pressure 131/112 H 100/84 Pulse Oximetry 99 98 Oxygen Delivery Room Air 11/25/24 23:27 Pulse Rate 140 H Respiratory Rate Blood Pressure Pulse Oximetry Oxygen Delivery Exam Narrative: General: Nontoxic-appearing female sitting at the side of the bed in no distress. Weight: 130.5 kg. BMI: 43.7. HEENT: PERRL, EOMI. Sclera anicteric. Oral mucosa moist. Neck: Supple. Respiratory: Lungs are clear to auscultation bilaterally. Cardiovascular: Regular rate and rhythm with S1-S2. Gastrointestinal: Abdomen is soft, obese, nontender, and nondistended with positive bowel sounds. Skin: Warm and dry. No rash or lesions on limited exam. Extremities: No cyanosis or clubbing. Mild lamar ankle edema bilaterally. Neurological: Alert. Cranial nerves 2-12 are grossly intact. No gross focal deficits to casual conversation. Psychiatric: Pleasant and cooperative with normal mood and affect. Judgment and insight intact. H&P: Results Labs Labs: Short CBC 11/25/24 Range/Units 23:01 WBC 8.3 (4.5-10.0) K/mm3 Hgb 13.3 (12.0-15.0) g/dL Hct 41.2 (37.0-47.0) % Plt Count 258 (150-375) k/mm3 BMP 11/25/24 23:01 Sodium 137 Potassium 4.1 Chloride 103 Carbon Dioxide 27 BUN 21 H Creatinine 0.82 Glucose 129 H Calcium 8.9 Cardiac Enzymes 11/25/24 Range/Units 23:01 Troponin I 0.012 (0.000-0.034) ng/mL Liver Function 11/25/24 Range/Units 23:01 Total Bilirubin 0.7 (0.2-1.3) mg/dL AST 47 H (14-36) U/L ALT 41 H (6-35) U/L Alkaline Phosphatase 77 (38-126) U/L Albumin 4.3 (3.5-5.1) g/dL Assessment and Plan Assessment and plan (1) Atrial fibrillation with rapid ventricular response: Code(s): I48.91 - Unspecified atrial fibrillation Status: Acute (2) Chest pressure: Code(s): R07.89 - Other chest pain Status: Acute (3) Mixed hyperlipidemia: Code(s): E78.2 - Mixed hyperlipidemia Status: Acute (4) Left ventricular hypertrophy: Code(s): I51.7 - Cardiomegaly Status: Acute Plan The patient presented to the emergency department for evaluation of sudden onset of racing heart, chest pressure, and shortness of breath as detailed in HPI. Labs, imaging, EKG, and all reports were personally reviewed. She was in rapid atrial fibrillation on arrival and reports that the symptoms are similar to prior episodes of the same. She is now back in normal sinus rhythm after receiving metoprolol tartrate 5 mg IV x1. She was given enoxaparin 1 mg/kg in the ED which will continue with for now however her [id number] score is 0 at the moment. She does have some ST depressions on her EKG which is likely demand ischemia from rapid atrial fibrillation however we will continue to trend her troponin and ask Cardiology to see her in consultation. Her home medications will be reviewed and resumed as appropriate. Findings and treatment plan were discussed with the patient. Questions were solicited and answered to satisfaction. The patient's medical management will be taken over by the hospitalist team in a.m. Quality VTE Prophylaxis VTE prophylaxis: pharmacologic ordered The patient has been admitted under observation status. Hospitalist [facility] Advance Care Plan I have confirmed that the patient's Advanced Care Plan is present, code status is documented, or surrogate decision maker is listed in patient medical record.: Yes Medication Reconciliation I have utilized all available resources to obtain, update and review the patients current medications (includes all prescriptions, OTC, herbals, cannabis, and nutritional supplements).: Yes
[2024-11-26 01:15] VITALS: BP 150/85; PULSE 72; RESP 18; TEMP 36.8; O2SAT 99
--- NOTE | 2024-11-26 01:45 | ADMGEN ---
This patient, Romi Bradley, was admitted to IMU Room 211-01. Patient/family oriented to hospital policies and general routines including ID bracelet, bed and alarms, visiting hours, pain management, procedures, bathroom and other care routines, personal items, smoking policy, room service/diet, and visiting hours. Information on how to activate the Rapid Response Team has been discussed. Patient/Family are encouraged to report perceived risks to care and to ask questions if they do not understand what they are told or what they should do.
[2024-11-26 04:46] VITALS: BMI 43.7
[2024-11-26 04:49] VITALS: BP 160/75; PULSE 71; RESP 18; TEMP 36.8; O2SAT 100
[2024-11-26 05:44] LABS: Free T4 Free Thyroxine Reflex 1.07 ng/dL (0.78-2.19)
[2024-11-26 05:57] LABS: Anion Gap 8 mmol/L (4-12); Blood Urea Nitrogen 20 mg/dL (7-17); Calcium 8.6 mg/dL (8.4-10.2); Carbon Dioxide 24 mmol/L (22-30); Chloride 108 mmol/L (98-107); Cholesterol 149 mg/dL (0-200); Estimated CRCL calculation 121 ml/min; Estimated Glomerular Filt Rate > 60; Glucose 101 mg/dL (65-110); HDL Direct 49 mg/dL; Lipase 272 U/L (23-300); Potassium 3.9 mmol/L (3.4-5.0); Sodium 140 mmol/L (137-145); Triglycerides 167 mg/dL (<150)
[2024-11-26 06:00] VITALS: PULSE 71
[2024-11-26 06:08] LABS: LDL Cholesterol Direct 67 mg/dL
[2024-11-26 06:10] LABS: Troponin I 0.314 ng/mL (0.000-0.034)
[2024-11-26 06:28] LABS: Total Triiodothyronine (T3) 1.47 NG/ML (0.97-1.69)
[2024-11-26 07:54] VITALS: BP 133/75; PULSE 68; RESP 24; TEMP 36.4; O2SAT 98
[2024-11-26 08:00] VITALS: PULSE 61
--- NOTE | 2024-11-26 08:37 | PM.IMPN ---
Progress Note: A&P Assessment and Plan (1) Atrial fibrillation with rapid ventricular response: Code(s): I48.91 - Unspecified atrial fibrillation Status: Acute (2) Chest pressure: Code(s): R07.89 - Other chest pain Status: Acute (3) Mixed hyperlipidemia: Code(s): E78.2 - Mixed hyperlipidemia Status: Acute (4) Left ventricular hypertrophy: Code(s): I51.7 - Cardiomegaly Status: Acute Plan This is a very pleasant 54-year-old female with history of paroxysmal atrial fibrillation, left ventricular hypertrophy, hyperlipidemia, and prediabetes who presented to the emergency department via private vehicle with complaints of chest pain and racing heart. She was diagnosed with atrial fibrillation in October 2023 and she has been on a baby aspirin and metoprolol succinate 25 mg daily since that time. Echocardiogram on initial workup showed no obvious wall motion abnormalities, an ejection fraction of 65 to 70%, moderate left ventricular hypertrophy, and mild mitral valve regurgitation. Coronary CTA in December 2023 showed normal coronary arteries with a calcium score of 0 and more recently she had a cardiac MRI which showed left ventricular hypertrophy and she has been referred to Dr. Fred Thomas at [place] with an upcoming appointment sometime in January. In any event, she estimates that she goes into rapid atrial fibrillation every couple of months. Last evening, approximally 1.5 hours prior to arrival to the ED, she was simply sitting down chatting with her when she developed sudden onset of racing heart, chest pressure, and shortness of breath simply while sitting down. The symptoms are similar to prior episodes when she has been in rapid atrial fibrillation however the chest pressure seems to be much more intense and she states it feels as though “several elephants are dancing on my chest.” She denies fever, cold and flu symptoms, exertional chest pain, syncope, near syncope, abdominal pain, nausea, vomiting, sweats, edema, and calf pain. In the ED: Vital signs on arrival include a heart rate of 147 and a blood pressure of 122/84. Labs were significant for a WBC count of 8.3, hemoglobin 13.3, platelets 258, lipase 316, TSH 5.90, troponin 0.012. EKG showed rapid atrial fibrillation with a rate of [address] depressions in lead 1, 2, V5, and V6. She was given metoprolol tartrate 5 mg IV nondenominational of normal sinus rhythm. She was also given enoxaparin 1 mg/kg and she is being admitted in this setting for close monitoring. cardiology has been consulted. awaiting their recomemndations. chadsvasc score is 0. AFib with RVR eleevated troponin: Initially negative at 0.012 elevated to 0.314. EKG with some ST depressions likely from AFib with RVR. However continue on Lovenox until cardiac evaluation. Last echo 11/04 with normal EF at 65-70% moderately increased left ventricular wall thickness. Mild pulmonary hypertension mild MR trace TR. Will repeat EKG and troponin. Continue on aspirin and atorvastatin. Continue metoprolol 25 mg daily. If troponin continues to rise will continue Lovenox until cardiac evaluation npo until further evaluation by cardiology. back to sinus rhythm Moderate mitral regurgitation Severe concentric left ventricular hypertrophy MRI negative for infiltrative disease Subjective Date/time seen: 11/26/24 08:37 Interval history: No overnight events no new complaints. Remains in sinus rhythm Review of Systems Review of Systems: All systems reviewed & are unremarkable except as noted in HPI and below Exam Narrative: General: Nontoxic-appearing female sitting at the side of the bed in no distress. HEENT: PERRL, EOMI. Sclera anicteric. Oral mucosa moist. Neck: Supple. Respiratory: Lungs are clear to auscultation bilaterally. Cardiovascular: Regular rate and rhythm with S1-S2. Gastrointestinal: Abdomen is soft, obese, nontender, and nondistended with positive bowel sounds. Skin: Warm and dry. No rash or lesions on limited exam. Extremities: No cyanosis or clubbing. Mild lamar ankle edema bilaterally. Neurological: Alert. Cranial nerves 2-12 are grossly intact. No gross focal deficits to casual conversation. Psychiatric: Pleasant and cooperative with normal mood and affect. Judgment and insight intact. Objective Data Vital Signs Vital Signs: Vital Signs - 24 hr 11/25/24 22:44 11/25/24 22:45 11/25/24 22:46 Temperature Pulse Rate 147 H 147 H 130 H Respiratory Rate 16 16 18 Blood Pressure 122/84 131/112 H Pulse Oximetry 97 98 98 Oxygen Delivery 11/25/24 23:00 11/25/24 23:04 11/25/24 23:10 Temperature Pulse Rate 150 H 136 H 123 H Respiratory Rate 20 19 Blood Pressure 96/82 L Pulse Oximetry 96 97 Oxygen Delivery 11/25/24 23:13 11/25/24 23:15 11/25/24 23:26 Temperature Pulse Rate 140 H 140 H 135 H Respiratory Rate 18 16 12 Blood Pressure 131/112 H 100/84 Pulse Oximetry 99 98 Oxygen Delivery Room Air 11/25/24 23:27 11/26/24 01:15 11/26/24 04:49 Temperature 98.2 F 98.2 F Pulse Rate 140 H 72 71 Respiratory Rate 18 18 Blood Pressure 150/85 H 160/75 H Pulse Oximetry 99 100 Oxygen Delivery 11/26/24 06:00 11/26/24 07:54 Temperature 97.5 F L Pulse Rate 71 68 Respiratory Rate 24 H Blood Pressure 133/75 Pulse Oximetry 98 Oxygen Delivery Intake/Output Intake/Output: Intake & Output 11/23/24 11/24/24 11/25/24 11/26/24 23:59 23:59 23:59 23:59 Intake Total 240 Balance 240 Meds/Results Medications: Active Medications Generic Name Dose Route Start Last Admin Trade Name Freq PRN Reason Stop Dose Admin Acetaminophen 650 mg 11/26/24 00:17 Acetaminophen 325 Mg Tablet PO Q6H PRN Mild Pain (1-3) or Fever Metoprolol Tartrate 5 mg 11/25/24 22:48 11/25/24 23:27 Metoprolol Tartrate Inj 5 Mg/5 Ml Vial IV PUSH 5 mg Q5M PRN Administration Afib RVR HR >110 Morphine Sulfate 2 mg 11/26/24 00:17 Morphine Sulfate (*Crx) 2 Mg/Ml Inj IV PUSH Q4H PRN Pain Rated 7-10 Ondansetron HCl 4 mg 11/26/24 00:18 Ondansetron Inj 4 Mg/2 Ml Vial IV PUSH Q4H PRN Nausea Perflutren Lipid Microsphere 0 ml 11/26/24 00:17 Perflutren Lipid Microspheres 1.5 Ml Vial Diluted To 10 Ml Total Volume IV PUSH 11/29/24 00:17 ONCE PRN adequate visualization Protocol Labs Labs: Laboratory Results - last 24 hr 11/25/24 11/26/24 11/26/24 23:01 05:29 05:30 WBC 8.3 RBC 4.80 Hgb 13.3 Hct 41.2 MCV 85.8 MCH 27.7 MCHC 32.3 RDW 14.1 Plt Count 258 MPV 9.8 Immature Gran % (Auto) 0.2 Neut % (Auto) 60.5 Lymph % (Auto) 27.2 Robertson % (Auto) 9.3 H Eos % (Auto) 2.2 Baso % (Auto) 0.6 Lymph # (Auto) 2.24 Robertson # (Auto) 0.8 H Eos # (Auto) 0.2 Baso # (Auto) 0.1 Abs Immat Gran (auto) 0.02 Absolute Neuts (auto) 5.0 Absolute Nucleated RBC 0.000 Nucleated RBC % 0.0 PT 13.5 INR 1.0 APTT 27.8 Sodium 137 140 Potassium 4.1 3.9 Chloride 103 108 H Carbon Dioxide 27 24 Anion Gap 7 8 BUN 21 H 20 H Creatinine 0.82 0.66 L Estim Creat Clear Calc Not Reportable 121 Estimated GFR > 60 > 60 Glucose 129 H 101 Calcium 8.9 8.6 Total Bilirubin 0.7 AST 47 H ALT 41 H Alkaline Phosphatase 77 Troponin I 0.012 0.314 H* D Total Protein 8.0 Albumin 4.3 Triglycerides 167 H Cholesterol 149 LDL Cholesterol Direct 67 HDL Direct 49 Lipase 316 H 272 TSH (Reflex) 5.900 H Free T4 1.07 Total T3 1.47
--- NOTE | 2024-11-26 09:33 | P.DS_ITS ---
DS: Admitting Diagnosis Discharge Date 11/26/2024 Admitting Diagnosis AFib with RVR DS: Discharge Diagnosis Discharge Diagnosis (1) Atrial fibrillation with rapid ventricular response: Code(s): I48.91 - Unspecified atrial fibrillation Status: Acute (2) Chest pressure: Code(s): R07.89 - Other chest pain Status: Acute (3) Mixed hyperlipidemia: Code(s): E78.2 - Mixed hyperlipidemia Status: Acute (4) Left ventricular hypertrophy: Code(s): I51.7 - Cardiomegaly Status: Acute DS: Summary Hospital Course Hospital Course: This is a very pleasant 54-year-old female with history of paroxysmal atrial fi brillation, left ventricular hypertrophy, hyperlipidemia, and prediabetes who presented to the emergency department via private vehicle with complaints of chest pain and racing heart. She was diagnosed with atrial fibrillation in October 2023 and she has been on a baby aspirin and metoprolol succinate 25 mg daily since that time. Echocardiogram on initial workup showed no obvious wall motion abnormalities, an ejection fraction of 65 to 70%, moderate left ventricular hypertrophy, and mild mitral valve regurgitation. Coronary CTA in December 2023 showed normal coronary arteries with a calcium score of 0 and more recently she had a cardiac MRI which showed left ventricular hypertrophy and she has been referred to Dr. Fred Thomas at [facility] with an upcoming appointment sometime in January. In any event, she estimates that she goes into rapid atrial fibrillation every couple of months. Last evening, approximally 1.5 hours prior to arrival to the ED, she was simply sitting down chatting with her when she developed sudden onset of racing heart, chest pressure, and shortness of breath simply while sitting down. The symptoms are similar to prior episodes when she has been in rapid atrial fibrillation however the chest pressure seems to be much more intense and she states it feels as though “several elephants are dancing on my chest.” She denies fever, cold and flu symptoms, exertional chest pain, syncope, near syncope, abdominal pain, nausea, vomiting, sweats, edema, and calf pain. In the ED: Vital signs on arrival include a heart rate of 147 and a blood pressu re of 122/84. Labs were significant for a WBC count of 8.3, hemoglobin 13.3, platelets 258, lipase 316, TSH 5.90, troponin 0.012. EKG showed rapid atrial fibrillation with a rate of [address] depressions in lead 1, 2, V5, and V6. She was given metoprolol tartrate 5 mg IV restorationist of normal sinus rhythm. She was also given enoxaparin 1 mg/kg and she is being admitted in this setting for close monitoring. cardiology has been consulted. awaiting their recomemndations. chadsvasc score is 0. AFib with RVR eleevated troponin: Initially negative at 0.012 elevated to 0.314. EKG with some ST depressions likely from AFib with RVR. However continue on Lovenox until cardiac evaluation. Last echo 11/04 with normal EF at 65-70% moderately increased left ventricular wall thickness. Mild pulmonary hypertension mild MR trace TR. Will repeat EKG and troponin. Continue on aspirin and atorvastatin. Continue metoprolol 25 mg daily. If troponin continues to rise will continue Lovenox until cardiac evaluation Cardiology evaluated. Up titrate metoprolol to 50 mg. Follow-up as an outpatient basis. back to sinus rhythm Moderate mitral regurgitation Severe concentric left ventricular hypertrophy MRI negative for infiltrative disease Time Spent with Patient Time attestation: Total time spent providing and/or coordinating discharge services: Exam Narrative: General: Nontoxic-appearing female sitting at the side of the bed in no distress. HEENT: PERRL, EOMI. Sclera anicteric. Oral mucosa moist. Neck: Supple. Respiratory: Lungs are clear to auscultation bilaterally. Cardiovascular: Regular rate and rhythm with S1-S2. Gastrointestinal: Abdomen is soft, obese, nontender, and nondistended with positive bowel sounds. Skin: Warm and dry. No rash or lesions on limited exam. Extremities: No cyanosis or clubbing. Mild lamar ankle edema bilaterally. Neurological: Alert. Cranial nerves 2-12 are grossly intact. No gross focal deficits to casual conversation. Psychiatric: Pleasant and cooperative with normal mood and affect. Judgment and insight intact. DS: Data Data Completed and Pending Labs on day of discharge: Labs from last 24 hours 11/26/24 11/26/24 11/26/24 09:01 05:30 05:29 WBC RBC Hgb Hct MCV MCH MCHC RDW Plt Count MPV Immature Gran % (Auto) Neut % (Auto) Lymph % (Auto) [place] % (Auto) Eos % (Auto) Baso % (Auto) Lymph # (Auto) [place] # (Auto) Eos # (Auto) Baso # (Auto) Abs Immat Gran (auto) Absolute Neuts (auto) Absolute Nucleated RBC Nucleated RBC % PT INR APTT Sodium 140 Potassium 3.9 Chloride 108 H Carbon Dioxide 24 Anion Gap 8 BUN 20 H Creatinine 0.66 L Estim Creat Clear Calc 121 Estimated GFR > 60 Glucose 101 Calcium 8.6 Total Bilirubin AST ALT Alkaline Phosphatase Troponin I Pending 0.314 H* D Total Protein Albumin Triglycerides 167 H Cholesterol 149 LDL Cholesterol Direct 67 HDL Direct 49 Lipase 272 TSH (Reflex) Free T4 Total T3 11/25/24 23:01 WBC 8.3 RBC 4.80 Hgb 13.3 Hct 41.2 MCV 85.8 MCH 27.7 MCHC 32.3 RDW 14.1 Plt Count 258 MPV 9.8 Immature Gran % (Auto) 0.2 Neut % (Auto) 60.5 Lymph % (Auto) 27.2 [place] % (Auto) 9.3 H Eos % (Auto) 2.2 Baso % (Auto) 0.6 Lymph # (Auto) 2.24 [place] # (Auto) 0.8 H Eos # (Auto) 0.2 Baso # (Auto) 0.1 Abs Immat Gran (auto) 0.02 Absolute Neuts (auto) 5.0 Absolute Nucleated RBC 0.000 Nucleated RBC % 0.0 PT 13.5 INR 1.0 APTT 27.8 Sodium 137 Potassium 4.1 Chloride 103 Carbon Dioxide 27 Anion Gap 7 BUN 21 H Creatinine 0.82 Estim Creat Clear Calc Not Reportable Estimated GFR > 60 Glucose 129 H Calcium 8.9 Total Bilirubin 0.7 AST 47 H ALT 41 H Alkaline Phosphatase 77 Troponin I 0.012 Total Protein 8.0 Albumin 4.3 Triglycerides Cholesterol LDL Cholesterol Direct HDL Direct Lipase 316 H TSH (Reflex) 5.900 H Free T4 1.07 Total T3 1.47 Discharge Plan Discharge Attending physician on discharge: Bertin Hayes Consulting providers: Noemi Lomeli Discharging Clinician: Bertin Hayes Anticipated Discharge Date/Time: 11/26/24 09:34 Patient Disposition: Home Activity: as tolerated Diet: heart healthy Patient Instructions: Antibiotic Form, Blood Thinners (GEN) Patient Language: Malay Stand Alone Forms: General Discharge Information Follow-up/Referrals: UNKNOWN,DOCTOR [Primary Care Provider] - 1 Week Discharge Medications: New metoprolol succinate 50 mg tablet extended release 24 hr 50 mg PO DAILY Qty: 30 0RF Continued multivitamin Tablet 1 tablet PO DAILY calcium carbonate [Calcium Antacid] 400 mg calcium (1,000 mg) tablet,chewable 400 mg PO DAILY Zyrtec 10 mg capsule 10 mg PO DAILY atorvastatin 40 mg tablet 40 mg PO HS Qty: 30 0RF melatonin 5 mg tablet 5 mg PO HS PRN (Reason: sleep) aspirin 81 mg capsule 81 mg PO DAILY Qty: 90 3RF montelukast 10 mg tablet 10 mg PO DAILY Qty: 90 1RF Rx Instructions: Take 1 tablet by mouth once daily Discontinued metoprolol succinate 25 mg tablet extended release 24 hr 25 mg PO DAILY Qty: 30 1RF Date of admission: 11/26/24 00:18 Primary Care Provider: UNKNOWN,DOCTOR Admitting Provider: Kimberly Parker Attending physician on admission: Kimberly Parker Condition: Stable
[2024-11-26 09:41] LABS: Troponin I 0.457 ng/mL (0.000-0.034)
[2024-11-26 10:00] VITALS: PULSE 64
[2024-11-26] MEDS: ASPIRIN 81 MG ENTERIC TABLET PO (10:00)
[2024-11-26] MEDS: METOPROLOL SUCCINATE EXT REL 50 MG TABCR PO (10:00)
== END 2024-11-26 11:11 | disposition home or self-care (01) ==
LOC: ANHED 11-26 00:59 → ANHIMU 11-26 04:17
PROVIDERS: Physician Assistant; Admitting Provider Internal Medicine; Emergency Provider Student in an Organized Health Care Education/Training Program; Visit Provider Internal Medicine
DX: I48.91 Unspecified atrial fibrillation (principal); R07.89 Other chest pain; E78.2 Mixed hyperlipidemia; I51.7 Cardiomegaly; R79.89 Other specified abnormal findings of blood chemistry; R73.03 Prediabetes; N95.9 Unspecified menopausal and perimenopausal disorder; E66.01 Morbid (severe) obesity due to excess calories; Z68.41 Body mass index [BMI] 40.0-44.9, adult; Z98.890 Other specified postprocedural states; Z79.82 Long term (current) use of aspirin; Z79.899 Other long term (current) drug therapy
CPT/HCPCS: 36415; 80048; 80053; 80061; 83690; 84439; 84443; 84480; 84484; 85025; 85610; 85730; 93005; 96372; 96374; 99285; A9270; G0378; J1650; J7120

== ENCOUNTER 2024-12-12 11:20 | Emergency (ER) | payer OTHER, SELFPAY ==
--- NOTE | ~2024-12-12 | XR_ITS ---
EXAMINATION: XR chest 1V portable DATE: 12/12/2024 12:00 INDICATION: Chest pain. Atrial fibrillation. TECHNIQUE: frontal view of the chest was obtained. COMPARISON: Chest radiograph dated and CT dated 11/08/2023 FINDINGS: The lungs are clear with no focal airspace opacities, pulmonary edema, pleural effusion or pneumothor ax. Mild cardiomegaly. Enlargement of the left and right pulmonary arteries suggestive of pulmonary a rterial hypertension. Mild lower thoracic levocurvature. IMPRESSION: 1. Mild cardiomegaly and enlargement of the central pulmonary arteries consistent with pulmonary tierra rial hypertension. Reviewed, dictated and finalized at location A. IMPRESSION: 1. Mild cardiomegaly and enlargement of the central pulmonary arteries consiste nt with pulmonary arterial hypertension.
[2024-12-12 11:32] VITALS: BP 114/85; PULSE 133; RESP 16; TEMP 36.4; O2SAT 98
[2024-12-12 11:36] VITALS: PULSE 140
--- NOTE | 2024-12-12 11:40 | ECG_ITS ---
Test Date: 2024-12-12 11:56:25 Measurements Intervals [place] Rate: 120 P: 0 CO: 0 QRS: 20 QRSD: 91 T: 128 QT: 310 QTc: 438 Interpretive Statements ATRIAL FIBRILLATION WITH RAPID VENTRICULAR RESPONSE DELAYED PRECORDIAL R/S TRANSITION LEFT VENTRICULAR HYPERTROPHY WITH ST-T CHANGE ST-T WAVE ABNORMALITY IN HIGH LATERAL LEADS- CONSIDER ISCHEMIA PEAKED T WAVES- CONSIDER HYPERKALEMIA BASELINE ARTIFACT- I, II, AVR ABNORMAL ECG Compared to ECG 11/25/2024 22:38:01 HEART RATE HAS DECREASED PEAKED T WAVES NOW PRESENT Electronically Signed On 12-12-2024 19:38:40 CDT by Robinson Sandoval D.O.
[2024-12-12 11:54] LABS: Basophils Absolute Auto 0.1 K/mm3 (0.0-0.1); Basophils Percent Auto 0.6 % (0.2-1.2); Eosinophils Absolute Auto 0.2 K/mm3 (0-0.3); Eosinophils Percent Auto 2.3 % (0-4.4); Hematocrit 42.8 % (37.0-47.0); Hemoglobin 14.1 g/dL (12.0-15.0); Immature Granulocyte Absolute 0.02 K/mm3 (0.00-0.031); Immature Granulocyte Percent A 0.3 % (0-0.5); Lymphocytes Absolute Auto 1.58 K/mm3 (0.9-3.2); Lymphocytes Percent Auto 20.2 % (18.3-44.2); Mean Corpuscular HGB Conc 32.9 g/dl (32-36); Mean Corpuscular Hemoglobin 27.9 pg (26-34); Mean Corpuscular Volume 84.8 fl (80-100); Mean Platelet Volume 9.8 fl (7.4-10.4); Monocytes Absolute Auto 0.6 K/mm3 (0.1-0.6); Monocytes Percent Auto 7.4 % (2.6-8.5); Neutrophils Absolute Auto 5.4 K/mm3 (1.3-6.7); Neutrophils Percent Auto 69.2 % (45.5-73.1); Platelet Count Result 279 k/mm3 (150-375); Red Blood Count 5.05 M/mm3 (4.2-5.4); Red Cell Distribution Width 14.5 % (11.5-14.5); White Blood Count 7.8 K/mm3 (4.5-10.0)
[2024-12-12 12:04] LABS: Alanine Aminotransferase 48 U/L (6-35); Albumin Level 4.4 g/dL (3.5-5.1); Alkaline Phosphatase 83 U/L (38-126); Anion Gap 9 mmol/L (4-12); Aspartate Amino Transferase 39 U/L (14-36); Bilirubin,Total 0.8 mg/dL (0.2-1.3); Blood Urea Nitrogen 16 mg/dL (7-17); Calcium 9.8 mg/dL (8.4-10.2); Carbon Dioxide 25 mmol/L (22-30); Chloride 106 mmol/L (98-107); Estimated CRCL calculation 118 ml/min; Estimated Glomerular Filt Rate > 60; Glucose 115 mg/dL (65-110); Lipase 195 U/L (23-300); Potassium 4.2 mmol/L (3.4-5.0); Sodium 140 mmol/L (137-145)
[2024-12-12 12:05] LABS: Prothrombin Time 13.6 Seconds (11.1-14.7)
[2024-12-12 12:06] LABS: Partial Thromboplastin Time 28.1 Seconds (22.3-36.8)
[2024-12-12 12:16] LABS: Troponin I < 0.012 ng/mL (0.000-0.034)
[2024-12-12 13:41] VITALS: BP 122/80; PULSE 60; RESP 17; O2SAT 100
[2024-12-12 14:44] LABS: Magnesium 2.3 mg/dL (1.6-2.3)
[2024-12-12 14:57] LABS: Troponin I < 0.012 ng/mL (0.000-0.034)
[2024-12-12 15:36] VITALS: BP 125/86; PULSE 62; RESP 19; O2SAT 100
--- OUTSIDE RECORDS SUMMARY | 2024-12-12 18:00 | XMS_ITS | Clinical Summary ---
Author Organization [facility] Address [address] [place] [address] Care Team Providers Care Yard Hostler Name Role Phone Ray Turner DO Primary Care Provider Source Comments [facility],non-owned Affiliates and Associated Physician Practices is amultiple site organization consisting of ambulatory clinics and hospital sitesin [place], [place], [place] and [place]. This disclosure is being madepursuant to the Care Everywhere program and may not contain all information available regarding this patient. 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
--- OUTSIDE RECORDS SUMMARY | 2024-12-12 18:00 | XMS_ITS | Clinical Summary ---
Author Organization [facility] – [place] [address] Address [address] [place] [phone] Care Team Providers Care Thread Puller Name Role Phone Brooklyn Meng NP Primary Care Provider [phone] Allergies No known active allergies Medications aspirin 81 mg enteric coated tablet Take 1 tablet (81 mg total) by mouth daily 11/10/19 24 Active multivit with calcium,iron,min (MULTIPLE VITAMIN, WOMENS ORAL) Take by mouth Active calcium carbonate-vitamin D3 1,250 mg (500 mg elemental)-125 unit per tablet Take 1 tablet by mouth daily Active atorvastatin (LIPITOR) 40 mg tabletIndications :Hyperlipidemia, unspecified hyperlipidemia type Take 1 tablet (40 mg total) by mouth every other day at bedtime. 12/04/19 25 Active metoprolol XL (TOPROL-XL) 50 mg extended release tabletIndications :PAF (paroxysmal atrial fibrillation) (HCC) Take 1 tablet (50 mg total) by mouth daily 12/04/19 25 Active tirzepatide, weight loss, (Zepbound) 2.5 mg/0.5 mL pen injectorIndicatio ns:Weight Loss Management for Obese Patient (BMI >= 30),obstructive sleep apnea syndrome Inject 0.5 mL (2.5 mg total) under the skin every 7 days 2 mL 12/04/19 25 Active tirzepatide, weight loss, (Zepbound) 5 mg/0.5 mL pen injectorIndicatio ns:Weight Loss Management for Obese Patient (BMI >= 30),obstructive sleep apnea syndrome Inject 0.5 mL (5 mg total) under the skin every 7 days 2 mL 3 12/04/19 Active montelukast (Singulair) 10 mg tabletIndications :Smell disorder Take 1 tablet (10 mg total) by mouth nightly 90 tablet 3 12/04/19 25 Active cetirizine (ZyrTEC) 10 mg tabletIndications :Smell disorder Take 1 tablet (10 mg total) by mouth daily 90 tablet 3 12/04/19 25 Active montelukast (SINGULAIR) 10 mg tablet Take 1 tablet (10 mg total) by mouth daily 11/05/19 025 Discontinued(Herminio willis Reported) metoprolol XL (TOPROL-XL) 25 mg extended release tabletIndications :Paroxysmal atrial fibrillation (HCC) Take 1 tablet (25 mg total) by mouth daily 90 tablet 3 01/08/20 025 Discontinued atorvastatin (LIPITOR) 40 mg tabletIndications :Hyperlipidemia, unspecified hyperlipidemia type Take 1 tablet (40 mg total) by mouth nightly at bedtime. 90 tablet 3 01/08/20 025 Discontinued cetirizine (ZyrTEC) 10 mg tablet Take 1 tablet (10 mg total) by mouth 025 Discontinued(Re order) montelukast (Singulair) 10 mg tablet Take 1 tablet (10 mg total) by mouth nightly 025 Discontinued(Re order) Active Problems Problem Noted Date Diagnosed Date MIREYA (obstructive sleep apnea) 12/03/2024 Assessment & Plan (12/07/2024 9:44 AM CDT): Orders: tirzepatide, weight loss, (Zepbound) 2.5 mg/0.5 mL pen injector; Inject 0.5 mL (2.5 mg total) under the skin every 7 days tirzepatide, weight loss, (Zepbound) 5 mg/0.5 mL pen injector; Inject 0.5 mL (5 mg total) under the skin every 7 days Morbid obesity with BMI of 40.0-44.9, adult 11/12 Assessment & Plan (12/07/2024 9:44 AM CDT): Struggles with weight management, impacting cardiovascular health. Previous attempts at weight loss medications hindered by insurance coverage. Discussed injectable weight loss medications like Wegovy and Zepbound, which provide cardiovascular benefits but are expensive. Concerns about long-term use and potential weight regain after discontinuation. Emphasized lifestyle changes, including diet and exercise, as essential components of weight management. Zepbound preferred due to fewer side effects and greater weight loss, but insurance coverage is uncertain. - Attempt to obtain insurance approval for Zepbound for weight loss and cardiovascular risk reduction. - If Zepbound is not approved, attempt to obtain insurance approval for Wegovy. - Refer to a dietitian for nutritional counseling and support. - Discuss non-stimulant weight loss medications if injectables are not approved. - Consider referral to metabolic clinic at [facility] if needed. Orders: tirzepatide, weight loss, (Zepbound) 2.5 mg/0.5 mL pen injector; Inject 0.5 mL (2.5 mg total) under the skin every 7 days tirzepatide, weight loss, (Zepbound) 5 mg/0.5 mL pen injector; Inject 0.5 mL (5 mg total) under the skin every 7 days Biatrial enlargement 09/02/2024 LVH (left ventricular hypertrophy) 09/02/2024 Assessment & Plan (12/07/2024 9:44 AM CDT): Left ventricular hypertrophy identified on recent heart MRI. Referred to Dr. Thomas for further evaluation. Exercise stress test scheduled for the . - Proceed with scheduled exercise stress test. - Follow up with Dr. Thomas for further evaluation. Hyperlipidemia 09/02/2024 Assessment & Plan (12/07/2024 9:44 AM CDT): Continue Lipitor 40 mg every other day. Follow recommendations from Cardiology Assessment & Plan (12/07/2024 9:44 AM CDT): Orders: atorvastatin (LIPITOR) 40 mg tablet; Take 1 tablet (40 mg total) by mouth every other day at bedtime. Paroxysmal atrial fibrillation 09/02/2024 Assessment & Plan (12/07/2024 9:44 AM CDT): Recent episode of atrial fibrillation requiring brief hospitalization. Symptoms included chest pressure and irregular heart rate. Increased medication dosage led to symptomatic improvement. She can identify AFib episodes by symptoms. Concerns about potential future need for ablation. Discussed weight loss as a potential factor in reducing AFib episodes, though no direct correlation is established. Emphasized risk of asymptomatic AFib due to rate control medications, which can be dangerous without anticoagulation. - Obtain records from recent hospitalization, including labs and EKG. - Continue current medication regimen for AFib. - Discuss potential future need for ablation with bobbin fixer Orders: metoprolol XL (TOPROL-XL) 50 mg extended release tablet; Take 1 tablet (50 mg total) by mouth daily Systolic ejection murmur 09/02/2024 Assessment & Plan (12/07/2024 9:44 AM CDT): Secondary to mitral regurgitation, 2/6 Resolved Problems Problem Noted Date Diagnosed Date Resolved Date Hypersomnolence 09/02/2024 12/03/2024 Severe obesity 09/02/2024 12/03/2024 Body mass index 40.0-44.9, adult ([facility]) 09/02/2024 12/03/2024 Dizziness 01/30/2016 12/03/2024 Overview (10/24/2016): Dizziness Encounters Date Type Department Care Team Description 12/09/2024 8:30 AM CDT Office Visit [facility] [place] [facility] [address] [place] [phone] Suhas Sanderson MD Hypersomnia with sleep apnea (Primary Dx); Obstructive sleep apnea syndrome; Morbid obesity with BMI of 40.0-44.9, adult ([facility]) 12/07/2024 Telephone [facility] Medical [facility] Primary Care at [address] [phone] Brooklyn Meng NP Zepbound -Plan exclusion ; PA for Zepbound 12/03/2024 2:00 PM CDT Office Visit [facility] Primary Care at [address] [phone] Brooklyn Meng NP Hyperlipidemia, unspecified hyperlipidemia type (Primary Dx); Morbid obesity with BMI of 40.0-44.9, adult (HCC); Encounter for immunization; MIREYA (obstructive sleep apnea); Smell disorder; Systolic ejection murmur; PAF (paroxysmal atrial fibrillation) (HCC); LVH (left ventricular hypertrophy); Hyperlipidemia LDL goal <100 12/01/2024 Orders Only [facility] Medical [facility] Cardiology [address] [place] [address] [place] [phone] Noemi Lomeli MD 11/29/2024 Telephone [facility] Cardiology [address] [place] [address] Advanced Medicine 8th [place] [address] [place] [address] Fred Thomas MD 11/15/2024 Telephone [facility] Cardiology [address] [place] [address] [facility] 8th [place] [address] [place] [address] Fred Thomas MD 10/25/2024 Telephone [facility] Cardiology [address] [place] [address] [facility] 8th [place] [address] [place] [address] Mera Nicole 10/22/2024 Telephone [facility] Cardiology [address] [place] [address] [place] [phone] Jonnie Boswell MD 10/22/2024 Results Follow-Up [facility] Group Cardiology at [address] [place] [phone] Jonnie Boswell MD MRI Cardiac M&F W WO Contrast 10/21/2024 12:57 PM CDT - 10/21/2024 11:59 PM CDT Hospital Encounter [facility] [address] [place] [phone] LVH (left ventricular hypertrophy) Discharge Disposition: Discharge to home or self care 10/01/2024 Telephone [facility] Cardiology [address] [place] [address] [place] [phone] Jonnie Boswell MD 10/01/2024 Results Follow-Up [facility] Cardiology at [address] [place] [address] Jonnie Boswell MD Transthoracic Echo (TTE) Complete W Doppler/CF 09/30/2024 11:00 AM CDT Ancillary Procedure [facility] Cardiology at [place] [address] [facility] [address] [place] [address] PAF (paroxysmal atrial fibrillation) (HCC); LVH (left ventricular hypertrophy); Biatrial enlargement; Systolic ejection murmur 09/20/2024 10:28 AM CDT - 09/20/2024 1:24 PM CDT Emergency [facility] Emergency Department [address] [place] [address] Adolph Palacios MD Atrial fibrillation with rapid ventricular response (HCC) (Primary Dx) Discharge Disposition: Discharge to home or self care 09/16/2024 Results Follow-Up [facility] Cardiology [address] [facility] [address] [address] Jonnie Boswell MD Portable/Home Sleep Study 09/15/2024 8:00 AM ONSITE CASE MANAGER - 09/15/2024 11:59 PM ONSITE CASE MANAGER Hospital Encounter [facility] [address] [place] [address] Hypersomnolence Discharge Disposition: Discharge to home or self care from Last 3 Months Immunizations Immunization Administration Dates Next Due Influenza, Quadrivalent, Gladys l Culture-based MDCK, Preservative Free, Antibiotic Free, Intramuscular 05/12/2023,06/18/2022,05/05/2020 Influenza, Quadrivalent, Spl it, Preservative Free, Intramuscular 05/02/2021 Tdap 12/03/2024 ZOSTER Recombinant 05/10/2022 Surgical History Surgery Date Site/Laterality Comments SECTION 2002, 2007 FOOT SURGERY 07/14/2001 - 07/13/2002 Bilateral Hammer toe surgery ABLATION x2 Medical History Medical History Date Comments Hx Other Medical Hx Other Medical Bilateral foot surgery Anxiety 1989 Dizziness 01/30/2016 Dizziness Family History Medical History Relation Name Comments [...] drink = 0.6 oz pur e alcohol) AUDIT-C Answer Date Recorded Q1: How often do you have a drink containing alc ohol? 2-4 times a month 12/03/2024 Q2: How many drinks containi ng alcohol do you have on a typical day when you are drinking? 1 or 2 12/03/2024 Q3: How often do you have si x or more drinks on one occasion? Never 12/03/2024 PHQ-2 Answer Date Recorded PHQ-2 Total Score (If total score is 3 or more points, staff should administer the PHQ-9) 0 12/03/2024 Personal Safety Answer Date Recorded Have you ever been in or are you currently in a harmful physical or emotional relationship or is someone making you feel afraid or unsafe? Denies 09/20/2024 Comments No Sex and Gender Information Value Date Recorded Sex Assigned at Not on file Legal Sex Female 4:09 AM ONSITE CASE MANAGER Gender Identity Female 03/30/2024 9:27 PM CDT Sexual Orientation Straight 03/30/2024 9: 27 PM CDT Obstetrics History Last Filed Vital Signs Vital Sign Reading Time Taken Comments Blood Pressure 128/84 12/09/2024 8:50 AM CDT Pulse 95 12/09/2024 8:50 AM CDT Temperature 37.1 C (98.8 F) 12/03/2024 2:04 PM CDT Respiratory Rate 16 12/03/2024 2:04 PM CDT Oxygen Saturation 66% 12/09/2024 8:50 AM CDT Inhaled Oxygen Concentration - - Weight 127 kg (280 lb) 12/03/2024 2:04 PM CDT Height 172.7 cm (5' 7.99) 12/09/2024 8:50 AM CD T Body Mass Index 42.57 12/03/2024 2:04 PM CDT Plan of Treatment Health Maintenance Due Date Last Done Comments Breast Cancer Screening-Mammogram 1970 Cervical Cancer Screening 1970 Colon Cancer Screening-Colonoscopy 1970 Regular Well Visit/Exam 18-64 1989 Pneumococcal vaccine <65 (1 of 2 - PCV) 1990 Zoster Vaccine (2 of 2) 07/05/2022 05/10/2022 Influenza Vaccine (Season Ended) 2025 05/12/2023, 06/18/2022, 05/02/2021, Additional history exists Covid-19 Vaccine ( season) 2025 05/12/2023, 06/18/2022, 06/09/2021, Additional history exists Postponed from 03/14/2024 (Patient declined, but will receive in the future) Depression Screening 12/03/2025 12/03/2024 DTaP/Tdap/Td Vaccine (2 - Td or Tdap) 12/03/2034 12/03/2024 Hepatitis B Screening Discontinued Hepatitis C Screening Discontinued Procedures Procedure Name Priority Date/Time Associated Diagnosis Comments CARDIOLOGY DOCUMENT SCAN Routine 11/26/2024 4:22 PM CDT MRI CARDIAC M&FUNC W WO CONTRAST Schedule [...] Hypersomnolence from Last 3 Months Results * Cardiology Document Scan (11/26/2024 4:22 PM CDT) Anatomical Region Laterality Modality Other [facility] [place] Lomeli MD CV CARDIAC SERVICES PRO CEDURES Final Result * MRI Cardiac M&F W WO Contrast [...] Jessica Rock M.D. us Jonnie Boswell MD IM MRI PROCEDURES Final Result * TRANSTHORACIC ECHO (TTE) COMPLETE W DOPPLER/CF WO CONTRAST (09/30/2024 12:00 PM CDT) LV EF 70-75 % CONS SCIMAGE Anatomical Region Laterality Modality Ultrasound 09/30/2024 11:1 2 AM CDT Narrative 09/30/2024 12:56 PM CDT [facility] Cardiology [address], [address], [place] [address] P:[phone] P:[phone] Echocardiographic Report Patient Name: ROMI BRADLEY : [...] FINDINGS: Interpretation Site: Exam was interpreted at [facility]. Left Ventricle: Normal left ventricular [...] Procedure Note Jonnie Boswell MD - 09/30/2024 [facility] Cardiology [facility], [address], [place] [address] P:[phone] P:[phone] Echocardiographic Report Patient Name: ROMI BRADLEY : [...] FINDINGS: Interpretation Site: Exam was interpreted at [facility]. Left Ventricle: Normal left ventricular [...] 12-LEAD (09/20/2024 1:52 PM CDT) Narrative [facility] - 09/20/2024 1:52 PM CDT Adolph Palacios [...] MD ECG ORDERABLES Final Re sult [facility] * Critical Care (09/20/2024 1:24 PM [...] 2020. Trop I hs delta 3 ng/L CERNER BJ Trop I hs interp Insignificant [facility] H Blood 09/20/2024 12:4 9 PM CDT 09/20/2024 1:21 PM CDT Adolph Palacios MD LAB BLOOD ORDERABLES Fin al Result [facility] Department [place] [address] * XR Chest Pa Lateral 2 Vw [...] 12-LEAD (09/20/2024 10:55 AM CDT) Narrative [facility] - 09/20/2024 10:55 AM CDT Adolph [...] ECG ORDERABLES Edited R esult - Final [facility] * (ABNORMAL) Urinalysis reflex to microscopic and culture Urine (09/20/2024 10:52 AM CDT) Color, ur Yellow Yellow Clarity, ur Turbid(A) Clear [facility] Specific gravity, ur 1.011 1.003 - 1.030 [facility] pH, urine 6.[address] [facility] Comment: Interpretive Data U rine pH is affected by diet, medications, systemic acid-base disturbances, and renal tubular function. pH may affect urinary stone formation. For example, urine pH below 6.0 may help reduce the tendency for calcium phosphate stones and pH greater than 6.0 may reduce the tendency for uric acid stone formation. Source: [facility] Current Interpretive Data was last revised on 2017 Protein, ur ql Trace Negative [facility] Glucose, ur ql Negative Negative [facility] Ketones, ur Negative Negative [facility] Bilirubin, ur Negative Negative [facility] Blood, ur Negative Negative [facility] Urobilinogen, ur <2.0 <2.0 mg/dL [facility] Nitrite, ur Negative Negative [facility] Leukocyte esterase, ur 3+(A) Negative [facility] UA reflex comment Reflex to microscopic UA will be performed. [facility] Urine 09/20/2024 10:5 2 AM CDT 09/20/2024 11:03 AM CDT Adolph Palacios MD LAB MICROBIOLOGY - GENER AL ORDERABLES Final Result Performing Organization Address [facility] de Phone Number [facility] [place] [address] * (ABNORMAL) Urinalysis, microscopic only (09/20/2024 10:52 AM CDT) WBC, ur 11-20(A) 0 - 5 /HPF RBC, ur 0-2 0 - 2 /HPF [facility] Epithelial cells, squamous, ur 21-50(A) 0 - 5 /HPF [facility] Comment:Suggestive of contam ination. Consider recollection by clean catch. Bacteria, ur 3+(A) [facility] Culture Reflex Comment Reflex to urine culture will be performed. [facility] Urine 09/20/2024 10:5 2 AM CDT 09/20/2024 11:03 AM CDT Adolph Palacios MD LAB URINE ORDERABLES Fin al Result Performing Organization Address [facility] de Phone Number [facility] [place] [address] * Urine culture Urine (09/20/2024 10:52 AM CDT) Report Final Report: Less than 100,000 colonies/mL (clinically insignificant growth based on current clinical standards) Organism (CLINICALLY INSIGNIFICANT GROWTH [facility] Urine 09/20/2024 10:5 2 AM CDT 09/20/2024 12:51 PM CDT Narrative [facility] - 09/21/2024 3:42 PM CDT Urine culture reflexed based upon urinalysis results. Testing performed by [facility] Microbiology Laboratory ([phone]) Adolph Palacios MD LAB MICROBIOLOGY - GENER AL ORDERABLES Final Result Performing Organization Address City/[facility] Co de Phone Number [facility] Department [place] [address] * Troponin I high-sensitivity series (baseline, 2hr, 4hr, 6hr) (09/20/2024 10:51 AM CDT) [facility] Trop I hs 8 <=17 ng/L Comment: Interpretive Data For further hscTnI resources including the diagnostic algorithm and an aid in interpretation, copy and paste this link: [email or web address].testcatalog.org/show/[email or web address] Current Interpretive Data last revised 2020. Blood 09/20/2024 10:5 1 AM CDT 09/20/2024 11:08 AM CDT Adolph Palacios MD LAB BLOOD ORDERABLES Fin al Result Performing Organization Address [facility] Co de Phone Number [facility] Department [place] [address] * eGFR (09/20/2024 10:51 AM CDT) [facility] eGFR >90 >=60 mL/min/1. 73 m2 Comment: [...] ORDERABLES Fin al Result Performing Organization Address City/State/ZIP Co nd Phone Number [facility] Department [place] [address] * (ABNORMAL) Pro B-type natriuretic peptide (09/20/2024 [...] Heart J. 2006:27:330-337. 2. Justina RW, Augusto REILLY. J. AM Guerita Cardiol: Cardiovasc Imag. 2009;2: 216- 225. Interpretive Data Last Revised Date: 2018. Blood 09/20/2024 10:5 1 AM CDT 09/20/2024 11:08 AM CDT Adolph Palacios MD LAB BLOOD ORDERABLES Fin al Result Performing Organization Address City/[facility]/ZIP Co de Phone Number [facility] [place] [address] * TSH (09/20/2024 10:51 AM CDT) [facility] Thyroid Stimulating Hormone 2.48 0.30 - 4.20 mcIUnit/mL Blood 09/20/2024 10:5 1 AM CDT 09/20/2024 11:08 AM CDT us Lanre Shafer MD LAB BLOOD ORDERABLES Fin al Result Performing Organization Address City/[facility]/ZIP Co de Phone Number [facility] [place] [address] * Basic metabolic panel (09/20/2024 10:51 AM CDT) Pathologist [facility] Sodium 141 135 - 145 mmol/L Potassium, pl 3.9 3.3 - 4.9 mmol/L [facility] Chloride 107 97 - 110 mmol/L [facility] CO2 25 22 - 32 mmol/L [facility] Anion gap 9 2 - 15 mmol/L [facility] BUN 19 6 - 25 mg/dL [facility] Creatinine 0.71 0.60 - 1.10 mg/dL [facility] Glucose 126 70 - 199 mg/dL [facility] Comment: Interpretive Data Fasting glucose >/= [...] 2022. Calcium 8.8 8.5 - 10.3 mg/dL [facility] Blood 09/20/2024 10:5 1 AM CDT 09/20/2024 11:08 AM CDT us Lanre Shafer MD LAB BLOOD ORDERABLES Fin al Result [facility] Department [place] [address] * Portable/Home Sleep Study (09/16/2024) Shannan Juan MD - 09/16/2024 HOME SLEEP APNEA TEST HISTORY: Romi Bradley is a 54 y.o. female who presents for Home sleep apnea test. (HSAT). Reason for sleep study: Snoring, atrial fibrillation [place] Sleepiness Score: 14 Weight: 284 lbs BMI: 41.94 PROCEDURE: This is a single night diagnostic study. This Home Sleep apnea Test (HSAT) utilized an unattended FDA approved RedDabKick apnea link home air portable monitoring device investigating for obstructive sleep apnea. The patient was provided instructions of the device and application by the registered radiologic technologist chief at the [facility]. This test was performed without a senior cytotechnologist in attendance. In this study, the following parameters were monitored: Emerald-nasal airflow, snoring, chest respiratory effort, abdominal respiratory effort, body position, movement, oxygen saturation, and heart rate. Respiratory events are scored according to the criteria from The [place] [employer] (AASM) Manual for [...] be taken into consideration. Shannan Nickerson MD [facility] Sleep Medicine Narrative Shannan Nickerson MD - 09/16/2024 Ocst is ready for review us Jonnie Boswell MD SLEEP CENTER ORDERABLES F inal Result from Last 3 Months Insurance [facility] [employer] * Guarantor: Romi Bradley Account Type Relation to Patient Date of Phone Billing Address Personal/Family Self [address] [place] [address] [facility] Care Teams Thread Puller Relationship Specialty Start Date End Date Brooklyn Meng NP [address] [place], [place] [id number] PCP - General Internal Medicine 12/03/24
--- OUTSIDE RECORDS SUMMARY | 2024-12-12 18:00 | XMS_ITS | Encounter Summary ---
Author Organization [facility] Healthcare Address [address] [place] [address] Care Team Providers Care Educational Resource Center Teacher Name Role Phone Hiren Nuno Primary Care Provider Brooklyn Meng NP Primary Care Provider [phone] Encounter Details Date Type Department Care Team (Late st Contact Info) Description 10/22/2024 Results Follow-Up [facility] Cardiology at [address] [place] [address] Niko Boswell MD [address] [place] [id number] MRI Cardiac M&F W WO Contrast Social History Tobacco Use Types Packs/Day Years [...] on file Legal Sex Female 4:09 AM CIRCULATION MANAGER Gender Identity Female 03/30/2024 9:27 PM CDT Sexual Orientation Straight 03/30/2024 9: 27 PM CDT documented as of this encounter Plan of Treatment Not on file documented as of this encounter Visit Diagnoses Not on filedocumented in this encounter Care Teams [facility] Teacher Relationship Specialty Start Date End Date Hiren Nuno PA [address] [place] [address] PCP - General Physician Manager Applied 09/12/23 12/02/24 Brooklyn Meng NP [address] [facility] [address] [place] [address] PCP - General Internal Medicine 12/03/24 documented as of this encounter
--- OUTSIDE RECORDS SUMMARY | 2024-12-12 18:00 | XMS_ITS | Referral Summary ---
Author Organization [address] Address [address] [place] [address] Care Team Providers Care Excelsior Picker Name Role Phone Brooklyn Meng NP Primary Care Provider Encounters Date Type Department Care Team Description 12/09/2024 8:30 AM CDT Office Visit [facility] [address] [place] [address] [address], [place] [address] Suhas Sanderson MD Hypersomnia with sleep apnea (Primary Dx); Obstructive sleep apnea syndrome; Morbid obesity with BMI of 40.0-44.9, adult ([facility]) 12/07/2024 Telephone [facility] at [address] [address] Brooklyn Meng NP Zepbound -Plan exclusion ; PA for Zepbound 12/03/2024 2:00 PM CDT Office Visit [facility] at [address] [address] Brooklyn Meng NP Hyperlipidemia, unspecified hyperlipidemia type (Primary Dx); Morbid obesity with BMI of 40.0-44.9, adult ([facility]); Encounter for immunization; MIREYA (obstructive sleep apnea); Smell disorder; Systolic ejection murmur; PAF (paroxysmal atrial fibrillation) ([facility]); LVH (left ventricular hypertrophy); Hyperlipidemia LDL goal <100 12/01/2024 Orders Only [facility] [address] [facility] [address] [place] [address] Noemi Lomeli MD 11/29/2024 Telephone [facility] Cardiology [address] [facility] Advanced Medicine 8th [place] [address] [place] [address] Fred Thomas MD 11/15/2024 Telephone [facility] Cardiology [address] [place] [address] Advanced Medicine 8th [place] [address] [place] [address] Fred Thomas MD 10/25/2024 Telephone [facility] Cardiology [address] [place] [address] [facility] 8th [place] [address] [place] [address] Mera Nicole 10/22/2024 Telephone [facility]iology [address] [place] [address] [address] [place] [phone] Jonnie Boswell MD 10/22/2024 Results Follow-Up [facility] Cardiology at [address] [place] [phone] Jonnie Boswell MD MRI Cardiac M&F W WO Contrast 10/21/2024 12:57 PM CDT - 10/21/2024 11:59 PM CDT Hospital Encounter [facility] [address] [place] [address] LVH (left ventricular hypertrophy) Discharge Disposition: Discharge to home or self care 10/01/2024 Telephone [facility] [address] [place] [address] [address] [place] [address] Jonnie Boswell MD 10/01/2024 Results Follow-Up [facility] Cardiology at [address] [place] [address] Jonnie Boswell MD Transthoracic Echo (TTE) Complete W Doppler/CF 09/30/2024 11:00 AM CDT Ancillary Procedure [facility] Cardiology at [address] [place] [address] PAF (paroxysmal atrial fibrillation) (HCC); LVH (left ventricular hypertrophy); Biatrial enlargement; Systolic ejection murmur 09/20/2024 10:28 AM CDT - 09/20/2024 1:24 PM CDT Emergency [facility] Emergency Department [address] [place] [address] Adolph Palacios MD Atrial fibrillation with rapid ventricular response (HCC) (Primary Dx) Discharge Disposition: Discharge to home or self care 09/16/2024 Results Follow-Up [facility] Cardiology [facility] [address] [address] Jonnie Boswell MD Portable/Home Sleep Study 09/15/2024 8:00 AM INSURANCE ACCOUNT MANAGER - 09/15/2024 11:59 PM INSURANCE ACCOUNT MANAGER Hospital Encounter [facility] [address] [place] [address] Hypersomnolence Discharge Disposition: Discharge to home or self care from Last 3 Months Allergies No known [...] (10 mg total) by mouth daily 11/05/19 24 025 Discontinued(Herminio willis Reported) metoprolol XL (TOPROL-XL) 25 mg extended release tabletIndications :Paroxysmal atrial fibrillation (HCC) Take 1 tablet (25 mg total) by mouth daily 90 tablet 3 01/08/20 24 025 Discontinued atorvastatin (LIPITOR) 40 mg tabletIndications :Hyperlipidemia, unspecified hyperlipidemia type Take 1 tablet (40 mg total) by mouth nightly at bedtime. 90 tablet 3 01/08/20 24 025 Discontinued cetirizine (ZyrTEC) 10 mg tablet [...] - Consider referral to metabolic clinic at [facility] if needed. Orders: tirzepatide, weight loss, (Zepbound) [...] Discuss potential future need for ablation with bulwark carpenter Orders: metoprolol XL (TOPROL-XL) 50 mg extended release tablet; Take 1 tablet (50 mg total) by mouth daily Systolic ejection murmur 09/02/2024 Assessment & Plan (12/07/2024 9:44 AM CDT): Secondary to mitral regurgitation, 2/6 Resolved Problems Problem Noted Date Diagnosed Date Resolved Date Hypersomnolence 09/02/2024 12/03/2024 Severe obesity 09/02/2024 12/03/2024 Body mass index 40.0-44.9, adult ([facility]) 09/02/2024 12/03/2024 Dizziness 01/30/2016 12/03/2024 Overview (10/24/2016): Dizziness Immunizations Immunization Administration Dates Next Due Influenza, Quadrivalent, Gladys l Culture-based MDCK, Preservative Free, Antibiotic Free, Intramuscular 05/12/2023,06/18/2022,05/05/2020 Influenza, Quadrivalent, Spl it, Preservative Free, Intramuscular 05/02/2021 Tdap 12/03/2024 ZOSTER Recombinant 05/10/2022 Social History Tobacco Use Types Packs/Day Years [...] on file Legal Sex Female 4:09 AM INSURANCE ACCOUNT MANAGER Gender Identity Female 03/30/2024 9:27 PM [...] 12/03/2024 2:04 PM CDT Plan of Treatment Not on [...] PM CDT) Anatomical Region Laterality Modality Other [facility] Indio Lomeli MD CV CARDIAC SERVICES PRO [...] AM CDT Narrative 09/30/2024 12:56 PM CDT [facility] Cardiology [address] [facility] [address], [address], [place] [address] P:[phone] P:[phone] Echocardiographic Report Patient Name: ROMI BRADLEY : [...] Site: Exam was interpreted at [facility]. Left Ventricle: Normal left ventricular systolic [...] Procedure Note Jonnie Boswell MD - 09/30/2024 [facility] Cardiology [address], [address], [place] [address] P:[phone] P:[phone] Echocardiographic Report Patient Name: ROMI BRADLEY : [...] Site: Exam was interpreted at [facility]. Left Ventricle: Normal left ventricular systolic [...] 12-LEAD (09/20/2024 1:52 PM CDT) Narrative [facility] - 09/20/2024 1:52 PM CDT Adolph Palacios [...] MD ECG ORDERABLES Final Re sult [facility] * Critical Care (09/20/2024 1:24 PM CDT) [...] Trop I hs delta 3 ng/L [facility] Trop I hs interp Insignificant [facility] Blood 09/20/2024 12:4 9 PM CDT 09/20/2024 1:21 PM CDT Adolph Palacios MD LAB BLOOD ORDERABLES Fin al Result [facility] Department [place] [address] * XR Chest Pa Lateral 2 Vw [...] ORDERABLES Edited R esult - Final [facility] * (ABNORMAL) Urinalysis reflex to microscopic and culture Urine (09/20/2024 10:52 AM CDT) Color, ur Yellow Yellow Clarity, ur Turbid(A) Clear [facility] Specific gravity, ur 1.011 1.003 - 1.030 [facility] pH, urine 6.0 [facility] Comment: Interpretive Data U rine pH is affected by diet, medications, systemic acid-base disturbances, and renal tubular function. pH may affect urinary stone formation. For example, urine pH below 6.0 may help reduce the tendency for calcium phosphate stones and pH greater than 6.0 may reduce the tendency for uric acid stone formation. Source: [facility] Current Interpretive Data was last revised on 2017 Protein, ur ql Trace Negative [facility] Glucose, ur ql Negative Negative [facility] Ketones, ur Negative Negative [facility] Bilirubin, ur Negative Negative [facility] Blood, ur Negative Negative [facility] Urobilinogen, ur <2.0 <2.0 mg/dL [facility] Nitrite, ur Negative Negative [facility] Leukocyte esterase, ur 3+(A) Negative [facility] UA reflex comment Reflex to microscopic UA will be performed. [facility] Urine 09/20/2024 10:5 2 AM CDT 09/20/2024 11:03 AM CDT us Adolph Palacios MD LAB MICROBIOLOGY - GENER AL ORDERABLES Final Result [facility] Department [place] [address] * (ABNORMAL) Urinalysis, microscopic only (09/20/2024 10:52 AM CDT) WBC, ur 11-20(A) 0 - 5 /HPF RBC, ur 0-2 0 - 2 /HPF [facility] Epithelial cells, squamous, ur 21-50(A) 0 - 5 /HPF [facility] Comment:Suggestive of contam ination. Consider recollection by clean catch. Bacteria, ur 3+(A) [facility] Culture Reflex Comment Reflex to urine culture will be performed. [facility] Urine 09/20/2024 10:5 2 AM CDT 09/20/2024 11:03 AM CDT Result [facility] Adolph Palacios MD LAB URINE ORDERABLES Fin al Result Performing Organization Address [facility] Co de Phone Number [facility] [place] [address] * Urine culture Urine (09/20/2024 10:52 AM CDT) Report Final Report: Less than 100,000 colonies/mL (clinically insignificant growth based on current clinical standards) Organism (CLINICALLY INSIGNIFICANT GROWTH [facility] Urine 09/20/2024 10:5 2 AM CDT 09/20/2024 12:51 PM CDT Narrative [facility] - 09/21/2024 3:42 PM CDT Urine culture reflexed based upon urinalysis results. Testing performed by [facility] ([phone]) Adolph Palacios MD LAB MICROBIOLOGY - GENER AL ORDERABLES Final Result Performing Organization Address [facility] de Phone Number [facility] [place] [address] * Troponin I high-sensitivity series (baseline, 2hr, 4hr, 6hr) (09/20/2024 10:51 AM CDT) Trop I hs 8 <=17 ng/L Comment: Interpretive Data For further hscTnI resources including the diagnostic algorithm and an aid in interpretation, copy and paste this link: https://bjhlab.testcatalog.org/show/hsTrop-1 Current Interpretive Data last revised 2020. Blood 09/20/2024 10:5 1 AM CDT 09/20/2024 11:08 AM CDT Result [facility] Adolph Palacios MD LAB BLOOD ORDERABLES Fin al Result Performing Organization Address [facility] Co de Phone Number [facility] [place] [address] * eGFR (09/20/2024 10:51 AM CDT) eGFR [...] LAB BLOOD ORDERABLES Fin al Result [facility] Department [place] [address] * (ABNORMAL) Pro B-type natriuretic peptide (09/20/2024 [...] AM CDT 09/20/2024 11:08 AM CDT us Adolhp Palacios MD LAB BLOOD ORDERABLES Fin al Result Performing Organization Address [facility] de Phone Number [facility] Department [place] [address] * TSH (09/20/2024 10:51 AM CDT) Thyroid Stimulating Hormone 2.48 0.30 - 4.20 mcIUnit/mL Blood 09/20/2024 10:5 1 AM CDT 09/20/2024 11:08 AM CDT us Lanre Shfaer MD LAB BLOOD ORDERABLES Fin al Result Performing Organization Address [facility] Co de Phone Number [facility] Department [place] [address] * Basic metabolic panel (09/20/2024 10:51 AM CDT) Sodium 141 135 - 145 mmol/L Potassium, pl 3.9 3.3 - 4.9 mmol/L [facility] Chloride 107 97 - 110 mmol/L [facility] CO2 25 22 - 32 mmol/L [facility] Anion gap 9 2 - 15 mmol/L [facility] BUN 19 6 - 25 mg/dL [facility] Creatinine 0.71 0.60 - 1.10 mg/dL [facility] Glucose 126 70 - 199 mg/dL [facility] Comment: Interpretive Data Fasting glucose >/= [...] 2022. Calcium 8.8 8.5 - 10.3 mg/dL [facility] Blood 09/20/2024 10:5 1 AM CDT 09/20/2024 11:08 AM CDT us Lanre Shafer MD LAB BLOOD ORDERABLES Fin al Result [facility] Department [place] [address] * Portable/Home Sleep Study (09/16/2024) Shannan Juan MD - 09/16/2024 HOME SLEEP APNEA TEST HISTORY: Romi Bradley is a 54 y.o. female who presents for Home sleep apnea test. (HSAT). Reason for sleep study: Snoring, atrial fibrillation [facility] Sleepiness Score: 14 Weight: 284 lbs BMI: 41.94 PROCEDURE: This is a single night diagnostic study. This Home Sleep apnea Test (HSAT) utilized an unattended FDA approved RedMed apnea link home air portable monitoring device investigating for obstructive sleep apnea. The patient was provided instructions of the device and application by the registered cardiopulmonary technologist chief at the [facility]. This test was performed without a environmental health technologist in attendance. In this study, the following parameters were monitored: Emerald-nasal airflow, snoring, chest respiratory effort, abdominal respiratory effort, body position, movement, oxygen saturation, and heart rate. Respiratory events are scored according to the criteria from The [place] Academy of Sleep Medicine (AASM) Manual for [...] be taken into consideration. Shannan Nickerson MD [facility] Sleep Medicine Narrative Shannan Nickerson MD - 09/16/2024 Ocst is ready for review us Jonnie Boswell MD SLEEP CENTER ORDERABLES F inal Result from Last 3 Months Insurance [facility] Care Teams Excelsior Picker Relationship Specialty Start Date End Date Brooklyn Meng NP [address] [place] [address] PCP - General Internal Medicine 12/03/24
--- OUTSIDE RECORDS SUMMARY | 2024-12-12 18:00 | XMS_ITS | Encounter Summary ---
Author Organization [facility] Healthcare Address [address] [place] [address] Care Team Providers Care Sewage Plant Attendant Name Role Phone Brooklyn Meng NP Primary Care Provider [phone] Reason for Visit * Reason Onset Date Comments Zepbound -Plan exclusion 12/07/2024 PA for Zepbound 12/07/2024 Encounter Details Date Type Department Care Team (Late st Contact Info) Description 12/07/2024 Telephone [facility] Primary Care at [address] [address] Brooklyn Meng NP [address] [place] [address] [address] [place] [address] Zepbound -Plan exclusion ; PA for Zepbound Social History Tobacco Use Types Packs/Day Years [...] on file Legal Sex Female 4:[address] JUSTICE Gender Identity Female 03/30/2024 9:27 PM CDT Sexual Orientation Straight 03/30/2024 9: 27 PM CDT documented as of this encounter Miscellaneous Notes * Telephone Encounter - Valencia Rothman MA - 12/07/2024 1:57 PM CDT Images from the original note were not included. Medication has been Denied. Scanned into the chart. Patient has been informed and pharmacy has beenfaxed. * Telephone Encounter - Valencia Rothman MA - 12/07/2024 8:59 AM CDT Notes to prescriber: Plan exclusion - PA has been started for MIREYA dx. Prior authorization for Zepbound has been started through cover my meds. Waiting for determination.Patient has been sent a Dianping message. [facility] [phone] [place] [address], [place] [address] Your demographic [facility] has [facility]! [facility] typically takes up to one hour to respond, but it may take a little longer in some cases. You will be notified by email when available. You can also check for an update later by opening thisrequest from your dashboard. Please do not fax or call [facility] to resubmit this request. If you need assistance, please chat with [employer] or call us at . If it has been longer than 24 hours, please reach out to Ethel. documented in this encounter Plan of Treatment Not on file documented as of this encounter Visit Diagnoses Not on filedocumented in this encounter Care Teams Sewage Plant Attendant Relationship Specialty Start Date End Date Brooklyn Meng NP [address] [facility] [address] [place] [address] PCP - General Internal Medicine 12/03/24 documented as of this encounter
== END 2024-12-12 15:51 | disposition home or self-care (01) ==
PROVIDERS: Emergency Provider Emergency Medicine; PCP Nurse Practitioner
DX: I48.20 Chronic atrial fibrillation, unspecified (principal)
CPT/HCPCS: 36415; 71045; 80053; 83690; 83735; 84484; 85025; 85610; 85730; 93005; 99284

== ENCOUNTER 2025-03-04 17:07 | Emergency (ER) | payer OTHER, SELFPAY ==
--- OUTSIDE RECORDS SUMMARY | 2025-03-03 09:00 | XMS_ITS | Encounter Summary ---
Author Organization [facility] Address [address] [place] [address] Phone Care Team Providers Care Digital Archivist Name Role Phone Brooklyn Meng NP Primary Care Provider [phone] Reason for Referral * Cardiology (Routine) - Pending Review Specialty Diagnoses / Procedures Referred By Contac t Referred To Contact Diagnoses Cardiomyopathy, hypertrophic (HCC) Paroxysmal atrial fibrillation (HCC) Chronic diastolic congestive heart failure (HCC) Intermittent palpitations Procedures [facility] Mobile Cardiac Telemetry Event Monitor [facility] Mobile Cardiac Telemetry Event Monitor Fred Thomas MD [address] [facility] [address] [place] [address] Phone: tel: fax: [facility] Cardiology [address] [facility] Advanced Medicine 8th [place] [address] [place] [address] Phone: tel: fax: Referral ID Status Reason Start Date Expiration Date V isits Requested Visits Authorized [id number] Pending Review 03/03/2025 04/02/2026 1 1 Reason for Visit * Consultation (Routine) - Closed Specialty Diagnoses / Procedures Referred By Contac t Referred To Contact Cardiology Diagnoses LVH (left ventricular hypertrophy) Niko Boswell MD [address] [facility] [address] [place] [address] Phone: tel: fax: Fred Thomas MD [address] [facility] [address] [place] [address] Phone: tel: fax: Referral ID Status Reason Start Date Expiration Date V isits Requested Visits Authorized [id number] Closed Specialty Services Required 10/22/2024 11/21/2025 1 1 Encounter Details Date Type Department Care Team (Late st Contact Info) Description 03/03/2025 9:00 AM CDT Office Visit [facility] Medicine Cardiology [address] [facility] Medicine 8th [place] [address] [place] [address] Fred Thomas MD [address] [address] Cardiomyopathy, hypertrophic (HCC) (Primary Dx); Paroxysmal atrial fibrillation (HCC); Chronic diastolic congestive heart failure (HCC); Intermittent palpitations; MIREYA (obstructive sleep apnea) Social History Tobacco Use Types Packs/Day Years Used Date Smoking Tobacco: Never Smokeless Tobacco: Never Tobacco Cessation:Counseling Given: Not Answered Alcohol Use Standard Drinks/Week Comments Yes 0 [...] on file 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 Gender Identity Female 03/30/2024 9:27 PM CDT Sexual Orientation Straight 03/30/2024 9: 27 PM CDT documented as of this encounter Last Filed Vital Signs Vital Sign Reading Time Taken Comments Blood Pressure 141/85 03/03/2025 9:12 AM CDT Pulse 62 03/03/2025 9:12 AM CDT Temperature - - Respiratory Rate - - Oxygen Saturation 98% 03/03/2025 9:12 AM CDT Inhaled Oxygen Concentration - - Weight 128.4 kg (283 lb) 03/03/2025 9:12 AM CDT Height 175.3 cm (5' 9) 03/03/2025 9:12 AM CDT Body Mass Index 41.79 03/03/2025 9:12 AM CDT documented in this encounter Patient Instructions * Patient Instructions* Fred Thomas MD - 03/03/2025 9:00 AM CDT Images from the original note were not included. Start blood thinner apixaban (Eliquis) 5 mg twice daily. Stop aspirin. Continue other current medications. Check blood pressure and heart rate daily and report to my office by phone or web portal in 2-3 weeks. Obtain 30-day event monitor. Try to pursue regular gradually increasing mild to moderate aerobic exercise, as we discussed. I recommend echo testing for HCM for your children and sister. My office to arrange an office visit with our genetics expert, Dr. Abbott, to discuss genetic testing. I will follow-up with you by telephone. Follow-up office visit in 6-12 months; call sooner for worsened symptoms. Patient Education Hypertrophic Cardiomyopathy WHAT YOU NEED TO KNOW: What is hypertrophic cardiomyopathy? Hypertrophic cardiomyopathy (HCM) is a disease of your heart muscle that causes your ventricles to become thick and stiff. The ventricles are the 2 lower chambersof your heart. They pump blood to your lungs and the rest of your body. When the ventricles are thick or stiff, your heart cannot fill with enough blood. This decreases the blood and oxygen supply tothe rest of your body. HCM may be a genetic disease that you are born with. What are the signs and symptoms of hypertrophic cardiomyopathy? You may have no signs or symptoms or you may have the following: Chest pain or trouble breathing Feeling dizzy or faint when you stand up quickly or exercise Fatigue and weakness Strong, rapid, or irregular heartbeats that feel like pounding in your chest Swollen or bulging neck veins How is hypertrophic cardiomyopathy diagnosed? Your healthcare provider will listen to your heart and lungs. He may check your abdomen, ankles, and feet for swelling. Tell him if you have other healthconditions or family members with heart disease. Tell your healthcare provider if you smoke, drink alcohol, or take drugs. You may need the following tests: Blood and urine tests: A sample of your blood or urine may be sent to the lab for tests. These may help find the cause of your HCM. They may also tell if your organs, such as your liver and kidneys, are working correctly. EKG: This test records the electrical activity of your heart. It may show abnormal heartbeats or signals from changes to the heart muscle. Chest x-ray: This is used to check the size of your heart and look for fluid around your heart and lungs. An echocardiogram is a type of ultrasound. Sound waves are used to show the structure and function of your heart. Radionuclide ventriculography: This test uses dye to show the size of your left ventricle. It can also show how much blood is pumped out of your heart with each heartbeat. CT scan: This test is also called a CAT scan. An x-ray machine uses a computer to take pictures of your heart. Healthcare providers can check your heart, the size of your ventricles, and see if you have fluid around your heart and lungs. You may be given a dye before the pictures are taken to help healthcare providers see the pictures better. Tell the healthcare provider if you have ever had an allergic reaction to contrast dye. Cardiac MRI (CMR): This scan uses powerful magnets and a computer to take pictures of your heart. ACMR may show the size of your heart and the thickness of your ventricles. It can also show if you have iron buildup in your heart. You may be given dye to help the pictures show up better. Tell the healthcare provider if you have ever had an allergic reaction to contrast dye. Do not enter the CMR room with anything metal. Metal can cause serious injury. Tell the healthcare provider if you have any metal in or on your body. Cardiac catheterization is a procedure used to look for or treat a heart condition. A catheter is inserted in your arm, neck, or groin and moved into your heart. Contrast liquid is injected into an artery and x-rays of your blood flow are taken. Tell a healthcare provider if you have ever had an allergic reaction to contrast liquid. Myocardial biopsy: During this test, a small sample of tissue is taken from your heart. It may helphealthcare providers learn the cause of your HCM. What medicines are used to treat hypertrophic cardiomyopathy? Treatment of HCM depends on how much the disease has affected your health. The goal of treatment is to stop the problems caused by HCM and keep the disease from getting worse. You may have one or more of the following treatments: Blood thinners: Blood thinners help prevent blood clots. These include aspirin and warfarin. Take your medicine exactly as directed. Tell your healthcare provider if you forgot to take it or if you took too much. Blood thinners may cause you to bleed or bruise more easily. Use a soft toothbrush andan electric shaver. Wear medical alert jewelry or carry a card that says you take a blood thinner. Tell all healthcare providers, including your dentist, that you take this medicine. Heart medicine: This medicine helps strengthen or regulate your heartbeat. Blood pressure medicine: This is given to lower your blood pressure. A controlled blood pressure helps protect your organs, such as your heart, lungs, brain, and kidneys. Take your blood pressure medicine exactly as directed. What treatments are used to treat hypertrophic cardiomyopathy? Pacemaker: This device is placed under your skin to help regulate your heartbeats. Implantable cardiac defibrillator: A cardiac defibrillator is placed under your skin to help prevent life-threatening arrhythmias (abnormal heartbeats). Heart surgery: You may need surgery to remove part of the thickened muscle. You may also need to have a heart valve repaired or replaced so your heart can pump enough blood to your body. Heart valvesallow blood flow between the chambers of your heart. Septal ablation: This is a procedure where healthcare providers use a cardiac catheter to inject a solution of alcohol into the thickened part of the heart wall (septum). This can help shrink that part of the muscle and increase the amount of blood the heart can pump. What are the risks of hypertrophic cardiomyopathy? You may bleed more than expected or get an infection after surgery. Without treatment, your symptoms may get worse. You may have abnormal heartbeats, trouble breathing, or get a blood clot. The clot may travel to your heart or brain and cause a heart attack or stroke. Fluid may build up in your lungs and body. This may make it hard for you to breathe. Your liver and kidneys may fail. These problems can be life-threatening. How can I manage my symptoms? Check your weight daily: Weight gain can be a sign of extra fluid in your body. Weigh yourself at the same time every morning. Use the same scale and weigh yourself before you eat and after you urinate. Record your weight and the time you weighed yourself in a diary. Bring your diary to your visitswith your healthcare provider. Limit your liquids: Ask how much liquid to drink each day and which liquids are best for you. Your risk for fluid buildup and swelling increases if you drink too much liquid. Manage your health conditions: Health conditions, such as diabetes and high blood pressure, may make your symptoms worse and increase your risk for other heart problems. Exercise: Ask your healthcare provider about the best exercise plan for you. Exercise may help decrease your symptoms and improve your heart function. Eat a variety of healthy foods: Healthy foods include fruits, vegetables, whole- grain breads, low-fat dairy products, beans, lean meats, and fish. Limit the amount of sodium (salt) you eat. Too much sodium can cause swelling and make your symptoms worse. Ask how much sodium you can have each day. Pay careful attention to sodium content on food labels. Do not drink alcohol, smoke, or use drugs: If you smoke it is never too late to quit. Do not take any illegal street drugs. Alcohol, smoking, or illegal drugs can make your heart condition worse. Askfor information if you need help quitting. When should I contact my healthcare provider? You gain weight for no known reason. You feel weak or more tired than usual. You have increased swelling in your legs, ankles, feet, or abdomen. Your symptoms return or get worse. You have questions or concerns about your condition or care. When should I seek immediate care or call 911? You feel like your heart is beating faster than normal, fluttering, or jumping in your chest. You urinate less than usual or not at all. You have chest pain that may be worse when you take a deep breath or cough. You may cough up blood. You have a sudden cold sweat, especially with chest discomfort or trouble breathing. You feel very lightheaded or dizzy, especially with chest discomfort or trouble breathing. You have pain or discomfort in your back, neck, jaw, abdomen, or one or both of your arms. You have a severe headache or vision loss. You have weakness in an arm or leg. You are confused or have difficulty speaking. You suddenly have trouble breathing. CARE AGREEMENT: You have the right to help plan your care. Learn about your health condition and how it may be treated. Discuss treatment options with your caregivers to decide what care you want to receive. You always have the right to refuse treatment. The above information is an educational speech language clinician only. It is not intended as medical advice for individual conditions or treatments. Talk to your doctor, nurse or pharmacist before following any medical regimen to see if it is safe and effective for you. ?? 2017 [employer] Information is for End User's use only and may not be sold, redistributed or otherwise used for commercial purposes. All illustrations and images included in CareNotes?? are the copyrighted property of [employer]. or [employer] documented in this encounter Ordered Prescriptions Prescription Sig Dispense Quantity Refills Last Filled Start Date End Date apixaban (ELIQUIS) 5 mg tabletIndications:a trial fibrillation Take 1 tablet (5 mg total) by mouth 2 (two) times a day 60 tablet 11 03/03/2025 documented in this encounter Plan of Treatment Pending Results Name Type Priority Associated Diagnoses Date /Time [facility] Mobile Cardiac Telemetry Event Monitor Cardiac Services Routine Cardiomyopathy, hypertrophic (HCC) Paroxysmal atrial fibrillation (HCC) Chronic diastolic congestive heart failure (HCC) Intermittent palpitations 03/04/2025 10:23 AM CDT Scheduled Orders Name Type Priority Associated Diagnoses Orde r Schedule [facility] Mobile Cardiac Telemetry Event Monitor Cardiac Services Routine Cardiomyopathy, hypertrophic (HCC) Paroxysmal atrial fibrillation (HCC) Chronic diastolic congestive heart failure (HCC) Intermittent palpitations Expected: 03/04/2025, Expires: 03/04/2026 documented as of this encounter Visit Diagnoses Diagnosis Cardiomyopathy, hypertrophic (HCC)- Primary Paroxysmal atrial fibrillation (HCC) Atrial fibrillation Chronic diastolic congestive heart failure (HCC) Intermittent palpitations MIREYA (obstructive sleep apnea) Obstructive sleep apnea (adult) (pediatric) documented in this encounter Discontinued Medications Medication Sig Discontinue Reason Start Date End Da te aspirin 81 mg enteric coated tablet Take 1 tablet (81 mg total) by mouth daily Therapy completed 11/10/2023 03/03/2025 documented as of this encounter Orders Outpatient Referral Count Last Ordered Date Fir st Ordered Date AMB REFERRAL TO CARDIOLOGY 1 03/03/2025 Health Maintenance Count Last Ordered Date Firs t Ordered Date MYCHART BP/PULSE FLOWSHEET 1 03/04/2025 documented in this encounter Care Teams Digital Archivist Relationship Specialty Start Date End Date Brooklyn Meng NP [address] [place] [address] PCP - General Internal Medicine 12/03/24 documented as of this encounter
[2025-03-04] VITALS (12 sets, daily range): BP systolic 99–140; BP diastolic 63–126; PULSE 55–145; RESP 12–24; TEMP 36.8; O2SAT 96–99
--- NOTE | ~2025-03-04 | XR_ITS ---
EXAMINATION: XR chest 2V 03/04/2025 17:35 INDICATION: Chest pain PROCEDURE: 2 view chest COMPARISON: 12/12/2024 FINDINGS: The lungs are clear. The cardiomediastinal silhouette is within normal limits. There are no pleural effusions. There is no pneumothorax suspected. IMPRESSION: 1: NO ACUTE CARDIOPULMONARY DISEASE. Reviewed, dictated and finalized at location O.
--- OUTSIDE RECORDS SUMMARY | 2025-03-04 10:30 | XMS_ITS | Encounter Summary ---
Author Organization [facility] Address [address] [facility] [address] [place] [address] Phone Care Team Providers Care Career Services Assistant Name Role Phone Brooklyn Meng NP Primary Care Provider [phone] Reason for Visit * Cardiology (Routine) - Pending Review Specialty Diagnoses / Procedures Referred By Hien garcia Referred To Contact Diagnoses Cardiomyopathy, hypertrophic (HCC) Paroxysmal atrial fibrillation (HCC) Chronic diastolic congestive heart failure (HCC) Intermittent palpitations Procedures [facility] Mobile Cardiac Telemetry Event Monitor [facility] Mobile Cardiac Telemetry Event Monitor Fred Thomas MD [address] [address] Phone: tel: fax: [facility] Cardiology [address] [place] [address] 8th [place] [address] [place] [address] Phone: tel: fax: Referral ID Status Reason Start Date Expiration Date V isits Requested Visits Authorized [id number] Pending Review 03/03/2025 04/02/2026 1 1 Encounter Details Date Type Department Care Team (Latest Contact Info) Description 03/04/2025 10:30 AM CDT Ancillary Procedure [facility] Medicine Cardiology [address] [place] [address] 8th [place] [address] [place] [address] Cardiomyopathy, hypertrophic (HCC); Paroxysmal atrial fibrillation (HCC); Chronic diastolic congestive heart failure (HCC); Intermittent palpitations Social History Tobacco Use Types Packs/Day Years [...] on file 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 Gender Identity Female 03/30/2024 9:27 PM CDT Sexual Orientation Straight 03/30/2024 9: 27 PM CDT documented as of this encounter Plan of Treatment Pending Results Name Type Priority Associated Diagnoses Date /Time [facility] Mobile Cardiac Telemetry Event Monitor Cardiac Services Routine Cardiomyopathy, hypertrophic (HCC) Paroxysmal atrial fibrillation (HCC) Chronic diastolic congestive heart failure (HCC) Intermittent palpitations 03/04/2025 10:23 AM CDT documented as of this encounter Visit Diagnoses Diagnosis Cardiomyopathy, hypertrophic (HCC) Paroxysmal atrial fibrillation (HCC) Atrial fibrillation Chronic diastolic congestive heart failure (HCC) Intermittent palpitations documented in this encounter Care Teams Career Services Assistant Relationship Specialty Start Date End Date Brooklyn Meng NP [address] [facility] [address] [place] [address] PCP - General Internal Medicine 12/03/24 documented as of this encounter
--- OUTSIDE RECORDS SUMMARY | 2025-03-04 16:00 | XMS_ITS | Encounter Summary ---
Author Organization [facility] Address [address] [place] [address] Care Team Providers Care Cop Name Role Phone Brooklyn Meng NP Primary Care Provider [phone] Reason for Referral * Cardiology (Routine) - Authorized Specialty Diagnoses / Procedures Referred By Contac t Referred To Contact Diagnoses Paroxysmal atrial fibrillation (HCC) Procedures ECG 12 lead Brooklyn Meng NP [address] [address] Phone: tel: fax: [facility] Referral ID Status Reason Start Date Expiration Date V isits Requested Visits Authorized [id number] Authorized 03/04/2025 04/03/2026 1 1 Reason for Visit * Reason Comments Follow-up 3 month f/u Afib,HLD .no labs Encounter Details Date Type Department Care Team (Late st Contact Info) Description 03/04/2025 4:00 PM CDT Office Visit [facility] Primary Care at [address] [address] Brooklyn Meng NP [address] 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 Gender Identity Female 03/30/2024 9:27 PM CDT Sexual Orientation Straight 03/30/2024 9: 27 PM CDT documented as of this encounter Last Filed Vital Signs Vital Sign Reading Time Taken Comments Blood Pressure 100/74 03/04/2025 3:40 PM CDT Pulse 105 03/04/2025 3:40 PM CDT Temperature 36.4 C (97.6 F) 03/04/2025 3:40 PM CDT Respiratory Rate 16 03/04/2025 3:40 PM CDT Oxygen Saturation 98% 03/04/2025 3:40 PM CDT Inhaled Oxygen Concentration - - Weight 127.5 kg (281 lb) 03/04/2025 3:40 PM CDT Height 175.3 cm (5' 9) 03/04/2025 3:40 PM CDT Body Mass Index 41.5 03/04/2025 3:40 PM CDT documented in this encounter Patient Instructions * Patient Instructions* Brooklyn Meng NP - 03/04/2025 4:00 PM CDT Thanks for coming in today. My medical office clerk, Kena, and I are thankful you have trusted us with your care, and hope that you received EXCELLENT care today! Please do not hesitate to call if you have any questions or concerns at [phone]. You may receive a phone call or text asking aboutyour care today. We would love to hear your input and again, hope your visit was as EXCELLENT as possible, even if you were not feeling your best! documented in this encounter Ordered Prescriptions Prescription Sig Dispense Quantity Refills Last Filled Start Date End Date semaglutide (WEGOVY) 0.25 mg/0.5 mL auto-injectorIndic ations:cardiovascu lar event risk reduction in obesity Inject 0.25 mg under the skin every 7 days 2 mL 03/04/2025 semaglutide (WEGOVY) 0.25 mg/0.5 mL auto-injectorIndic ations:cardiovascu lar event risk reduction in obesity Inject 0.25 mg under the skin every 7 days 2 mL 03/04/2025 03/04/2025 documented in this encounter Miscellaneous Notes * Assessment & Plan Note - Brooklyn Meng NP - 03/04/2025 4:00 PM CDT Associated Problem(s): Morbid obesity with BMI of 40.0-44.9, adult (HCC) * Assessment & Plan Note - Brooklyn Meng NP - 03/04/2025 4:00 PM CDT Associated Problem(s): Hyperlipidemia Orders: semaglutide (WEGOVY) 0.25 mg/0.5 mL auto-injector; Inject 0.25 mg under the skin every 7 days * Assessment & Plan Note - Brooklyn Meng NP - 03/04/2025 4:00 PM CDT Associated Problem(s): LVH (left ventricular hypertrophy) Orders: semaglutide (WEGOVY) 0.25 mg/0.5 mL auto-injector; Inject 0.25 mg under the skin every 7 days * Assessment & Plan Note - Brooklyn Meng NP - 03/04/2025 4:00 PM CDT Associated Problem(s): Paroxysmal atrial fibrillation (HCC) Orders: semaglutide (WEGOVY) 0.25 mg/0.5 mL auto-injector; Inject 0.25 mg under the skin every 7 days ECG 12 lead; Future * Assessment & Plan Note - Brooklyn Meng NP - 03/04/2025 4:00 PM CDT Associated Problem(s): Biatrial enlargement Orders: semaglutide (WEGOVY) 0.25 mg/0.5 mL auto-injector; Inject 0.25 mg under the skin every 7 days documented in this encounter Plan of Treatment Not on file documented as of this encounter Procedures Procedure Name Priority Date/Time Associated Diagnosis Comments ECG 12-LEAD Routine 03/04/2025 4:06 PM CDT Paroxysmal atrial fibrillation (HCC) documented in this encounter Results * ECG 12 lead (03/04/2025 4:06 PM CDT) Brooklyn Meng NP ECG ORDERABLES Final Result documented in this encounter Visit Diagnoses Diagnosis Morbid obesity with BMI of 40.0-44.9, adult (HCC)- Primary Mixed hyperlipidemia LVH (left ventricular hypertrophy) Cardiomegaly Paroxysmal atrial fibrillation (HCC) Atrial fibrillation Biatrial enlargement documented in this encounter Discontinued Medications Medication Sig Discontinue Reason Start Date End Da te tirzepatide, weight loss, (Zepbound) 2.5 mg/0.5 mL pen injectorIndications:Weig ht Loss Management for Obese Patient (BMI >= 30),obstructive sleep apnea syndrome Inject 0.5 mL (2.5 mg total) under the skin every 7 days Patient Reported 12/03/2024 03/04/2025 tirzepatide, weight loss, (Zepbound) 5 mg/0.5 mL pen injectorIndications:Weig ht Loss Management for Obese Patient (BMI >= 30),obstructive sleep apnea syndrome Inject 0.5 mL (5 mg total) under the skin every 7 days Patient Reported 12/03/2024 03/04/2025 semaglutide (WEGOVY) 0.25 mg/0.5 mL auto-injectorIndications :cardiovascular event risk reduction in obesity Inject 0.25 mg under the skin every 7 days 03/04/2025 03/04/2025 documented as of this encounter Care Teams Cop Relationship Specialty Start Date End Date Brooklyn Meng NP [address] [facility] [place] [address] [place] [address] PCP - General Internal Medicine 12/03/24 documented as of this encounter
--- NOTE | 2025-03-04 17:11 | ECG_ITS ---
Test Date: 2025-03-04 17:09:46 Measurements Intervals [place] Rate: 119 P: 0 [place]: 0 QRS: 25 QRSD: 88 T: 124 QT: 301 QTc: 424 Interpretive Statements ATRIAL FIBRILLATION WITH RAPID VENTRICULAR RESPONSE INCOMPLETE RIGHT BUNDLE BRANCH BLOCK LEFT VENTRICULAR HYPERTROPHY WITH ST-T CHANGE CONSIDER INFERIOR INFARCT, AGE INDETERMINATE PEAKED T WAVES- CONSIDER HYPERKALEMIA BASELINE ARTIFACT- I, III, AVR, AVL, AVF, V1 ABNORMAL ECG Compared to ECG 12/12/2024 11:56:25 NO SIGNIFICANT CHANGE Electronically Signed On 03-04-2025 17:30:18 CDT by Robinson Sandoval D.O.
[2025-03-04] MEDS: ASPIRIN 81 MG CHEWABLE TABLET 324 MG PO (17:24)
[2025-03-04 17:32] LABS: Hematocrit 40.7 % (37.0-47.0); Hemoglobin 13.6 g/dL (12.0-15.0); Immature Granulocyte Percent A 0.3 % (0-0.5); Lymphocytes Absolute Auto 1.95 K/mm3 (0.9-3.2); Mean Corpuscular HGB Conc 33.4 g/dl (32-36); Mean Corpuscular Hemoglobin 28.0 pg (26-34); Mean Corpuscular Volume 83.9 fl (80-100); Nucleated Red Blood Cells Absolute Auto 0.000 K/mm3 (0.0-0.012); Nucleated Red Blood Cells Perc 0.0 % (0.0-0.2); Platelet Count Result 261 k/mm3 (150-375); Red Blood Count 4.85 M/mm3 (4.2-5.4); White Blood Count 9.1 K/mm3 (4.5-10.0)
[2025-03-04 17:44] LABS: INR 1.2; Prothrombin Time 14.7 Seconds (11.1-14.7)
[2025-03-04 17:45] LABS: Alanine Aminotransferase 39 U/L (6-35); Albumin Level 4.2 g/dL (3.5-5.1); Alkaline Phosphatase 79 U/L (38-126); Anion Gap 9 mmol/L (4-12); Aspartate Amino Transferase 36 U/L (14-36); Bilirubin,Total 0.7 mg/dL (0.2-1.3); Blood Urea Nitrogen 17 mg/dL (7-17); Calcium 9.2 mg/dL (8.4-10.2); Carbon Dioxide 23 mmol/L (22-30); Chloride 105 mmol/L (98-107); Estimated CRCL calculation 113 ml/min; Estimated Glomerular Filt Rate > 60; Glucose 108 mg/dL (65-110); Lipase 261 U/L (23-300); Partial Thromboplastin Time 31.7 Seconds (22.3-36.8); Potassium 4.1 mmol/L (3.4-5.0); Sodium 137 mmol/L (137-145); Total Protein 7.5 g/dL (6.3-8.2)
--- NOTE | 2025-03-04 17:45 | ECG_ITS ---
Test Date: 2025-03-04 17:48:52 Measurements Intervals [place] Rate: 62 P: 48 GA: 178 QRS: 3 QRSD: 102 T: 73 QT: 429 QTc: 437 Interpretive Statements SINUS RHYTHM POSSIBLE LEFT ATRIAL ENLARGEMENT BORDERLINE R WAVE PROGRESSION, ANTERIOR LEADS LEFT VENTRICULAR HYPERTROPHY AND ST-T CHANGE CONSIDER INFERIOR INFARCT, AGE INDETERMINATE ABNORMAL ECG Compared to ECG 03/04/2025 17:09:46 Atrial fibrillation no longer present POSSIBLE ISCHEMIA NO LONGER PRESENT Electronically Signed On 03-04-2025 20:32:16 CDT by Robinson Sandoval D.O.
--- NOTE | 2025-03-04 17:46 | ECG_ITS ---
Test Date: 2025-03-04 20:15:31 Measurements Intervals [place] Rate: 54 P: 46 ND: 185 QRS: 7 QRSD: 96 T: 128 QT: 459 QTc: 436 Interpretive Statements SINUS BRADYCARDIA POSSIBLE LEFT ATRIAL ENLARGEMENT LEFT VENTRICULAR HYPERTROPHY AND ST-T CHANGE CONSIDER ANTERIOR INFARCT, AGE INDETERMINATE BASELINE ARTIFACT- I, II, III, AVR, AVL, AVF ABNORMAL ECG Compared to ECG 03/04/2025 17:48:52 HEART RATE HAS DECREASED Electronically Signed On 03-04-2025 20:36:34 CDT by Robinson Sandoval D.O.
[2025-03-04 17:57] LABS: Troponin I 0.013 ng/mL (0.000-0.034)
--- NOTE | 2025-03-04 18:08 | ED_ITS ---
HPI - Chest Pain General Chief Complaint: Chest Pain Stated Complaint: chest pain Time Seen by Provider: 03/04/25 17:36 History of Present Illness HPI narrative: This is a 55-year-old female with history of paroxysmal AFib on Eliquis who presents to the ED for palpitations and chest tightness. Patient states that about 3 hours ago, she was on her to her PCPs office when she had onset of palpitations similar to her prior episodes of AFib. She states that has been persistent until about 10 minutes ago when her symptoms resolved. She has some remnant chest tightness at this time. Denies shortness of breath, fevers, chills, nausea, vomiting. Related Data Home Medications ?Medication ?Instructions ?Recorded ?Confirmed ?Last Taken ?Type multivitamin 1 tablet PO DAILY 04/17/21 0 11/26/24 Unknown History cetirizine 10 mg capsule (Zyrtec) 10 mg PO DAILY 07/1711/26/24 Unknown History calcium carbonate (Calcium Antacid) 400 mg PO DAILY 11/26/24 Unknown History melatonin 5 mg tablet 5 mg PO HS PRN sleep 4 11/26/24 Unknown History Allergies Allergy/AdvReac Type Severity Reaction Status Date / Time No Known Allergies Allergy Verified 03/04/25 17:19 Review of Systems 2 Review of Systems: Gen.: Denies fevers or chills Eyes: Denies eye pain or visual change ENT: Denies congestion Respiratory: Denies shortness of breath or cough CV: As per HPI GI: Denies abdominal pain nausea, emesis or diarrhea denies burning, urgency, frequency or hematuria Musculoskeletal: Denies back pain or muscle pain Neuro: Denies numbness, tingling, weakness or focal weakness Skin: Denies rash Except as documented, all other systems reviewed and negative [facility] Past Medical History Medical History Prediabetes Left ventricular hypertrophy Paroxysmal atrial fibrillation Perimenopause Morbid obesity with BMI of 40.0-44.9, adult Surgical History Surgical History History of foot surgery (2001) hammer toes History of rotator cuff surgery (03/18/17) left shoulder History of endometrial ablation 12/06/12 Novasure ablation--menorrhagia History of dilation and curettage 02/04/12 hscope d&c--benign proliferative endometrium 02/23/14 hscope d&c--early secretory endometrium History of cervical polypectomy (01/24/12) in office--benign endocervical polyp Delivery by section x2 2002, 2006 Family History Family History Father Diabetes mellitus Family history of lung cancer Family history of atrial fibrillation Heart disease Kidney disease Grandparent Family history of cardiovascular disease Family history of pancreatic cancer Family history of lung cancer Family history of throat cancer Mother Family history of liver disease Family history of atrial fibrillation Cerebrovascular accident Osteoporosis Carcinoma of colon Sibling No problems noted. Social History Social History Social History: Surrogate medical decision maker: Doyle Rohanlele, spouse. Code status: Full code. Smoking status: Never smoker Second hand tobacco smoke exposure: Yes Alcohol intake: former Drinks per week: 1 Alcohol use details: occasionally Substance use: never Substance use type: does not use Do You Feel Safe in your Home?: Yes Lack of Transportation: No Lack of Food: Never True Current Housing: I Have Housing Concerned About Future Housing: No Difficulty Paying Gas/Electric Bills: No Difficulty Paying for Meds: No Currently Unemployed: No Education: Bachelor's Degree Difficulty w/ Childcare or Family Care: No Living arrangements: with family Additional living arrangements comments: . Lives with spouse in [place]. They have 2 children. 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 Spiritual care concerns: No Exam 2 Narrative: APPEARANCE: No acute distress, nontoxic, resting in bed EYES: EOMI HEENT: Normocephalic, atraumatic, OMM RESPIRATORY: No respiratory distress Clear to auscultation bilaterally with no rhonchi wheezing or rales. CARDIOVASCULAR: Regular rate and rhythm without murmurs rubs or gallops. ABDOMINAL: Soft, nontender, nondistended, no rebound or guarding MUSCULOSKELETAl: Moves all extremities. No clubbing, cyanosis or edema. NEURO: Awake and alert. Following commands, speech normal, no focal deficits SKIN:: Warm, dry. No rashes lesions or abrasions PSYCHIATRIC: Normal affect/mood, Course Vital Signs Vital signs: Vital Signs Temperature 98.3 F 03/04/25 17:04 Pulse Rate 145 H 03/04/25 17:04 Respiratory Rate 12 03/04/25 17:04 Blood Pressure 140/126 H 03/04/25 17:04 Pulse Oximetry 98 03/04/25 17:04 Oxygen Delivery Room Air 03/04/25 17:04 Temperature 98.3 F 03/04/25 17:04 Pulse Rate 67 03/04/25 21:27 Respiratory Rate 22 H 03/04/25 21:27 Blood Pressure 114/73 03/04/25 21:27 Pulse Oximetry 99 03/04/25 21:27 Oxygen Delivery Room Air 03/04/25 17:18 MDM - Chest Pain MDM Narrative Medical decision making narrative: 55-year-old female presents to the ED for chest tightness and palpitations. On initial arrival, patient was in AFib with RVR on the monitor and by EKG. By the time I evaluated the patient shortly after, she had converted to normal sinus rhythm spontaneously. She continued to have some mild chest tightness but this had significantly improved. Her palpitations had resolved. She was otherwise asymptomatic at this time. No recent illnesses. Initial troponin was negative. Repeat troponin negative. Chest x-ray showed no acute process. Repeat EKG confirmed conversion to normal sinus rhythm. Patient was just started on Eliquis a day or 2 ago her rent and housing investigator which advised her to keep taking. Patient was advised to continue to follow with her rent and housing investigator and her PCP, patient was agreeable to this plan. Given strict return precautions. Differential Diagnosis Differential diagnosis: Likely unstable angina pectoris, atypical chest pain, chest pain and other (afib with RVR) Medical Records Data Attestation: I reviewed the patient's medical records. Lab Data Attestation: I reviewed the patient's lab results. 03/04/25 17:28 03/04/25 17:28 Labs: Lab Results 03/04/25 03/04/25 Range/Units 17:28 20:16 WBC 9.1 (4.5-10.0) K/mm3 RBC 4.85 (4.2-5.4) M/mm3 Hgb 13.6 (12.0-15.0) g/dL Hct 40.7 (37.0-47.0) % MCV 83.9 (80-100) fl MCH 28.0 (26-34) pg MCHC 33.4 (32-36) g/dl RDW 14.0 (11.5-14.5) % Plt Count 261 (150-375) k/mm3 MPV 9.8 (7.4-10.4) fl Immature Gran % (Auto) 0.3 (0-0.5) % Neut % (Auto) 67.0 (45.5-73.1) % Lymph % (Auto) 21.4 (18.3-44.2) % Jack % (Auto) 8.9 H (2.6-8.5) % Eos % (Auto) 1.6 (0-4.4) % Baso % (Auto) 0.8 (0.2-1.2) % Lymph # (Auto) 1.95 (0.9-3.2) K/mm3 Jack # (Auto) 0.8 H (0.1-0.6) K/mm3 Eos # (Auto) 0.2 (0-0.3) K/mm3 Baso # (Auto) 0.1 (0.0-0.1) K/mm3 Abs Immat Gran (auto) 0.03 (0.00-0.031) K/mm3 Absolute Neuts (auto) 6.1 (1.3-6.7) K/mm3 Absolute Nucleated RBC 0.000 (0.0-0.012) K/mm3 Nucleated RBC % 0.0 (0.0-0.2) % PT 14.7 (11.1-14.7) Seconds INR 1.2 APTT 31.7 (22.3-36.8) Seconds Sodium 137 (137-145) mmol/L Potassium 4.1 (3.4-5.0) mmol/L Chloride 105 (98-107) mmol/L Carbon Dioxide 23 (22-30) mmol/L Anion Gap 9 (4-12) mmol/L BUN 17 (7-17) mg/dL Creatinine 0.69 L (0.7-1.0) mg/dL Estim Creat Clear Calc 113 ml/min Estimated GFR > 60 (59 - ) Glucose 108 (65-110) mg/dL Calcium 9.2 (8.4-10.2) mg/dL Total Bilirubin 0.7 (0.2-1.3) mg/dL AST 36 (14-36) U/L ALT 39 H (6-35) U/L Alkaline Phosphatase 79 (38-126) U/L Troponin I 0.013 0.014 (0.000-0.034) ng/mL Total Protein 7.5 (6.3-8.2) g/dL Albumin 4.2 (3.5-5.1) g/dL Lipase 261 (23-300) U/L Imaging Data Radiologist's impression: Impressions Chest X-Ray 03/04/25 17:37 IMPRESSION: 1: NO ACUTE CARDIOPULMONARY DISEASE. Discharge Plan Discharge Clinical Impression: Atrial fibrillation with rapid ventricular response Patient Disposition: Home Condition: Stable Instructions: Antibiotic Form Additional Instructions: Your AFib resolved on its own. Continue to follow-up with your rent and housing investigator as scheduled. Follow up if she is feeling next week for re-evaluation. Return to the ED for any worsening symptoms. Patient Language: Libyan Prescriptions: No Action multivitamin Tablet 1 tablet PO DAILY calcium carbonate [Calcium Antacid] 400 mg calcium (1,000 mg) tablet,chewable 400 mg PO DAILY Zyrtec 10 mg capsule 10 mg PO DAILY metoprolol succinate 50 mg tablet extended release 24 hr 50 mg PO DAILY Qty: 30 0RF atorvastatin 40 mg tablet 40 mg PO HS Qty: 30 0RF melatonin 5 mg tablet 5 mg PO HS PRN (Reason: sleep) aspirin 81 mg capsule 81 mg PO DAILY Qty: 90 3RF montelukast 10 mg tablet 10 mg PO DAILY Qty: 90 1RF Rx Instructions: Take 1 tablet by mouth once daily Follow-up/Referrals: Niko Boswell MD [Physician, Cardiology] Yusra,Brooklyn Ceja APRN [Primary Care Provider, Unknown]
--- OUTSIDE RECORDS SUMMARY | 2025-03-04 18:17 | XMS_ITS | Clinical Summary ---
Author Organization [facility] Address [address] [place] [address] Care Team Providers Care Fast Food Cook Name Role Phone Ray Turner DO Primary Care Provider Source Comments [facility],non-owned Affiliates and Associated Physician Practices is amultiple site organization consisting of ambulatory clinics and hospital sitesin [place] and [place]. This disclosure is being madepursuant to the Care Everywhere program and may not contain all information available regarding this patient. 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
--- OUTSIDE RECORDS SUMMARY | 2025-03-04 18:17 | XMS_ITS | Clinical Summary ---
Author Organization [facility] [address] Address [address] [place] [phone] Care Team Providers Care Heating And Blending Supervisor Name Role Phone [place] NP Primary Care Provider [phone] Allergies No known active allergies Medications multivit with calcium,iron,min (MULTIPLE VITAMIN, WOMENS ORAL) Take by mouth Active calcium carbonate-vitamin D3 1,250 mg (500 mg elemental)-125 unit per tablet Take 1 tablet by mouth daily Active atorvastatin (LIPITOR) 40 mg tabletIndications :Hyperlipidemia, unspecified hyperlipidemia type Take 1 tablet (40 mg total) by mouth every other day at bedtime. 12/04/19 25 Active montelukast (Singulair) 10 mg tabletIndications :Smell disorder Take 1 tablet (10 mg total) by mouth nightly 90 tablet 3 12/04/19 25 Active cetirizine (ZyrTEC) 10 mg tabletIndications :Smell disorder Take 1 tablet (10 mg total) by mouth daily 90 tablet 3 12/04/19 25 Active metoprolol XL (TOPROL-XL) 50 mg extended release tabletIndications :PAF (paroxysmal atrial fibrillation) Take 1 tablet (50 mg total) by mouth daily 90 tablet 1 12/22/19 25 Active apixaban (ELIQUIS) 5 mg tabletIndications :atrial fibrillation Take 1 tablet (5 mg total) by mouth 2 (two) times a day 60 tablet 11 03/03/20 25 Active semaglutide (WEGOVY) 0.25 mg/0.5 mL auto-injectorIndi cations:cardiovas cular event risk reduction in obesity Inject 0.25 mg under the skin every 7 days 2 mL 03/04/20 25 Active aspirin 81 mg enteric coated tablet Take 1 tablet (81 mg total) by mouth daily 11/10/19 24 025 Discontinued(Th lauripy completed) tirzepatide, weight loss, (Zepbound) 2.5 mg/0.5 mL pen injectorIndicatio ns:Weight Loss Management for Obese Patient (BMI >= 30),obstructive sleep apnea syndrome Inject 0.5 mL (2.5 mg total) under the skin every 7 days 2 mL 12/04/19 25 025 Discontinued(Herminio willis Reported) tirzepatide, weight loss, (Zepbound) 5 mg/0.5 mL pen injectorIndicatio ns:Weight Loss Management for Obese Patient (BMI >= 30),obstructive sleep apnea syndrome Inject 0.5 mL (5 mg total) under the skin every 7 days 2 mL 3 12/04/19 25 025 Discontinued(Herminio willis Reported) semaglutide (WEGOVY) 0.25 mg/0.5 mL auto-injectorIndi cations:cardiovas cular event risk reduction in obesity Inject 0.25 mg under the skin every 7 days 2 mL 03/04/20 25 025 Discontinued Active Problems Problem Noted Date Diagnosed Date [...] of 40.0-44.9, adult 11/12 Assessment & Plan (03/04/2025 4:52 PM CDT): Assessment & Plan (12/07/2024 9:44 AM CDT): [...] - Consider referral to metabolic clinic at [facility] if needed. Orders: tirzepatide, weight loss, (Zepbound) 2.5 mg/0.5 mL pen injector; Inject 0.5 mL (2.5 mg total) under the skin every 7 days tirzepatide, weight loss, (Zepbound) 5 mg/0.5 mL pen injector; Inject 0.5 mL (5 mg total) under the skin every 7 days Biatrial enlargement 09/02/2024 Assessment & Plan (03/04/2025 4:52 PM CDT): Orders: semaglutide (WEGOVY) 0.25 mg/0.5 mL auto-injector; Inject 0.25 mg under the skin every 7 days LVH (left ventricular hypertrophy) 09/02/2024 Assessment & Plan (03/04/2025 4:52 PM CDT): Orders: semaglutide (WEGOVY) 0.25 mg/0.5 mL auto-injector; Inject 0.25 mg under the skin every 7 days Assessment & Plan (12/07/2024 9:44 AM CDT): Left ventricular hypertrophy identified on recent heart MRI. Referred to Dr. Templeton for further evaluation. Exercise stress test scheduled for the . - Proceed with scheduled exercise stress test. - Follow up with Dr. Templeton for further evaluation. Hyperlipidemia 09/02/2024 Assessment & Plan (03/04/2025 4:52 PM CDT): Orders: semaglutide (WEGOVY) 0.25 mg/0.5 mL auto-injector; Inject 0.25 mg under the skin every 7 days Assessment & Plan (12/07/2024 9:44 AM CDT): Continue Lipitor 40 mg every other day. Follow recommendations from Cardiology Assessment & Plan (12/07/2024 9:44 AM CDT): Orders: atorvastatin (LIPITOR) 40 mg tablet; Take 1 tablet (40 mg total) by mouth every other day at bedtime. Paroxysmal atrial fibrillation 09/02/2024 Assessment & Plan (03/04/2025 4:52 PM CDT): Orders: semaglutide (WEGOVY) 0.25 mg/0.5 mL auto-injector; Inject 0.25 mg under the skin every 7 days ECG 12 lead; Future Assessment & Plan (12/07/2024 9:44 AM CDT): [...] Discuss potential future need for ablation with recycling operator Orders: metoprolol XL (TOPROL-XL) 50 mg extended release tablet; Take 1 tablet (50 mg total) by mouth daily Systolic ejection murmur 09/02/2024 Assessment & Plan (12/07/2024 9:44 AM CDT): Secondary to mitral regurgitation, 2/6 Resolved Problems Problem Noted Date Diagnosed Date Resolved Date Hypersomnolence 09/02/2024 12/03/2024 Severe obesity 09/02/2024 12/03/2024 Body mass index 40.0-44.9, adult (CMS/HCC) 09/02/2024 12/03/2024 Dizziness 01/30/2016 12/03/2024 Overview (10/24/2016): Dizziness Encounters Date Type Department Care Team Description 03/04/2025 4:00 PM CDT Office Visit [facility] Primary Care at [address] [phone] [place] NP Morbid obesity with BMI of 40.0-44.9, adult (HCC) (Primary Dx); Mixed hyperlipidemia; LVH (left ventricular hypertrophy); Paroxysmal atrial fibrillation (HCC); Biatrial enlargement 03/04/2025 10:30 AM CDT Ancillary Procedure [facility] Cardiology [address] [place] [address] 8th [place] [address] [place] [phone] Cardiomyopathy, hypertrophic (HCC); Paroxysmal atrial fibrillation (HCC); Chronic diastolic congestive heart failure (HCC); Intermittent palpitations 03/03/2025 9:00 AM CDT Office Visit [facility] Cardiology [address] [place] [address] 8th [place] [address] [place] [phone] Fred Templeton MD Cardiomyopathy, hypertrophic (HCC) (Primary Dx); Paroxysmal atrial fibrillation (HCC); Chronic diastolic congestive heart failure (HCC); Intermittent palpitations; MIREYA (obstructive sleep apnea) 01/28/2025 Telephone [facility] Medical [facility] Cardiology [address] [facility] [address] [place] [phone] Niko Boswell MD 01/25/2025 7:15 AM CDT - 01/25/2025 11:59 PM CDT Hospital Encounter [facility] Cardiac Diagnostic Lab [address] [place] [address] Cardiomyopathy, hypertrophic (HCC) Discharge Disposition: Discharge to home or self care 01/25/2025 Results Follow-Up [facility] Primary Care at [address] [phone] [place] NP Stress Echo Exercise W Doppler/CF 01/07/2025 Telephone [facility] Primary Care at [address] [phone] [place] M[place] NP PA for Ozempic (0.25 or 0.5 MG/DOSE) 2MG/3ML pen-injectors 12/23/2024 Documentation [facility] Primary Care at [address] [phone] [place] Meng NP 12/23/2024 Documentation [facility] Primary Care at [address] [phone] [place] Meng NP 12/15/2024 1:30 PM CDT Office Visit [facility] Cardiology [address] [address] [address] [place] [address] Bethany Alberto NP Palpitations (Primary Dx); Systolic ejection murmur; MIREYA (obstructive sleep apnea); Morbid obesity with BMI of 40.0-44.9, adult (HCC); Paroxysmal atrial fibrillation (HCC) 12/15/2024 Telephone [facility] Cardiology [facility] 8th [place] [address] [place] [phone] Arnulfo Travis Scheduling Appointments 12/09/2024 8:30 AM CDT Office Visit [facility] [address] [facility] [address] [place] [address] Suhas Sanderson MD Hypersomnia with sleep apnea (Primary Dx); Obstructive sleep apnea syndrome; Morbid obesity with BMI of 40.0-44.9, adult (HCC) 12/07/2024 Telephone [facility] Primary Care at [address] [phone] [place] NP Zepbound -Plan exclusion ; PA for Zepbound 12/03/2024 2:00 PM CDT Office Visit [facility] Primary Care at [address] [phone] [place] M[place] NP Hyperlipidemia, unspecified hyperlipidemia type (Primary Dx); Morbid obesity with BMI of 40.0-44.9, adult ([facility]); Encounter for immunization; MIREYA (obstructive sleep apnea); Smell disorder; Systolic ejection murmur; PAF (paroxysmal atrial fibrillation) ([facility]); LVH (left ventricular hypertrophy); Hyperlipidemia LDL goal <100 from Last 3 Months Immunizations Immunization Administration Dates Next Due Influenza, Quadrivalent, Gladys l Culture-based MDCK, Preservative Free, Antibiotic Free, Intramuscular 05/12/2023,06/18/2022,05/05/2020 Influenza, Quadrivalent, Spl it, Preservative Free, Intramuscular 05/02/2021 Influenza, Trivalent, Cell C ulture-based MDCK, Preservative Free, Antibiotic Free, Intramuscular 05/05/2020 Influenza, Trivalent, IM (MDV) 05/12/2023 Influenza, Trivalent, Preser vative Free, Intramuscular 06/18/2022 Tdap 12/03/2024 ZOSTER LIVE 02/25/2022 ZOSTER Recombinant 05/10/2022 Surgical History Surgery Date Site/Laterality Comments SECTION 2002, 2006 FOOT SURGERY 07/14/2001 - 07/13/2002 Bilateral Hammer toe surgery ABLATION x2 Medical History Medical History Date Comments Hx Other Medical Hx Other Medical Bilateral foot surgery Anxiety 1988 Dizziness 01/30/2016 Dizziness Sleep apnea November 2024 Family History Medical History Relation Name Comments Diabetes Father Shaheed Diabetes cory us; Heart disease Father Shaheed Heart disease; Kidney disease Father Shaheed Obesity Father Shaheed Sensorineural hearing loss Maternal Grandfather Sensorineural hearing loss; Sensorineural hearing loss Maternal Grandmother Sensorineural hearing loss; Alcohol abuse Mother Sherri Arthritis Mother Sherri Depression Mother Sherri Diabetes Mother Sherri Diabetes croy us; Stroke Mother Sherri Relation Name Status [...] on file Legal 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 Gender Identity Female 03/30/2024 9:27 PM CDT [...] Mass Index 41.5 03/04/2025 3:40 PM CDT Plan of Treatment Health Maintenance Due Date Last Done Comments Breast Cancer Screening-Mammogram 1970 Cervical Cancer Screening 1970 Colon Cancer Screening-Colonoscopy 1970 Regular Well Visit/Exam 18-64 1989 Pneumococcal vaccine <65 (1 of 2 - PCV) 1990 Zoster Vaccine (3 of 3) 07/05/2022 05/10/2022, 02/25 Influenza Vaccine (#1) 2025 3, 05/12/2023, 06/18/2022, Additional history exists Covid-19 Vaccine ( season) [...] 4:06 PM CDT Paroxysmal atrial fibrillation (HCC) STRESS ECHO EXERCISE W DOPPLER/CF W CONTRAST Routine 01/25/2025 9:12 AM CDT Cardiomyopathy, hypertrophic (HCC) from Last 3 Months Results * ECG 12 lead (03/04/2025 4:06 PM CDT) us [place] Meng NP ECG ORDERABLES Final Result * STRESS ECHO EXERCISE W DOPPLER/CF W CONTRAST (01/25/2025 9:12 AM CDT) EF Mod BP 75 % CONS SCIMAGE Anatomical Region Laterality Modality Ultrasound 01/25/2025 7:15 AM CDT Narrative 01/25/2025 10:17 AM CDT [facility] Card[place] [address] Exercise Stress Transthoracic Echocardiographic Report Patient Name: ROMI BRADLEY : 1970 (55y ) Gender: F Study Date: 01/25/2025 07:15:00 AM Ht(Inch): 68 Wt(Lb): 270.06 BSA: 2.42 Elevator Repairer: Jenn Travis [facility] Location: [facility] Order Provider: FRED TEMPLETON Heart Rate: 52 BMI: 41.06 Ref Provider: FRED TEMPLETON PROCEDURES: Stress Echo Report: Stress Echocardiography transthoracic, real-time with image documentation (2D), includes M-Mode recording, Doppler Echocardiography and Doppler color flow when performed, during treadmill exercise induced peak heart rate with interpretation and report; including performance of continuous electrocardiographic monitoring, with physician supervision. Additional Procedures: Ultrasound enhancing agent (echo contrast) was administered. Contrast: Contrast Enhancement was Employed: used Perflutren contrast because 2 of 16 LV wall segments in any view not visualized, using the volume necessary to obtain adequate images. 1.5 ml Optison Administered, (1.5 ml wasted). Performed By: Donald Bustos RN. Supervising Physician: Dr. Criss Abbott. Procedure Notes: IV Access Placement: right hand, right wrist, right forearm, right antecubital fossa, left hand, left wrist, left forearm, left antecubital fossa, left Upper Arm and. Catheter Size: 22 gauge. Patient has been given instructions and understands the test, consent obtained. Patient has been NPO for 4 hours. Medications Held: Metoprolol. INDICATIONS: I42.2 Other hypertrophic cardiomyopathy. CONCLUSIONS: 1. Stress echocardiogram NON-DIAGNOSTIC for myocardial ischemia due to HR achieved (69% MPHR) but no segmental wall motion abnormalities or ischemic changes on ECG at this HR. 2. Hypertrophic Cardiomyopathy. [place]-shaped LV cavity. Minimal asymmetric septal hypertrophy present. Septum= 1.5 cm. Posterior= 1.3 cm. Systolic anterior motion of the mitral valve leaflets. The LVOT peak gradient at rest is 25 mmHg. The LVOT peak gradient with Valsalva is 64 mmHg. 3. Normal hyperdynamic contractile response with no inducible ischemia. 4. LVOT peak gradient with exercise is 64 mmHg. LVOT gradient confirmed by HPRF and back-calculation using LA/LV gradient and simultaneous SBP. 5. Exercise performance was poor. ATTESTATION: I have personally reviewed this study with a fellow in a teaching setting and attest to the findings and conclusions. - DISCLAIMER: The study images and the final report will be retained in the patient chart by the Echo Laboratory for the legally required time period. This chart constitutes the legal record of any testing performed. FINDINGS: Left Ventricle: Normal left ventricular cavity size based on volume index. There is hyperdynamic left ventricular systolic function. The Ejection Fraction (Lara's) is measured at 75 %. The average global longitudinal strain is abnormal. The LV global strain is: -11.3 %. Hypertrophic Cardiomyopathy: Hypertrophic Cardiomyopathy. [place]-shaped LV cavity. Minimal asymmetric septal hypertrophy present. Septum= 1.5 cm. Posterior= 1.3 cm. Systolic anterior motion of the mitral valve leaflets. The LVOT peak gradient at rest is 25 mmHg. The LVOT peak gradient with Valsalva is 64 mmHg. Right Ventricle: Normal right ventricular size. Left Atrium: The left atrium is normal in size. Right Atrium: The right atrium is normal in size. Mitral Valve: Mild mitral valve regurgitation. No stenosis present. Aortic Valve: Normal trileaflet aortic valve. No aortic regurgitation. No aortic valve stenosis. Tricuspid Valve: Normal tricuspid valve structure. Mild tricuspid regurgitation. No tricuspid valve stenosis. Pulmonic Valve: Normal pulmonic valve structure. No pulmonic regurgitation. No pulmonic valve stenosis present. Pericardium: Normal pericardium without pericardial effusion. Aorta: Normal aortic root size at sinuses of Valsalva. Normal aortic root size when indexed. The ascending aorta is normal in size when indexed. IVC: The IVC was <2.1 cm and collapsibility >50%. (est. RA pressure 0-5 mmHg). The estimated RA pressure is 3 mmHg. PASP: The estimated pulmonary artery systolic pressure is 28.0 mmHg. Resting ECG: SB, Biatrial enlargement, NSSTWA. Stress Data: Exercise Time: 3 Min 4 Sec Resting HR: 54 bpm Resting BP: 116/67 mmHg Standing HR: 48 bpm Standing BP: 132/72 mmHg Peak HR: 115 bpm Peak BP: 134/68 mmHg Predicted Maximal HR: 166 Percent predicted max HR achieved: 69 % METS Achieved: 4.90 HR Response: Heart rate response is appropriate. BP Response: Blood pressure response is appropriate. Exercise ECG: No ischemic ST changes noted on exercise ECG. Reason for Termination: Limiting Dyspnea. Arrhythmia: No exercise induced arrhythmias. Cardiac Symptoms: Symptoms with stress were patient had no stress related symptoms. Exercise Performance: Exercise performance was poor. Exercise Stress LV Function: Normal hyperdynamic contractile response with no inducible ischemia. Resting Segmental Wall Motion Analysis: Total wall motion score is 1.00. There are no regional wall motion abnormalities. Peak Segmental Wall Motion Analysis: Total wall motion score is 1.00. There are no regional wall motion abnormalities. LVOT Peak Gradient with Exercise: LVOT peak gradient with exercise is 64 mmHg. LVOT gradient confirmed by HPRF and back-calculation using LA/LV gradient and simultaneous SBP. MEASUREMENTS: 2D/MM Value Range Doppler Value Range LVIDd 2D 4.21 cm [ 3.80 - 5.20 ] LVOT Diam 2.33 cm LVIDs 2D 2.34 cm [ 2.20 - 3.50 ] MV E Peak Maximiliano 1.0 m/s [ 0.6 - 1.3 ] IVSd 2D 1.55 cm [ 0.60 - 0.90 ] MV A Peak Maximiliano 0.2 m/s [ 1.0 - 1.2 ] LVPWd 2D 1.32 cm [ 0.60 - 0.90 ] MV E/A 4.6 ratio [ 0.8 - 1.5 ] LV Thickness Ratio 1.2 MV Decel Time 164.25 msec [ 104.00 - 258.00 ] LV FS 2D 44.54 % [ 27.00 - 45.00 ] Med E` Maximiliano 6.0 cm/sec [ 8.0 - 25.0 ] LV Mass 2D 236.18 g Lat E` Maximiliano 5.5 cm/sec [ 10.0 - 25.0 ] LV Mass Index 2D 97.60 g/m2 Average E/E` 17.39 RWT 0.63 RV S` 14.83 cm/sec EDV Mod BP 122.71 ml [ 46.00 - 106.00 ] TR Peak Maximiliano 2.5 m/s [ 1.0 - 2.8 ] LV EDV Index 50.71 ml/m2 TR Peak PG 25.0 mmHg ESV Mod BP 30.61 ml [ 14.00 - 42.00 ] RA Pressure 3 mmHg EF Mod BP 75 % [ 54 - 74 ] RVSP 28.00 mmHg LV GLS -11.3 % [ -25.0 - -18.0 ] PV Peak Maximiliano 0.7 m/s [ 0.4 - 0.8 ] LA Length 4C 5.71 cm PV Peak PG 1.96 mmHg LA Length 2C 5.53 cm LA Volume BP 73.05 ml LA Volume Index 30.19 ml/m2 [ 16.00 - 34.00 ] RV Base Dimen 2D 4.2 cm [ 2.5 - 4.2 ] RA Volume 55.94 ml RA Volume Index 23.12 ml/m2 AoR Diam 2D 2.98 cm [ 2.70 - 3.70 ] Ao Root Index 1.23 cm/m2 [ 1.00 - 2.00 ] Asc Ao Diam 2D 3.08 cm Asc Ao Index 1.27 cm/m2 Electronically Signed By: Criss Abbott M.D. 01/25/2025 10:16:05 AM CDT Wall Motion Analysis - Resting Wall Motion Analysis - Peak Procedure Note Criss Abbott MD - 01/25/2025 [facility] Cardiac [place] [address] Exercise Stress Transthoracic Echocardiographic Report Patient Name: ROMI BRADLEY : 1970 (55y ) Gender: F Study Date: 01/25/2025 07:15:00 AM Ht(Inch): 68 Wt(Lb): 270.06 BSA: 2.42 Elevator Repairer: Jenn Travis [facility] Location: [facility] Order Provider:FRED TEMPLETON Heart Rate: 52 BMI: 41.06 Ref Provider: FRED TEMPLETON PROCEDURES: Stress Echo Report: Stress Echocardiography transthoracic, real-time withimage documentation (2D), includes M-Mode recording, Doppler Echocardiographyand Doppler color flow when performed, during treadmill exercise induced peak heart ratewith interpretation and report; including performance of continuouselectrocardiographic monitoring, with physician supervision. Additional Procedures: Ultrasound enhancing agent (echo contrast) wasadministered. Contrast: Contrast Enhancement was Employed: used Perflutren contrastbecause 2 of 16 LV wall segments in any view not visualized, using the volume necessary toobtain adequate images. 1.5 ml Optison Administered, (1.5 ml wasted). Performed By: Donald Bustos RN. Supervising Physician: Dr. Criss Abbott. Procedure Notes: IV Access Placement: right hand, right wrist, rightforearm, right antecubital fossa, left hand, left wrist, left forearm, left antecubitalfossa, left Upper Arm and. Catheter Size: 22 gauge. Patient has been giveninstructions and understands the test, consent obtained. Patient has been NPO for 4 hours.Medications Held: Metoprolol. INDICATIONS: I42.2 Other hypertrophic cardiomyopathy. CONCLUSIONS: 1. Stress echocardiogram NON-DIAGNOSTIC for myocardial ischemia due to HRachieved (69% MPHR) but no segmental wall motion abnormalities or ischemic changes onECG at this HR. 2. Hypertrophic Cardiomyopathy. [place]-shaped LV cavity. Minimalasymmetric septal hypertrophy present. Septum= 1.5 cm. Posterior= 1.3 cm. Systolic anteriormotion of the mitral valve leaflets. The LVOT peak gradient at rest is 25 mmHg. The LVOTpeak gradient with Valsalva is 64 mmHg. 3. Normal hyperdynamic contractile response with no inducible ischemia. 4. LVOT peak gradient with exercise is 64 mmHg. LVOT gradient confirmed byHPRF and back-calculation using LA/LV gradient and simultaneous SBP. 5. Exercise performance was poor. ATTESTATION: I have personally reviewed this study with a fellow in a teaching settingand attest to the findings and conclusions. - DISCLAIMER: The study images and the final report will be retained in the patientchart by the Echo Laboratory for the legally required time period. This chart constitutesthe legal record of any testing performed. FINDINGS: Left Ventricle: Normal left ventricular cavity size based on volume index.There is hyperdynamic left ventricular systolic function. The Ejection Fraction(Lara's) is measured at 75 %. The average global longitudinal strain is abnormal. TheLV global strain is: -11.3 %. Hypertrophic Cardiomyopathy: Hypertrophic Cardiomyopathy. [place]-shapedLV cavity. Minimal asymmetric septal hypertrophy present. Septum= 1.5 cm. Posterior=1.3 cm. Systolic anterior motion of the mitral valve leaflets. The LVOT peakgradient at rest is 25 mmHg. The LVOT peak gradient with Valsalva is 64 mmHg. Right Ventricle: Normal right ventricular size. Left Atrium: The left atrium is normal in size. Right Atrium: The right atrium is normal in size. Mitral Valve: Mild mitral valve regurgitation. No stenosis present. Aortic Valve: Normal trileaflet aortic valve. No aortic regurgitation. Noaortic valve stenosis. Tricuspid Valve: Normal tricuspid valve structure. Mild tricuspidregurgitation. No tricuspid valve stenosis. Pulmonic Valve: Normal pulmonic valve structure. No pulmonicregurgitation. No pulmonic valve stenosis present. Pericardium: Normal pericardium without pericardial effusion. Aorta: Normal aortic root size at sinuses of Valsalva. Normal aortic rootsize when indexed. The ascending aorta is normal in size when indexed. IVC: The IVC was <2.1 cm and collapsibility >50%. (est. RA pressure 0-5mmHg). The estimated RA pressure is 3 mmHg. PASP: The estimated pulmonary artery systolic pressure is 28.0 mmHg. Resting ECG: SB, Biatrial enlargement, NSSTWA. Stress Data: Exercise Time: 3 Min 4 Sec Resting HR: 54 bpm Resting BP: 116/67 mmHg Standing HR: 48 bpm Standing BP: 132/72 mmHg Peak HR: 115 bpm Peak BP: 134/68 mmHg Predicted Maximal HR: 166 Percent predicted max HR achieved: 69 % METS Achieved: 4.90 HR Response: Heart rate response is appropriate. BP Response: Blood pressure response is appropriate. Exercise ECG: No ischemic ST changes noted on exercise ECG. Reason for Termination: Limiting Dyspnea. Arrhythmia: No exercise induced arrhythmias. Cardiac Symptoms: Symptoms with stress were patient had no stress relatedsymptoms. Exercise Performance: Exercise performance was poor. Exercise Stress LV Function: Normal hyperdynamic contractile response withno inducible ischemia. Resting Segmental Wall Motion Analysis: Total wall motion score is 1.00.There are no regional wall motion abnormalities. Peak Segmental Wall Motion Analysis: Total wall motion score is 1.00.There are no regional wall motion abnormalities. LVOT Peak Gradient with Exercise: LVOT peak gradient with exercise is 64mmHg. LVOT gradient confirmed by HPRF and back-calculation using LA/LV gradient andsimultaneous SBP. MEASUREMENTS: 2D/MM Value Range DopplerValue Range LVIDd 2D 4.21 cm [ 3.80 - 5.20 ] LVOT Diam2.33 cm LVIDs 2D 2.34 cm [ 2.20 - 3.50 ] MV E Peak Vel1.0 m/s [ 0.6 - 1.3 ] IVSd 2D 1.55 cm [ 0.60 - 0.90 ] MV A Peak Vel0.2 m/s [ 1.0 - 1.2 ] LVPWd 2D 1.32 cm [ 0.60 - 0.90 ] MV E/A4.6 ratio [ 0.8 - 1.5 ] LV Thickness Ratio 1.2 MV Decel Tpwi559.25 msec [ 104.00 - 258.00 ] LV FS 2D 44.54 % [ 27.00 - 45.00 ] Med E` Vel6.0 cm/sec [ 8.0 - 25.0 ] LV Mass 2D 236.18 g Lat E` Vel5.5 cm/sec [ 10.0 - 25.0 ] LV Mass Index 2D 97.60 g/m2 Average E/E`17.39 RWT 0.63 RV S`14.83 cm/sec EDV Mod BP 122.71 ml [ 46.00 - 106.00 ] TR Peak Vel2.5 m/s [ 1.0 - 2.8 ] LV EDV Index 50.71 ml/m2 TR Peak PG25.0 mmHg ESV Mod BP 30.61 ml [ 14.00 - 42.00 ] RA Pressure3 mmHg EF Mod BP 75 % [ 54 - 74 ] RVSP28.00 mmHg LV GLS -11.3 % [ -25.0 - -18.0 ] PV Peak Vel0.7 m/s [ 0.4 - 0.8 ] LA Length 4C 5.71 cm PV Peak PG1.96 mmHg LA Length 2C5.53 cm LA Volume BP73.05 ml LA Volume Index 30.19 ml/m2 [ 16.00 - 34.00 ] RV Base Dimen 2D 4.2 cm [ 2.5 - 4.2 ] RA Hoixgu66.94 ml RA Volume Index23.12 ml/m2 AoR Diam 2D 2.98 cm [ 2.70 - 3.70 ] Ao Root Index 1.23 cm/m2 [ 1.00 - 2.00 ] Asc Ao Diam 2D3.08 cm Asc Ao Index1.27 cm/m2 Electronically Signed By: Criss Abbott M.D. 01/25/2025 10:16:05 AM CDT Wall Motion Analysis - Resting Wall Motion Analysis - Peak us Fred Templeton MD CV ECHO PROCEDURES Final Resu lt from Last 3 Months Insurance [facility] Care Teams Heating And Blending Supervisor Relationship Specialty Start Date End Date Brooklyn Meng NP [address] [facility] [address] [place] [address] PCP - General Internal Medicine 12/03/24
--- OUTSIDE RECORDS SUMMARY | 2025-03-04 18:17 | XMS_ITS | Encounter Summary ---
Author Organization [facility] Healthcare Address [address] [place] [address] Care Team Providers Care Golf Ball Trimmer Name Role Phone Brooklyn Meng NP Primary Care Provider [phone] Encounter Details Date Type Department Care Team (Late st Contact Info) Description 01/25/2025 Results Follow-Up [facility] Medical Group Primary Care at [place] [address] [place] [address] Brooklyn Meng NP [address] [facility] [address] [place] [address] Stress Echo Exercise W Doppler/CF Social History Tobacco Use Types Packs/Day Years [...] on file Legal Sex Female 4:09 AM [employer] Gender Identity Female 03/30/2024 9:27 PM CDT Sexual Orientation Straight 03/30/2024 9: 27 PM CDT documented as of this encounter Plan of Treatment Not on file documented as of this encounter Visit Diagnoses Not on filedocumented in this encounter Care Teams Golf Ball Trimmer Relationship Specialty Start Date End Date Brooklyn Meng NP [address] [facility] [address] [place] [address] PCP - General Internal Medicine 12/03/24 documented as of this encounter
[2025-03-04] MEDS: SODIUM CHLORIDE 0.9% IV 1,000 ML 999 ML IV CONT (18:20)
[2025-03-04 20:44] LABS: Troponin I 0.014 ng/mL (0.000-0.034)
== END 2025-03-04 21:18 | disposition home or self-care (01) ==
PROVIDERS: Physician Assistant; Emergency Provider Student in an Organized Health Care Education/Training Program; PCP Nurse Practitioner
DX: I48.91 Unspecified atrial fibrillation (principal); E66.01 Morbid (severe) obesity due to excess calories; Z68.41 Body mass index [BMI] 40.0-44.9, adult; R73.03 Prediabetes; Z79.01 Long term (current) use of anticoagulants; Z79.82 Long term (current) use of aspirin; Z79.899 Other long term (current) drug therapy; Z77.22 Contact with and (suspected) exposure to environmental tobacco smoke (acute) (chronic); R00.1 Bradycardia, unspecified; R94.31 Abnormal electrocardiogram [ECG] [EKG]; I51.7 Cardiomegaly; I45.10 Unspecified right bundle-branch block
CPT/HCPCS: 36415; 71046; 80053; 83690; 84484; 85025; 85610; 85730; 93005; 96360; 99284; A9270; J7030